=== PATIENT | male | born 1955 | race Caucasian/White ===

== ENCOUNTER 2025-05-23 09:39 | Outpatient (CLI) | payer MEDICARE, OTHER, SELFPAY ==
--- OUTSIDE RECORDS SUMMARY | 2025-05-09 11:30 | XMS_ITS | Encounter Summary ---
Author Organization [employer] ([place], [place], [place], [place]) Address [address] [address] Care Team Providers Care Product Trainer Name Role Phone Anusha Alberto PA-C Primary Care Provider Jorge Luis Meléndez MD Unavailable [phone] Reason for Referral * Consultation (Routine) - New Request Specialty Diagnoses / Procedures Referred By Coty jenkins Referred To Contact Gastroenterology Diagnoses Malignant neoplasm of prostate (HCC) Jorge Luis Meléndez MD [address] [facility] [address] [place] [address] Phone: tel: fax: Referral ID Status Reason Start Date Expiration Date Visits Requested Visits Authorized [id number] New Request Specialty Services Required 05/09/2025 05/09/2026 1 1 Reason for Visit * Reason Comments New Oncology Encounter Details Date Type Department Care Team (Late st Contact Info) Description 05/09/2025 11:30 AM EDT [facility] [address] [place] [address] Jorge Luis Meléndez MD [address] [facility] [address] [place] [address] Malignant neoplasm of prostate (HCC) (Primary Dx) Social History Tobacco Use Types Packs/Day Years Used Date Smoking Tobacco: Former Cigarettes 0.5 25 Passive Smoke Exposure: Never Smokeless Tobacco: Never Alcohol Use Standard Drinks/Week Comments Yes 0 (1 standard drink = 0.6 oz pur e alcohol) Family and Community Support Answer Jaiden e Recorded Help with Day to Day Activities Not on file 12/11/2023 Feeling Lonely or Isolated Not on file 12/11 Educational Attainment Answer Date Stanislav rded Speak language other than Kiswahili at home Not on file 12/11/2023 Want help with school or training Not on file 12/11/2023 Substance Use Answer Date Recorded Used prescription meds for non-medical reasons N ot on file 12/11/2023 Used illegal drugs past 12 months Not on file 12/11/2023 Sex and Gender Information Value Date Recorded Sex Assigned at Not on file Legal Sex Male 5:17 PM CDT Gender Identity Not on file Sexual Orientation Not on file documented as of this encounter Last Filed Vital Signs Vital Sign Reading Time Taken Comments Blood Pressure 136/72 05/09/2025 12:16 PM EDT Pulse 72 05/09/2025 12:16 PM EDT Temperature 36.6 C (97.9 F) 05/09/2025 12:16 PM EDT Respiratory Rate 18 05/09/2025 12:16 PM EDT Oxygen Saturation 100% 05/09/2025 12:16 PM EDT Inhaled Oxygen Concentration - - Weight 81.2 kg (179 lb) 05/09/2025 12:16 PM EDT Height 182.9 cm (6') 05/09/2025 12:16 PM EDT Body Mass Index 24.28 05/09/2025 12:16 PM EDT documented in this encounter Progress Notes * Jorge Luis Meléndez MD - 05/09/2025 11:30 AM EDT I met Mr. Homero Bell today. This elderly man had been seen by me many years ago. He has had a diagnosed prostate cancer and had prostate radiation. Apparently that disease under control. He had aEGD and was found to have dilated blood vessels at the GE junction. That was not treated. Patient is concerned about bleeding. He had known me from before and sought out my opinion. He has had a considerable history of liver disease. PMH NKDA Medications include metoprolol 25 mg daily omeprazole 20 mg daily gabapentin 100 mg 3 times a day hydrocodone as needed fluticasone nasal spray Eligard 45 mg every 6 months Has had a history of GERD esophageal reflux disease he has had liver disease with portal hypertension hypersplenism and has had treatment for varices. FH: No history of cancer in the family SH: He does not smoke does not drink he is retired ROS: 14 point review is otherwise unremarkable. Examination jaundiced male vital stable HEENT exam remarkable neck is supple lungs are clear heart regular rate and rhythm abdomen with a organomegaly extremities without edema neurologic examinationis without deficits Patient with dilated blood vessels at the GE junction Plan obviously there is nothing I can do to help this situation I am going to send him to a different manufacturing plant technician to see if they have a different approach you are willing to do something. I will have the patient return only as needed. I have answered his questions Jorge Luis Meléndez MD 05/09/2025 5:27 PM documented in this encounter Plan of Treatment Scheduled Referrals Name Type Priority Associated Diagnoses Order Schedule Ambulatory referral to Gastroenterology Outpatient Referral Routine Malignant neoplasm of prostate (HCC) Expected: 05/09/2025, Expires: 05/09/2026 documented as of this encounter Visit Diagnoses Diagnosis Malignant neoplasm of prostate (HCC)- Primary Malignant neoplasm of prostate documented in this encounter Care Teams Product Trainer Relationship Specialty Start Date End Date Anusha Alberto PA-C PCP - General Physician Reducing Machine Operator 10/09/22 Jorge Luis Meléndez MD [address] [place] [address] Hematology and Oncology 05/05/25 documented as of this encounter
--- OUTSIDE RECORDS SUMMARY | 2025-05-23 09:41 | XMS_ITS | Clinical Summary ---
Author Organization [facility] Address [address] [place] [address] Phone Care Team Providers Care Retail Maintenance Technician Name Role Phone Reema Leonardo MD [ ] Conditions or Problems Problem Name Problem Code Onset Date Status Entry Date Provider Comment Standard Description Annotate SPINAL STENOSIS 07131996 (SNOMED CT) 08/08 Active 08/08 Reema Leonardo MD Spinal stenosis FATIGUE, CHRONIC 87326669 (SNOMED CT) 08/08 Active 08/08 Reema Leonardo MD Fatigue THROMBOCYTO PENIA, CHRONIC 491816644 (SNOMED CT) 08/08 Active 08/08 Reema Leonardo MD Thrombocytopenic disorder CHRONIC HEPATITIS C WITHOUT MENTION HEPATIC COMA B18.2 (ICD-10-CM) 07/11 Active 07/11 Evelyn Adair Chronic viral hepatitis C Medications Medication Instructions Start Date Stop Date Generic Name NDC Provider RESTORIL CAPS TEMAZEPAM CAPS [id number] Reema Leonardo MD ROYAL JELLY CAPSULE ROYAL JELLY CAPS [id number] Reema Leonardo MD EQL MILK THISTLE CAPS MILK THISTLE CAPS [id number] Reema Leonardo MD TYLENOL COLD TABLET PSEUDOEPH-CPM -DM-APAP TABS [id number] Reema Leonardo MD ADVIL CAPS prn IBUPROFEN CAPS [phone] Reema Leonardo MD Medications Administered No information available. Allergies, Adverse Reactions, Alerts No information available. Results Date Name Value Unit Range Flag Description Lab Report: CBC+Platelet+Hem Review, Comp. Metabolic Panel (14), NGI HCV ... ANTI-HAV Positive (Negative) A Hepatiti s A virus Ab [Presence] in Serum HBSAGC Negative (Negative) Hepatitis B virus surface Ag [Presence] in Serum or Plasma by Confirmatory method ANTI-HBS 0.13 (0.00-0.99 ) Hepatitis B virus surface Ab [Presence] in Serum HCV GENOTYPE 1 a (See Note) Hepat itis C virus genotype [Identifier] in Serum or Plasma by RICCO with probe detection ACTIV PTT 27 s (24-33) aPTT in Blo od by Coagulation assay PT PATIENT 10.9 s (8.7-11.5) Prothro mbin time (PT) INR 1.0 (0.8-1.2) INR in Plat elet poor plasma by Coagulation assay [id number] IU/mL GE use only - for [employer] import when terms are not otherwise specified SGPT (ALT) 84 U/L (0-55) H Alanine aminotransferase [Enzymatic activity/volume] in Serum or Plasma SGOT (AST) 59 U/L (0-40) H Aspartate aminotransferase [Enzymatic activity/volume] in Serum or Plasma ALK PHOS 91 U/L (25-150) Alkaline ph osphatase [Enzymatic activity/volume] in Blood BILI TOTAL 4.1 mg/dL (0.0-1.2) H Bilirubi n.total [Mass/volume] in Serum or Plasma A/G RATIO 1.8 (1.1-2.5) Albumin/G lobulin [Mass Ratio] in Serum or Plasma GLOBULIN 2.8 (1.5-4.5) Globulin [Mass/volume] in Serum ALBUMIN 4.9 g/dL (3.5-5.5) Albumin [Ma ss/volume] in Serum or Plasma PROTEIN, TOT 7.7 g/dL (6.0-8.5) Protei n [Mass/volume] in Serum or Plasma CALCIUM 9.8 mg/dL (8.7-10.2) Calcium [Moles/volume] in Serum or Plasma CO2 23 mmol/L (20-32) Carbon dioxid e, total [Moles/volume] in Venous blood CHLORIDE 102 mmol/L (97-108) Chloride [Moles/volume] in Serum or Plasma POTASSIUM 4.2 mmol/L (3.5-5.2) Potassium [Moles/volume] in Serum or Plasma SODIUM 139 mmol/L (135-145) Sodium [Mol es/volume] in Serum or Plasma BUN/CREAT 14 (9-20) Urea nitrogen/Creatinine [Mass Ratio] in Serum or Plasma CREATININE 0.84 mg/dL (0.76-1.27 ) Creatinine [Mass/volume] in Serum or Plasma BUN 12 mg/dL (6-24) Urea nitrogen [Mass/volume] in Serum or Plasma BG RANDOM 93 mg/dL (65-99) Glucose [Ma ss/volume] in Blood NEUT CT MANU 2.0 X10E3/UL 10*3/mm3 (1.8-7.8) neutrophil count, blood, manual BASO % MANU 1 % (0-3) basophils as percent of blood leukocytes, manual count EOS % MANU 2 % (0-7) eosinophil s as percent of blood leukocytes, manual count MONOS % MANU 10 % (4-13) monocyte s as percent of blood leukocytes, manual count LYMPH % MANU 25 % (14-46) lymphocy bryant as percent of blood leukocytes, manual count PMN%(MANUAL) 62 (40-74) neutroph ils, polymorphonuclear as percent of blood leukocytes, manual count PLATELETS 112 X10E3/UL 10*3/mm3 (140-415) L Ever telets [#/volume] in Blood by Automated count RDW 13.2 % (11.7-15.0 ) Erythrocyte distribution width [Ratio] by Automated count MCHC 34.1 G/DL (32.0-36.0 ) MCHC [Mass/volume] by Automated count MCH 34.9 pg (27.0-34.0 ) H MCH [Entitic mass] by Automated count MCV 102 fL (80-98) H MCV [Entitic volume] by Automated count HCT 41.3 % (36.0-50.0 ) Hematocrit [Volume Fraction] of Blood by Automated count HGB 14.1 g/dL (12.5-17.0 ) Hemoglobin [Mass/volume] in Blood RBC 4.04 X10E6/UL 10*6/mm3 (4.10-5.60 ) L Erythrocytes [#/volume] in Blood by Automated count WBC 3.3 X10E3/UL 10*3/mm3 (4.0-10.5) L Leuk ocytes [#/volume] in Blood by Automated count Office Visit: rm5 MEDS REVIEW Done Documenta tion of current medications (procedure) SMOK STATUS former smoker Tob acco smoking status Plan of Care No information available. Procedures No information available. Vital Signs Date Name Value Unit Description BMI (Body Mass Index) 22.05 kg/m2 Bod y Mass Index (Ratio) Body Temperature 97.4 [degF] temperat ure E&M BP Diastolic 64 mm[Hg] blood pressu re, diastolic BP Systolic 132 mm[Hg] blood pressur e, systolic Heart Rate 76 /min pulse rate Height 72 [in_us] height E&M Respiratory Rate 16 /min respirat ory rate E&M Weight Measured 162 [lb_av] weight E& M Weight Measured 162 [lb_av] weight E& M Immunizations No information available. Advance Directives No information available.
--- OUTSIDE RECORDS SUMMARY | 2025-05-23 09:42 | XMS_ITS | Encounter Summary ---
Author Organization [facility] Address [address] [place] [address] Care Team Providers Care Scale Manager Name Role Phone Desiree Fofana Juliet OCONNELL Primary Care Provider [phone] Encounter Details Date Type Department Care Team (Late st Contact Info) Description 11/12/2017 Telephone [facility] [address] [place] [id number] Prince Gordillo MD [address] [place] [address] Social History Tobacco Use Types Packs/Day Years Used Date Smoking Tobacco: Former Cigarettes 0.5 10 1 - 09/10/2007 Smokeless Tobacco: Never Alcohol Use Standard Drinks/Week Comments Yes 0 (1 standard drink = 0.6 oz pure alcohol) Beer or glass of wine once a day Sex and Gender Information Value Date Recorded Sex Assigned at Not on file Legal Sex Male 12:05 PM EDT Gender Identity Not on file Sexual Orientation Not on file documented as of this encounter Plan of Treatment Upcoming Encounters Date Type Department Care Team (Late Contact Info) Description 08/23/2025 9:30 AM EDT Office Visit [facility] GASTR[facility]OLOGY [address] [facility] [address] [place] [address] Janet Burroughs APRN [address] [facility] [address] [place], [place] [id number] documented as of this encounter Visit Diagnoses Not on filedocumented in this encounter Additional Health Concerns Infection Onset Date Last Indicated Resolved Time COVID Screen (preop/placement) 08/01/2020 08/01/2020 08/01/2020 2:28 PM EDT documented as of this encounter Care Teams Scale Manager Relationship Specialty Start Date End Date Desiree Fofana DO [address] [place] [address] PCP - General Family Medicine 01/25/25 documented as of this encounter
--- OUTSIDE RECORDS SUMMARY | 2025-05-23 09:42 | XMS_ITS | Encounter Summary ---
Author Organization [employer] ([place], [place], [place], [place]) Address [address] [place] [address] Care Team Providers Care Jd Edwards Name Role Phone Anusha Alberto PA-C Primary Care Provider Jorge Luis Meléndez MD Unavailable [phone] Encounter Details Date Type Department Care Team (Late st Contact Info) Description 07/31/2020 Transcribed Document [facility] Family Medicine [address] [place] [address] ProviderСветлана MD [address] [place] [address] Social History Tobacco Use Types Packs/Day Years Used Date Smoking Tobacco: Never Assessed Sex and Gender Information Value Date Recorded Sex Assigned at Not on file Legal Sex Male 5:17 PM CDT Gender Identity Not on file Sexual Orientation Not on file documented as of this encounter Miscellaneous Notes * [employer] Conversion Note - Светлана ProviderMD - 07/31/2020 9:31 AM CDT Patient: JACKSON BELL Age: 65 years Sex: Male : 1955 Associated Diagnoses: None Author: ITZ GRANT PA-C PRE PROCEDURE NOTE I have evaluated the patient prior to the procedure. ASA score: 2 Mallampati score: 2 ASA SCORE ASA 1: Healthy patients ASA 2 : Mild to moderate systemic disease caused by the surgical condition or by other pathological processes, and medically well controlled. ASA 3: Severe disease process which limits activity but is not incapacitating ASA 4: Severe incapacitating disease process that is a constant threat to life ASA 5: Moribund patient not expected to survive 24 hours with or without an operation ASA 6: Declared brain- patient whose organs are being removed for donor purposes Mallampati Score Class I: Soft palate, uvula, fauces, pillars visible. Class II: Soft palate, major part of uvula, fauces visible Class III: Soft palate, base of uvula visible Class IV: Only hard palate visible documented in this encounter Plan of Treatment Not on file documented as of this encounter Visit Diagnoses Not on filedocumented in this encounter Care Teams Jd Edwards Relationship Specialty Start Date End Date Anusha Alberto PA-C PCP - General Physician Spin Tank Tender 10/09/22 Jorge Luis Meléndez MD [address] [place] [address] Hematology and Oncology 05/05/25 documented as of this encounter
--- OUTSIDE RECORDS SUMMARY | 2025-05-23 09:42 | XMS_ITS | Encounter Summary ---
Author Organization [employer] ([place], [place], [place], [place]) Address [address] [place] [address] Care Team Providers Care Gold Letterer Name Role Phone Anusha Alberto PA-C Primary Care Provider Jorge Luis Meléndez MD Unavailable [phone] Encounter Details Date Type Department Care Team (Late st Contact Info) Description 08/01/2020 Transcribed Document [facility] [place] [address] [place] [address] ProviderСветлана MD [address] [place] [address] Social History Tobacco Use Types Packs/Day Years Used Date Smoking Tobacco: Never Assessed Sex and Gender Information Value Date Recorded Sex Assigned at Not on file Legal Sex Male 5:17 PM CDT Gender Identity Not on file Sexual Orientation Not on file documented as of this encounter Miscellaneous Notes * [employer]ner Conversion Note - Светлана ProviderMD - 08/01/2020 2:57 AM CDT [facility] [address] [place] [address] PERSON INFORMATION Name JACKSON BELL Age 65 Years 1955 Sex Male Language Malian PCP ANNIKA [address] Marital Status Med Service Emergency Medicine Acct# Arrival 07/31/2020 20:31:00 Visit Reason Abdominal pain; Abdominal pain; HAD LIVER BIOSPY TODAY/ SEVERE PAIN AND NAUSEA Acuity 3 - Urgent LOS 000 06:26 Depart Date: 00:00 AM Address: [facility] [address] [place] [address] Comment: PROVIDER INFORMATION Provider Role Assigned Unassigned Laura Lopez, [employer] PARKER Nurse 07/31/2020 21:19:23 GLORIA CORDERO MD ED Physician 07/31/2020 21:33:56 DIAGNOSIS Acute hepatic failure PHYS DOC NOTES VITALS INFORMATION Vital Sign Triage Latest Temp Source Tympanic Tympanic Temp Mode Fahrenheit Fahrenheit Temp Fahrenheit 98.1 Deg F 98.1 Deg F Temp Celsius 02 Sat 100 % 97 % Respiratory Rate 18 Breaths/Min 16 Breaths/Min Peripheral Pulse Rate 81 bpm 81 bpm Apical Heart Rate Blood Pressure 109 mmHg / 68 mmHg 156 mmHg / 74 mmHg Comment: MEDICAL INFORMATION Allergy Info: No Known Allergies Medications: Comment: DISCHARGE INFORMATION Discharge Disposition: Discharge Location: PATIENT EDUCATION INFORMATION Instructions: Liver Failure Follow up: Comment: Electronically signed by Efren [facility] Conversion Weather Anchor Cerner at 03/11/2023 10:33 AM CDT documented in this encounter Plan of Treatment Not on file documented as of this encounter Visit Diagnoses Not on filedocumented in this encounter Care Teams Gold Letterer Relationship Specialty Start Date End Date Anusha Alberto PA-C PCP - General Physician Certified Medical Assistant 10/09/22 Jorge Luis Meléndez MD [address] [address] Hematology and Oncology 05/05/25 documented as of this encounter
--- OUTSIDE RECORDS SUMMARY | 2025-05-23 09:42 | XMS_ITS | Encounter Summary ---
Author Organization [email or web address] ([place], [place], [place], [place]) Address [address] [place] [address] Care Team Providers Care Tool And Equipment Rental Clerk Name Role Phone Anusha Alberto PA-C Primary Care Provider Jorge Luis Meléndez MD Unavailable [phone] Encounter Details Date Type Department Care Team (Late st Contact Info) Description 07/31/2020 Transcribed Document [facility] [place] [address] [place] [address] ProviderСветлана MD [address] [place] [address] Social History Tobacco Use Types Packs/Day Years Used Date Smoking Tobacco: Never Assessed Sex and Gender Information Value Date Recorded Sex Assigned at Not on file Legal Sex Male 5:17 PM CDT Gender Identity Not on file Sexual Orientation Not on file documented as of this encounter Miscellaneous Notes * Cerner Conversion Note - Светлана ProviderMD - 07/31/2020 7:28 AM CDT Pre Procedure Adult Entered On: 07/31/2020 7:31 EDT Performed On: 07/31/2020 7:28 EDT by GUIDO MCKINNEY RN Height and Weight, Clinical Dosing Height Source : Measured Height Entry Format : [place] Height, Feet : 6 ft(Converted to: 183 cm, 72 Inch) Height, Inches : 0 Inch(Converted to: 0 ft 0 Inch, 0.00 cm) Clinical Height : 182.88 cm Weight Source : Standing scale Weight Entry Format : [place] Clinical Dosing Weight : 79.55 kg Weight, Pounds : 175 lb Body Surface Area (BSA) : 2.01 m2 Body Mass Index : 23.8 kg/m2 [place] Body Weight : 77 kg GUIDO MCKINNEY RN - 07/31/2020 7:28 EDT Health Histories Smoking Status : Former smoker, quit more than 30 days ago Smokeless Tobacco Status : Never GUIDO MCKINNEY RN - 07/31/2020 7:28 EDT Social History (As Of: 07/31/2020 07:31:39 EDT) Tobacco: Smoking Status Former smoker. Years of Use: 10. Packs/Tins Daily: .5. Last Used: 1989. (Last Updated: 10/28/2013 08:51:40 EST by LAN FAJARDO, RN) Alcohol: Use in Last 12 Months: Yes. Days/Week: 2. (Last Updated: 10/28/2013 08:51:40 EST by LAN FAJARDO, RN) Substance Abuse: Drug Use Hx: No. Use in Last 12 Months: No. (Last Updated: 02/20/2015 07:36:57 EDT by LUZ MARINA MCCOY RN) Infectious Disease History Has the patient ever been tested for COVID-19? : Yes, Patient stated results pending Date of COVID-19 test known? : No Does patient have symptoms of COVID-19? : No COVID19 Screening : No Experiencing Infectious Disease Symptoms : No symptoms Physical contact outside US in the last 30 days : No Infectious Disease History : None, Hepatitis C, Hepatitis Non A, B, C Tuberculosis Symptoms : None GUIDO MCKINNEY RN - 07/31/2020 7:28 EDT COVID19 PreProcedure Screening Is this an Emergent or Add on Procedure? : No Has patient been isolated since the test : N/A - PreProcedure, in-person visit Exposed to COVID19 symptoms since test? : N/A - PreProcedure, in-person visit GUIDO MCKINNEY RN - 07/31/2020 7:28 EDT Anesthesia/Transfusion History Family History of Anesthesia Reaction : Prior transfusion without reaction Blood Transfusion Acceptable to Patient : Yes Transfusion History : Prior anesthesia without reaction Family History of Anesthesia Reaction : None GUIDO MCKINNEY RN - 07/31/2020 7:28 EDT Functional Assessment Living Situation : Home Patient Lives With : Spouse Current Home Treatments : None GUIDO MCKINNEY RN - 07/31/2020 7:28 EDT [place] Suicide Severity Rating Scale (C-SSRS) CSSRS Past Month Wish to be : No CSSRS Past Month Suicidal Thoughts : No CSSRS Lifetime Suicide Behavior : No Suicide Severity Rating Score : 0 Suicide Severity Rating : No Additional Care Required at this time GUIDO MCKINNEY RN - 07/31/2020 7:28 EDT Psychosocial History Do You Have a History of the Following? : Patient denies history Currently in Unsafe Situation : No GUIDO MCKINNEY RN - 07/31/2020 7:28 EDT Advance Directive Patient has Advance Directive *Q : No, patient refuses Advance Directive information GUIDO MCKINNEY RN - 07/31/2020 7:28 EDT Teaching/Learning Assessment Barriers To Learning : None evident Individuals Taught : Patient Readiness to Learn : Cooperative Baseline Knowledge of Topic : Good Readiness to Learn : Explanation, Printed materials Learning Style Preferences Patient : Demonstration, Printed materials Learning Style Preferences Family : Verbal explanation GUIDO MCKINNEY RN - 07/31/2020 7:28 EDT General Info Support Person/Pt Rep Name : Renetta Support Person/Pt Rep Contact Information : [phone] Want Family/Rep/Phys Notified of Admit : No Emergency Contact #1 : Renetta Emergency Contact #1 Emergency Contact #1 Relationship : Emergency Contact #2 : na Emergency Contact #2 Phone Number : na Emergency Contact #2 Relationship : na Chief Complaint : liver biopsy Primary Language : Gabonese Preferred Communication Mode : Verbal Communication Barrier : None Plaster Caster Needed : GUIDO Reeves RN - 07/31/2020 7:28 EDT Vital Measurements Temperature Source : Temporal artery scanning Temperature Mode : Fahrenheit Temperature, Fahrenheit : 97.3 Deg F Clinical Temperature, C : 36.3 Deg C Pulse Method : Non-Invasive BP Device Pulse Source : Brachial, Right Peripheral Pulse Rate : 85 bpm Respiratory Rate : 16 Breaths/Min Blood Pressure Location : Arm, right upper Blood Pressure Source : Non-Invasive BP Device Blood Pressure Position : Supine Systolic Blood Pressure : 184 mmHg (HI) Diastolic Blood Pressure : 90 mmHg Oxygen Saturation : 100 % Oxygen Therapy Mode : Room air GUIDO MCKINNEY RN - 07/31/2020 7:28 EDT Sleep Apnea Risk Assmt Hx of Obstructive Sleep Apnea Diagnosis : No Snore Loudly : No Tired, Fatigued, or Sleepy During Day : No Observed Stopping Breathing During Sleep : No Have/Are Being Treated for Hypertension : No BMI Greater Than 35 kg/m2 : No Age over 50 Years Old : Yes Neck Circumference Greater Than 40 cm : No Gender Male : Yes STOP-BANG Sleep Apnea Risk Level Score : 2 GUIDO MCKINNEY RN - 07/31/2020 7:28 EDT James Scale James Sensory Perception : No impairment James Moisture : Rarely moist James Activity : Walks frequently James Mobility : No limitation James Nutrition : Adequate James Friction and Shear : No apparent problem James Score : 22 GUIDO MCKINNEY RN - 07/31/2020 7:28 EDT Pain Assessment Pain Assessment : Initial assessment Pain Scale Used : 0-10 Scale Location : Abdomen, right upper, Other: joints GUIDO MCKINNEY RN - 07/31/2020 7:28 EDT Fall Risk Scales ABCs Fall Injury Risk Identification : None DOUGLASS Hx Falls Immediate/Within 3 Months : No [place] Secondary Diagnosis : No DOUGLASS Use of Ambulatory Aid : None D[place] IV Therapy or IV Access : Yes [place] Gait/Transferring : Normal, bedrest, immobile [place] Mental Status : Oriented to own ability [place] Fall Risk Score : 20 D[place] Fall Scale Risk Level : 0-24 Low Risk [place] Fall Interventions : Adequate lighting, Assistive devices within reach, Bed in low position, Call device within reach, Hourly comfort/safety rounds Fall Moderate to High Risk Interventions : Patient room close to nurses station Fall Risk Scale Calc Temp : 0 GUIDO MCKINNEY RN - 07/31/2020 7:28 EDT Valuables and Belongings Valuables and Belongings : Clothing Clothing : Common streetwear Clothing Disposition : With patient, Declines to send to security/safe GUIDO MCKINNEY RN - 07/31/2020 7:28 EDT Pain Scale Intensity : 7 GUIDO MCKINNEY RN - 07/31/2020 7:28 EDT Image 4 - Images currently included in the form version of this document have not been included in the text rendition version of the form. Kg Coma Kg Best Motor Response : Obey commands [place] Best Verbal Response : Oriented Kg Eye Opening Response : Spontaneous Kg Coma Score : 15 GUIDO MCKINNEY RN - 07/31/2020 7:28 EDT documented in this encounter Plan of Treatment Not on file documented as of this encounter Visit Diagnoses Not on filedocumented in this encounter Care Teams Tool And Equipment Rental Clerk Relationship Specialty Start Date End Date Anusha Alberto PA-C PCP - General Physician Agile Qa Tester 10/09/22 Jorge Luis Meléndez MD [address] [place] [id number] Hematology and Oncology 05/05/25 documented as of this encounter
--- OUTSIDE RECORDS SUMMARY | 2025-05-23 09:42 | XMS_ITS | Encounter Summary ---
Author Organization [employer] ([place], [place], [place], [place]) Address [address] [place] [address] Care Team Providers Care Boxing And Pressing Supervisor Name Role Phone Anusha Alberto PA-C Primary Care Provider Jorge Luis Meléndez MD Unavailable [phone] Encounter Details Date Type Department Care Team (Late st Contact Info) Description 07/31/2020 Transcribed Document [facility] [place] Medicine [address] [place] [address] ProviderСветлана MD [address] [place] [address] Social History Tobacco Use Types Packs/Day Years Used Date Smoking Tobacco: Never Assessed Sex and Gender Information Value Date Recorded Sex Assigned at Not on file Legal Sex Male 5:17 PM CDT Gender Identity Not on file Sexual Orientation Not on file documented as of this encounter Miscellaneous Notes * Cerner Conversion Note - Светлана ProviderMD - 07/31/2020 11:54 AM CDT Nursing Discharge Summary Entered On: 07/31/2020 11:56 EDT Performed On: 07/31/2020 11:54 EDT by GUIDO MCKINNEY RN Discharge Documentation Discharge Date/Time : 07/31/2020 11:40 EDT Transporter Signature : GUIDO MCKINNEY RN Patient Disposition, General : Discharge Discharge To : Home with ambulatory/outpatient follow-up Mode Of Departure, General Discharge : Wheelchair with adult Accompanied By, Discharge : Spouse IV Discontinued : Yes Personal Belongings With Patient : Yes Pt's Own Supply of Medications Returned : No patient supply of medications to return Prescriptions Given to Patient : Other: n/a Medications Given to Patient : Yes Discharge Instructions Reviewed With, Opportunity For Questions Given : Patient, Spouse Patient Education Completed : Yes Teaching Method : Explanation, Printed materials Teaching Evaluation : Verbalizes understanding GUIDO MCKINNEY RN - 07/31/2020 11:54 EDT Electronically signed by Efren [facility] Conversion Roaster Helper Cerner at 03/11/2023 10:25 AM CDT documented in this encounter Plan of Treatment Not on file documented as of this encounter Visit Diagnoses Not on filedocumented in this encounter Care Teams Boxing And Pressing Supervisor Relationship Specialty Start Date End Date Anusha Alberto PA-C PCP - General Physician Metal Worker 10/09/22 Jorge Luis Melén[place] [address] [place] [phone] Hematology and Oncology 05/05/25 documented as of this encounter
--- OUTSIDE RECORDS SUMMARY | 2025-05-23 09:42 | XMS_ITS | Encounter Summary ---
Author Organization [employer] ([place], [place], [place], [place]) Address [address] [place] [address] Care Team Providers Care Nursing Specialist Name Role Phone Anusha Alberto PA-C Primary Care Provider Jorge Luis Meléndez MD Unavailable [phone] Encounter Details Date Type Department Care Team (Late st Contact Info) Description 07/31/2020 Transcribed Document [facility] Family Medicine [address] [place] [address] ProviderСветлана MD [address] [place] [address] Social History Tobacco Use Types Packs/Day Years Used Date Smoking Tobacco: Never Assessed Sex and Gender Information Value Date Recorded Sex Assigned at Not on file Legal Sex Male 5:17 PM CDT Gender Identity Not on file Sexual Orientation Not on file documented as of this encounter Miscellaneous Notes * Cerner Conversion Note - Светлана ProviderMD - 07/31/2020 8:31 PM CDT ED Triage Entered On: 07/31/2020 21:17 EDT Performed On: 07/31/2020 21:14 EDT by Pina Franklin RN ED Triage Across the Room Chief Complaint : Pt co Right sided abdominal pain to back that began at noon today. Pt had Liver biopsy performed today at 9am Pt is grimacing in pain. Triage Date/Time : 07/31/2020 21:14 EDT Pina Franklin RN - 07/31/2020 21:14 EDT DCP GENERIC CODE Tracking Acuity : 3 - Urgent Tracking Group : [facility] Pina Franklin RN - 07/31/2020 21:14 EDT Mode of Arrival : Wheelchair Transported to ED by : Private vehicle To Room Via : Wheelchair Accompanied By : Significant other ED Vital Signs : Document Height & Weight : Document ED Allergies : Document ED Reason for Visit : Document Pina Franklin RN - 07/31/2020 21:14 EDT Infectious Disease History Has the patient ever been tested for COVID-19? : Yes, Patient stated results Negative Date of COVID-19 test known? : No Date Comment : Thursday Does patient have symptoms of COVID-19? : No COVID19 Screening : No Experiencing Infectious Disease Symptoms : Abdominal pain Physical contact outside US in the last 30 days : No Infectious Disease History : None, Hepatitis C, Hepatitis Non A, B, C Tuberculosis Symptoms : None Pina Franklin RN - 07/31/2020 21:14 EDT Vital Signs ED Temperature Source : Tympanic Temperature Mode : Fahrenheit Temperature, Fahrenheit : 98.1 Deg F ED Pain : Yes Clinical Temperature, C : 36.7 Deg C Oxygen Therapy Mode : Room air, Venti-Mask Peripheral Pulse Rate : 81 bpm Respiratory Rate : 18 Breaths/Min Systolic Blood Pressure : 109 mmHg Diastolic Blood Pressure : 68 mmHg Oxygen Saturation : 100 % Pina Franklin RN - 07/31/2020 21:14 EDT Allergy (As Of: 07/31/2020 21:17:20 EDT) Allergies (Active) No Known Allergies Estimated Onset Date: Unspecified ; Created By: ALTHAE REID RPh; Reaction Status: Active ; Substance: No Known Allergies ; Type: Allergy ; Updated By: ALTHEA REID RPh; Reviewed Date: 07/26/2020 13:56 EDT Diagnosis Control ED (As Of: 07/31/2020 21:17:20 EDT) Problems(Active) Anemia (SNOMED CT :884179499 ) Name of Problem: Anemia ; Recorder: LUZ MARINA MCCOY RN; Confirmation: Confirmed ; Classification: Patient Stated ; Code: [id number] ; Contributor System: [employer] ; Last Updated: 02/20/2015 7:30 EDT ; Life Cycle Date: 02/20/2015 ; Life Cycle Status: Active ; Vocabulary: SNOMED CT Arthritis (SNOMED CT :6416677 ) Name of Problem: Arthritis ; Recorder: LUZ MARINA MCCOY RN; Confirmation: Confirmed ; Classification: Patient Stated ; Code: 3968793 ; Contributor System: [employer] ; Last Updated: 02/20/2015 7:29 EDT ; Life Cycle Date: 02/20/2015 ; Life Cycle Status: Active ; Vocabulary: SNOMED CT At risk for sleep apnea (IMO :94677683 ) Name of Problem: At risk for sleep apnea ; Recorder: SYSTEM, SYSTEM; Confirmation: Confirmed ; Classification: Medical ; Code: [id number] ; Last Updated: 07/26/2020 14:04 EDT ; Life Cycle Date: 07/26/2020 ; Life Cycle Status: Active ; Vocabulary: IMO Back pain (SNOMED CT :348636876 ) Name of Problem: Back pain ; Recorder: LUZ MARINA MCCOY RN; Confirmation: Confirmed ; Classification: Patient Stated ; Code: 213630946 ; Contributor System: Power[employer] ; Last Updated: 02/20/2015 7:29 EDT ; Life Cycle Date: 02/20/2015 ; Life Cycle Status: Active ; Vocabulary: SNOMED CT Disorder of prostate (SNOMED CT :53579300 ) Name of Problem: Disorder of prostate ; Recorder: LAN FAJARDO RN; Confirmation: Confirmed ; Classification: Patient Stated ; Code: 54718330 ; Contributor System: [employer] ; Last Updated: 05/04/2014 19:28 EDT ; Life Cycle Date: 10/28/2013 ; Life Cycle Status: Active ; Vocabulary: SNOMED CT Fibrosis of liver (SNOMED CT :147601564 ) Name of Problem: Fibrosis of liver ; Recorder: LAN FAJARDO RN; Confirmation: Confirmed ; Classification: Patient Stated ; Code: 776126770 ; Contributor System: [employer] ; Last Updated: 05/04/2014 19:28 EDT ; Life Cycle Date: 10/28/2013 ; Life Cycle Status: Active ; Vocabulary: SNOMED CT GERD - Gastro-esophageal reflux disease (SNOMED CT :2295326673 ) Name of Problem: GERD - Gastro-esophageal reflux disease ; Recorder: LUZ MARINA MCCOY RN; Confirmation: Confirmed ; Classification: Patient Stated ; Code: 1874920196 ; Contributor System: Power[employer] ; Last Updated: 02/20/2015 7:28 EDT ; Life Cycle Date: 02/20/2015 ; Life Cycle Status: Active ; Vocabulary: SNOMED CT Hiatal hernia (SNOMED CT :615213002 ) Name of Problem: Hiatal hernia ; Recorder: LUZ MARINA MCCOY RN; Confirmation: Confirmed ; Classification: Patient Stated ; Code: 779327359 ; Contributor System: PowerChart ; Last Updated: 02/20/2015 7:28 EDT ; Life Cycle Date: 02/20/2015 ; Life Cycle Status: Active ; Vocabulary: SNOMED CT High blood pressure (SNOMED CT :14598275 ) Name of Problem: High blood pressure ; Recorder: LAN FAJARDO RN; Confirmation: Confirmed ; Classification: Patient Stated ; Code: 34946016 ; Contributor System: Power[employer] ; Last Updated: 05/04/2014 19:28 EDT ; Life Cycle Date: 10/28/2013 ; Life Cycle Status: Active ; Vocabulary: SNOMED CT Irritable bowel syndrome (SNOMED CT :75913888 ) Name of Problem: Irritable bowel syndrome ; Recorder: LUZ MARINA MCCOY RN; Confirmation: Confirmed ; Classification: Patient Stated ; Code: 87801433 ; Contributor System: [employer] ; Last Updated: 02/20/2015 7:28 EDT ; Life Cycle Date: 02/20/2015 ; Life Cycle Status: Active ; Vocabulary: SNOMED CT Murmur (SNOMED CT :934826014 ) Name of Problem: Murmur ; Recorder: LUZ MARINA MCCOY RN; Confirmation: Confirmed ; Classification: Patient Stated ; Code: 495954587 ; Contributor System: [employer] ; Last Updated: 02/20/2015 7:27 EDT ; Life Cycle Date: 02/20/2015 ; Life Cycle Status: Active ; Vocabulary: SNOMED CT Peripheral vascular disease (SNOMED CT :8007922159 ) Name of Problem: Peripheral vascular disease ; Recorder: LUZ MARINA MCCOY RN; Confirmation: Confirmed ; Classification: Patient Stated ; Code: 9469429255 ; Contributor System: [employer] ; Last Updated: 02/20/2015 7:27 EDT ; Life Cycle Date: 02/20/2015 ; Life Cycle Status: Active ; Vocabulary: SNOMED CT Prostate cancer (SNOMED CT :3354742128 ) Name of Problem: Prostate cancer ; Recorder: CHRISTELLE CHANDRA RN; Confirmation: Confirmed ; Classification: Patient Stated ; Code: 6295957442 ; Contributor System: [employer] ; Last Updated: 07/26/2020 13:58 EDT ; Life Cycle Date: 07/26/2020 ; Life Cycle Status: Active ; Vocabulary: SNOMED CT Restless legs syndrome (SNOMED CT :79669834 ) Name of Problem: Restless legs syndrome ; Recorder: LUZ MARINA MCCOY RN; Confirmation: Confirmed ; Classification: Patient Stated ; Code: 73544595 ; Contributor System: [employer] ; Last Updated: 02/20/2015 7:29 EDT ; Life Cycle Date: 02/20/2015 ; Life Cycle Status: Active ; Vocabulary: SNOMED CT Diagnoses(Active) Abdominal pain Date: 07/31/2020 ; Diagnosis Type: Reason For Visit ; Confirmation: Complaint of ; Clinical Dx: Abdominal pain ; Classification: Medical ; Clinical Service: Non-Specified ; Code: PNED ; Probability: 0 ; Diagnosis Code: [id number] ED Height and Weight Height Source : Measured Height Entry Format : [place] Height, Feet : 6 ft(Converted to: 183 cm, 72 Inch) Height, Inches : 0 Inch(Converted to: 0 ft 0 Inch, 0.00 cm) Clinical Height : 182.88 cm Weight Source, ED : Critical estimated dosing weight Weight Entry Format : [place] Weight, Pounds : 175 lb Clinical Dosing Weight : 79.55 kg Body Surface Area (BSA) : 2.01 m2 Body Mass Index : 23.8 kg/m2 [place] Body Weight (IBW) : 76.59 kg Pina Franklin RN - 07/31/2020 21:14 EDT Pain Assessment Pain Assessment : Initial assessment Pain Scale Used : 0-10 Scale Pina Franklin RN - 07/31/2020 21:14 EDT Pain Scale Intensity : 9 Pina Franklin RN - 07/31/2020 21:14 EDT Image 4 - Images currently included in the form version of this document have not been included in the text rendition version of the form. documented in this encounter Plan of Treatment Not on file documented as of this encounter Visit Diagnoses Not on filedocumented in this encounter Care Teams Nursing Specialist Relationship Specialty Start Date End Date Anusha Alberto PA-C PCP - General Physician Die Cutter Diamond 10/09/22 Jorge Luis Meléndez MD [address] [phone] Hematology and Oncology 05/05/25 documented as of this encounter
--- OUTSIDE RECORDS SUMMARY | 2025-05-23 09:42 | XMS_ITS | Encounter Summary ---
Author Organization [employer] ([place], [place], [place], [place]) Address [address] [place] [address] Care Team Providers Care Cotton Jammer Name Role Phone Anusha Alberto PA-C Primary Care Provider Jorge Luis Meléndez MD Unavailable [phone] Encounter Details Date Type Department Care Team (Late st Contact Info) Description 07/31/2020 Transcribed Document [facility] [place] [address] [place] [address] ProviderСветлана MD [address] [place] [address] Social History Tobacco Use Types Packs/Day Years Used Date Smoking Tobacco: Never Assessed Sex and Gender Information Value Date Recorded Sex Assigned at Not on file Legal Sex Male 5:17 PM CDT Gender Identity Not on file Sexual Orientation Not on file documented as of this encounter Miscellaneous Notes * Cerner Conversion Note - Светлана ProviderMD - 07/31/2020 9:41 PM CDT Pain Assessment Entered On: 07/31/2020 22:53 EDT Performed On: 07/31/2020 22:53 EDT by Laura Lopez RN Intervention Information: morphine Performed by Laura Lopez RN on 07/31/2020 22:21:00 EDT morphine,4mg IV Push,Left Antecubital [place] Pain Assessment Pain Assessment : Follow-up assessment Pain Scale Used : FACES Pain Intervention, Drug : Medicated Pain Improved by Intervention : No Laura Lopez RN - 07/31/2020 22:53 EDT Pain Scale Intensity : 9 March, Laura Buchanan RN - 07/31/2020 22:53 EDT Image 4 - Images currently included in the form version of this document have not been included in the text rendition version of the form. documented in this encounter Plan of Treatment Not on file documented as of this encounter Visit Diagnoses Not on filedocumented in this encounter Care Teams Cotton Jammer Relationship Specialty Start Date End Date Anusha Alberto PA-C PCP - General Physician Technology Development Intern 10/09/22 Jorge Luis Meléndez MD [address] [place] [phone] Hematology and Oncology 05/05/25 documented as of this encounter
--- OUTSIDE RECORDS SUMMARY | 2025-05-23 09:42 | XMS_ITS | Encounter Summary ---
Author Organization [employer] ([place], [place], [place], [place]) Address [address] [place] [address] Care Team Providers Care Communication Analyst Name Role Phone Anusha Alberto PA-C Primary Care Provider Jorge Luis Meléndez MD Unavailable [phone] Encounter Details Date Type Department Care Team (Late st Contact Info) Description 07/31/2020 Transcribed Document [facility] [place] Family Medicine [address] [place] [address] ProviderСветлана MD [address] [place] [address] Social History Tobacco Use Types Packs/Day Years Used Date Smoking Tobacco: Never Assessed Sex and Gender Information Value Date Recorded Sex Assigned at Not on file Legal Sex Male 5:17 PM CDT Gender Identity Not on file Sexual Orientation Not on file documented as of this encounter Miscellaneous Notes * Cerner Conversion Note - Светлана ProviderMD - 07/31/2020 8:31 PM CDT ED Assessment Entered On: 07/31/2020 23:37 EDT Performed On: 07/31/2020 21:20 EDT by Laura Lopez, NUCLEAR TECHNOLOGIST Quick Look Assessment Level of Consciousness : Alert, Awake Affect/Behavior : Appropriate, Calm, Cooperative Orientation : Oriented x 4 Skin Temperature : Warm Skin Description : Normal for ethnicity Laura Lopez RN - 07/31/2020 23:37 EDT ED General-Functional Assess Information Obtained From : Patient Preferred Communication Mode : Verbal Communication Barrier : None Primary Language : Turkish Any Spiritual/Cultural Needs or Requests : No Currently in Unsafe Situation : No Laura Lopez RN - 07/31/2020 23:37 EDT Social Habits Smoking Status : Former smoker, quit more than 30 days ago Smokeless Tobacco Status : Never Desires Tobacco Cessation Calc : 0 Laura Lopez RN - 07/31/2020 23:37 EDT Social History (As Of: 07/31/2020 23:37:44 EDT) Tobacco: Smoking Status Former smoker. Years of Use: 10. Packs/Tins Daily: .5. Last Used: 1989. (Last Updated: 10/28/2013 08:51:40 EST by LAN FAJARDO, RN) Alcohol: Use in Last 12 Months: Yes. Days/Week: 2. (Last Updated: 10/28/2013 08:51:40 EST by LAN FAJARDO, RN) Substance Abuse: Drug Use Hx: No. Use in Last 12 Months: No. (Last Updated: 02/20/2015 07:36:57 EDT by LUZ MARINA MCCOY, KALYANI) Respiratory Respiratory Assessment WDL : WDL Cough : None Respiratory Pattern Description : Regular Laura Lopez RN - 07/31/2020 23:37 EDT Gastrointestinal ED Gastrointestinal Assessment WDL : WDL with exceptions Gastrointestinal Symptoms : Abdominal pain, Nausea, Vomiting Laura Lopez RN - 07/31/2020 23:37 EDT Integumentary Assessment Skin Description : Normal for ethnicity Skin Temperature : Warm Integumentary Assessment WDL : WDL Skin Turgor : Elastic Laura Lopez RN - 07/31/2020 23:37 EDT Neurologic ASMT, ED Neurologic Assessment WDL : WDL Neurological Symptoms : None Level of Consciousness : Alert, Awake Affect/Behavior : Appropriate, Calm, Cooperative Speech : Clear Orientation : Oriented x 4 Pupils Equal, Round, Reactive to Light : Yes Laura Lopez RN - 07/31/2020 23:37 EDT Electronically signed by Gato Schwartz Conversion Fretted String Instrument Repairer Cerner at 03/11/2023 10:24 AM CDT documented in this encounter Plan of Treatment Not on file documented as of this encounter Visit Diagnoses Not on filedocumented in this encounter Care Teams Communication Analyst Relationship Specialty Start Date End Date Anusha Alberto PA-C PCP - General Physician Caseworker Intake 10/09/22 Jorge Luis Meléndez MD [address] [address] Hematology and Oncology 05/05/25 documented as of this encounter
--- OUTSIDE RECORDS SUMMARY | 2025-05-23 09:42 | XMS_ITS | Encounter Summary ---
Author Organization [employer] ([place], [place], [place], [place]) Address [address] [place] [address] Care Team Providers Care Agent Contract Clerk Name Role Phone Anusha Alberto PA-C Primary Care Provider Jorge Luis Meléndez MD Unavailable [phone] Encounter Details Date Type Department Care Team (Late st Contact Info) Description 07/31/2020 Transcribed Document [facility] [place] [address] [place] [address] ProviderСветлана MD [address] [place], [place] [address] Social History Tobacco Use Types Packs/Day Years Used Date Smoking Tobacco: Never Assessed Sex and Gender Information Value Date Recorded Sex Assigned at Not on file Legal Sex Male 5:17 PM CDT Gender Identity Not on file Sexual Orientation Not on file documented as of this encounter Miscellaneous Notes * Cerner Conversion Note - Светлана ProviderMD - 07/31/2020 7:39 AM CDT Stroke/Warfarin Instructions Entered On: 07/31/2020 7:39 EDT Performed On: 07/31/2020 7:39 EDT by GUIDO MCKINNEY RN Stroke/Warfarin Instructions Stroke/TIA Discharge Ins : N/A Warfarin Discharge Ins : N/A GUIDO MCKINNEY RN - 07/31/2020 7:39 EDT documented in this encounter Plan of Treatment Not on file documented as of this encounter Visit Diagnoses Not on filedocumented in this encounter Care Teams Agent Contract Clerk Relationship Specialty Start Date End Date Anusha Alberto PA-C PCP - General Physician Fishing Vessel Deckhand 10/09/22 Jorge Luis Meléndez MD [address] [address] Hematology and Oncology 05/05/25 documented as of this encounter
--- OUTSIDE RECORDS SUMMARY | 2025-05-23 09:42 | XMS_ITS | Encounter Summary ---
Author Organization [employer] ([place], [place], [place], [place]) Address [address] [place] [address] Care Team Providers Care Punch Press Operator Helper Name Role Phone Anusha Alberto PA-C Primary Care Provider Jorge Luis Melnédez MD Unavailable [phone] Encounter Details Date Type Department Care Team (Late st Contact Info) Description 07/31/2020 Transcribed Document [facility] [place] [address] [place] [address] ProviderСветлана MD [address] [place], [place] [address] Social History Tobacco Use Types Packs/Day Years Used Date Smoking Tobacco: Never Assessed Sex and Gender Information Value Date Recorded Sex Assigned at Not on file Legal Sex Male 5:17 PM CDT Gender Identity Not on file Sexual Orientation Not on file documented as of this encounter Miscellaneous Notes * Cerner Conversion Note - Светлана ProviderMD - 07/31/2020 10:56 PM CDT Pain Assessment Entered On: 08/01/2020 0:16 EDT Performed On: 08/01/2020 0:16 EDT by Laura Lopez RN Intervention Information: morphine Performed by Laura Lopez RN on 07/31/2020 22:56:00 EDT morphine,4mg IV Push,Left Antecubital [place] Pain Assessment Pain Assessment : Follow-up assessment Pain Scale Used : FACES Pain Intervention, Drug : Medicated Pain Improved by Intervention : Yes Laura Lopez RN - 08/01/2020 0:16 EDT Pain Scale Intensity : 7 March, Laura Buchanan, RN - 08/01/2020 0:16 EDT Image 4 - Images currently included in the form version of this document have not been included in the text rendition version of the form. documented in this encounter Plan of Treatment Not on file documented as of this encounter Visit Diagnoses Not on filedocumented in this encounter Care Teams Punch Press Operator Helper Relationship Specialty Start Date End Date Anusha Alberto PA-C PCP - General Physician Automobile Dealer 10/09/22 Jorge Luis Meléndez MD [address] [place] [id number] Hematology and Oncology 05/05/25 documented as of this encounter
--- OUTSIDE RECORDS SUMMARY | 2025-05-23 09:42 | XMS_ITS | Encounter Summary ---
Author Organization [employer] ([place], [place], [place], [place]) Address [address] [place] [address] Care Team Providers Care Manager Of Corporate Name Role Phone Anusha Alberto PA-C Primary Care Provider Jorge Luis Meléndez MD Unavailable [phone] Encounter Details Date Type Department Care Team (Late st Contact Info) Description 07/31/2020 Transcribed Document [facility] Family Medicine [address] [place] [address] ProviderСветлана MD [address] [place] [address] Social History Tobacco Use Types Packs/Day Years Used Date Smoking Tobacco: Never Assessed Sex and Gender Information Value Date Recorded Sex Assigned at Not on file Legal Sex Male 5:17 PM CDT Gender Identity Not on file Sexual Orientation Not on file documented as of this encounter Miscellaneous Notes * Cerner Conversion Note - Светлана ProviderMD - 07/31/2020 9:43 AM CDT [address] [address] JACKSON BELL :1955 Visit Time:07/31/2020 Your Visit Summary Your Care Team Admitting Physician - ZAIDA MARIA NP-FAM Attending Physician - ZAIDA MARIA NP-FAM Primary Care Physician - JUAN LUIS HERNANDEZ PA Referring Physician - ZAIDA MARIA NP-FAM Your Diagnosis Unspecified cirrhosis of liver, Unspecified cirrhosis of liver Discharge Vitals Temperature 36.3 ??C Heart Rate (Monitored) 74 Respiratory Rate 16 Blood Pressure 159/72 What to do next Instructions From Your Care Team Diet after Discharge: Resume usual diet as tolerated Activity after Discharge: Rest and relax today, No strenuous activity Lifting Restrictions: No heavy lifting over 10 pounds Driving after Discharge: NO DRIVING FOR 24 HRS Showering/Bathing: may shower in 24 hrs NO TUB BATHS Notify Provider of: Redness, drainage, or fever Wound/Incision Care after Discharge: Keep operative site/wound site clean and dry, Follow-Up Appointments Follow Up with ZAIDA MARIA NP-FAM When Within 2 to 3 days Comments SCHEDULED Where: Medications What How Much When Instructions Next Dose acetaminophen (Tylenol 325 mg oral tablet) 2 Tablet(s) Oral Every 4 Hours as needed for for pain as needed acetaminophen-hydrocodone (acetaminophen-HYDROcodone 325 mg-7.5 mg oral tablet) 1 Tablet(s) Oral Every 6 Hours as needed for for pain as needed leuprolide (Lupron Depot 45 mg/ 6 months intramuscular kit) 45 Milligram(s) IntraMuscular Every 6 months as schedu Non Formulary (CBD OIL) 1 Milligram(s) SubLINgual Every Day 07/31 Non Formulary (Non Formulary Medication) 50 Milligram(s) Every Day MILK THISTLE 07/31 Non Formulary (Tumeric) Every Day 07/31 Take your medications faithfully. Do NOT skip medication. Do NOT stop taking medications without the direction of a physician. Carry a list of your medications with you at all times, and take this medication list with you to your first follow up visit. Report any side effects. Avoid herbal remedies unless discussed with your physician. As part of your treatment plan, your physician may have prescribed a limited course of a controlled substance. This medication may be given to help people with moderate or severe pain or for other medical conditions, but there are risks involved with treatment. Common side effects may include nausea, constipation, drowsiness, sweating, itching, dry mouth, and rash. More serious side effects may include cognitive and motor impairment, like problems with thinking, concentrating, alertness, and movement (e.g. slowed reflexes), and driving and operating heavy machinery can be dangerous. It is important for you to talk to your physician if you have these side effects or questions. These controlled substances can produce physical dependence and be habit-forming if taken for an extended period of time, which means that the body has gotten used to them and may experience withdrawal symptoms if they are abruptly stopped. Withdrawal symptoms can include runny nose, sweating, goose bumps, diarrhea, abdominal cramping, rapid heartbeat, difficulty sleeping, and nervousness. Please dispose of unused and medications per your retail pharmacy guidance. Allergies No Known Allergies Immunizations This Visit No Immunizations Found Education Materials Incision Care, Adult An incision is a surgical cut that is made through your skin. Most incisions are closed after surgery. Your incision may be closed with stitches (sutures), sun, skin glue, or adhesive strips. You may need to return to your health care provider to have sutures or usn removed. This may occur several days to several weeks after your surgery. The incision needs to be cared for properly to prevent infection. How to care for your incision Incision care ??? Follow instructions from your health care provider about how to take care of your incision. Make sure you: ? Wash your hands with soap and water before you change the bandage (dressing). If soap and water are not available, use hand director prison. ? Change your dressing as told by your health care provider. ? Leave sutures, skin glue, or adhesive strips in place. These skin closures may need to stay in place for 2 weeks or longer. If adhesive strip edges start to loosen and curl up, you may trim the loose edges. Do not remove adhesive strips completely unless your health care provider tells you to do that. ??? Check your incision area every day for signs of infection. Check for: ? More redness, swelling, or pain. ? More fluid or blood. ? Warmth. ? Pus or a bad smell. ??? Ask your health care provider how to clean the incision. This may include: ? Using mild soap and water. ? Using a clean towel to pat the incision dry after cleaning it. ? Applying a cream or ointment. Do this only as told by your health care provider. ? Covering the incision with a clean dressing. ??? Ask your health care provider when you can leave the incision uncovered. ??? Do not take baths, swim, or use a hot tub until your health care provider approves. Ask your health care provider if you can take showers. You may only be allowed to take sponge baths for bathing. Medicines ??? If you were prescribed an antibiotic medicine, cream, or ointment, take or apply the antibiotic as told by your health care provider. Do not stop taking or applying the antibiotic even if your condition improves. ??? Take ksiw-yww-gqjhgxu and prescription medicines only as told by your health care provider. General instructions ??? Limit movement around your incision to improve healing. ? Avoid straining, lifting, or exercise for the first month, or for as long as told by your health care provider. ? Follow instructions from your health care provider about returning to your normal activities. ? Ask your health care provider what activities are safe. ??? Protect your incision from the sun when you are outside for the first 6 months, or for as long as told by your health care provider. Apply sunscreen around the scar or cover it up. ??? Keep all follow-up visits as told by your health care provider. This is important. Contact a health care provider if: ??? Your have more redness, swelling, or pain around the incision. ??? You have more fluid or blood coming from the incision. ??? Your incision feels warm to the touch. ??? You have pus or a bad smell coming from the incision. ??? You have a fever or shaking chills. ??? You are nauseous or you vomit. ??? You are dizzy. ??? Your sutures or sun come undone. Get help right away if: ??? You have a red streak coming from your incision. ??? Your incision bleeds through the dressing and the bleeding does not stop with gentle pressure. ??? The edges of your incision open up and separate. ??? You have severe pain. ??? You have a rash. ??? You are confused. ??? You faint. ??? You have trouble breathing and a fast heartbeat. This information is not intended to replace advice given to you by your health care provider. Make sure you discuss any questions you have with your health care provider. Document Released: 05/29/2006 Document Revised: 11/11/2019 Document Reviewed: 05/27/2017 [employer] Patient Education ?? 2020 [employer] Moderate Conscious Sedation, Adult, Care After These instructions provide you with information about caring for yourself after your procedure. Your health care provider may also give you more specific instructions. Your treatment has been planned according to current medical practices, but problems sometimes occur. Call your health care provider if you have any problems or questions after your procedure. What can I expect after the procedure? After your procedure, it is common: ??? To feel sleepy for several hours. ??? To feel clumsy and have poor balance for several hours. ??? To have poor judgment for several hours. ??? To vomit if you eat too soon. Follow these instructions at home: For at least 24 hours after the procedure: ??? Do not: ? Participate in activities where you could fall or become injured. ? Drive. ? Use heavy machinery. ? Drink alcohol. ? Take sleeping pills or medicines that cause drowsiness. ? Make important decisions or sign legal documents. ? Take care of children on your own. ??? Rest. Eating and drinking ??? Follow the diet recommended by your health care provider. ??? If you vomit: ? Drink water, juice, or soup when you can drink without vomiting. ? Make sure you have little or no nausea before eating solid foods. General instructions ??? Have a responsible adult stay with you until you are awake and alert. ??? Take ifkr-ofq-ryclcgi and prescription medicines only as told by your health care provider. ??? If you smoke, do not smoke without supervision. ??? Keep all follow-up visits as told by your health care provider. This is important. Contact a health care provider if: ??? You keep feeling nauseous or you keep vomiting. ??? You feel light-headed. ??? You develop a rash. ??? You have a fever. Get help right away if: ??? You have trouble breathing. This information is not intended to replace advice given to you by your health care provider. Make sure you discuss any questions you have with your health care provider. Document Released: 08/30/2014 Document Revised: 10/22/2018 Document Reviewed: 02/28/2017 [employer] Patient Education ?? 2020 [facility] [employer]. Liver Biopsy, Care After These instructions give you information about how to care for yourself after your procedure. Your health care provider may also give you more specific instructions. If you have problems or questions, contact your health care provider. What can I expect after the procedure? After your procedure, it is common to have: ??? Pain and soreness in the area where the biopsy was done. ??? Bruising around the area where the biopsy was done. ??? Sleepiness and fatigue for 1???2 days. Follow these instructions at home: Medicines ??? Take sfyz-kuz-alrsvqb and prescription medicines only as told by your health care provider. ??? If you were prescribed an antibiotic medicine, take it as told by your health care provider. Do not stop taking the antibiotic even if you start to feel better. ??? Do not take medicines such as aspirin and ibuprofen unless your health care provider tells you to take them. These medicines thin your blood and can increase the risk of bleeding. ??? If you are taking prescription pain medicine, take actions to prevent or treat constipation. Your health care provider may recommend that you: ? Drink enough fluid to keep your urine pale yellow. ? Eat foods that are high in fiber, such as fresh fruits and vegetables, whole grains, and beans. ? Limit foods that are high in fat and processed sugars, such as fried or sweet foods. ? Take an ywwb-lqp-gnzobyb or prescription medicine for constipation. Incision care ??? Follow instructions from your health care provider about how to take care of your incision. Make sure you: ? Wash your hands with soap and water before you change your bandage (dressing). If soap and water are not available, use hand director prison. ? Change your dressing as told by your health care provider. ? Leave stitches (sutures), skin glue, or adhesive strips in place. These skin closures may need to stay in place for 2 weeks or longer. If adhesive strip edges start to loosen and curl up, you may trim the loose edges. Do not remove adhesive strips completely unless your health care provider tells you to do that. ??? Check your incision area every day for signs of infection. Check for: ? Redness, swelling, or pain. ? Fluid or blood. ? Warmth. ? Pus or a bad smell. ??? Do not take baths, swim, or use a hot tub until your health care provider says it is okay to do so. Activity ??? Rest at home for 1???2 days, or as directed by your health care provider. ? Avoid sitting for a long time without moving. Get up to take short walks every 1???2 hours. This is important to improve blood flow and breathing. Ask for help if you feel weak or unsteady. ??? Return to your normal activities as told by your health care provider. Ask your health care provider what activities are safe for you. ??? Do not drive or use heavy machinery while taking prescription pain medicine. ??? Do not lift anything that is heavier than 10 lb (4.5 kg), or the limit that your health care provider tells you, until he or she says that it is safe. ??? Do not play contact sports for 2 weeks after the procedure. General instructions ??? Do not drink alcohol in the first week after the procedure. ??? Have someone stay with you for at least 24 hours after the procedure. ??? It is your responsibility to obtain your test results. Ask your health care provider, or the department that is doing the test: ? When will my results be ready? ? How will I get my results? ? What are my treatment options? ? What other tests do I need? ? What are my next steps? Keep all follow-up visits as told by your health care provider. This is important. Contact a health care provider if: ??? You have increased bleeding from an incision, resulting in more than a small spot of blood. ??? You have redness, swelling, or increasing pain in any incisions. ??? You notice a discharge or a bad smell coming from any of your incisions. ??? You have a fever or chills. Get help right away if: ??? You develop swelling, bloating, or pain in your abdomen. ??? You become dizzy or faint. ??? You develop a rash. ??? You have nausea or you vomit. ??? You faint, or you have shortness of breath or difficulty breathing. ??? You develop chest pain. ??? You have problems with your speech or vision. ??? You have trouble with your balance or moving your arms or legs. Summary ??? After the liver biopsy, it is common to have pain, soreness, and bruising in the area, as well as sleepiness and fatigue. ??? Take nblz-kxf-mybfofz and prescription medicines only as told by your health care provider. ??? Follow instructions from your health care provider about how to care for your incision. Check the incision area daily for signs of infection. This information is not intended to replace advice given to you by your health care provider. Make sure you discuss any questions you have with your health care provider. Document Released: 05/29/2006 Document Revised: 01/02/2020 Document Reviewed: 11/19/2018 [employer] Patient Education ?? 2020 [facility] [employer] [facility]. Emergency Awareness and Preventative Care STROKE is an EMERGENCY Every Minute Counts Act FAST and Check for these signs: FACE Does the face look uneven? ARM Does one arm drift down? SPEECH Does their speech sound strange? TIME Call at any sign of stroke Stroke Risk Factors Atrial Fibrillation (irregular heartbeat) Diabetes Family history of stroke Heart Disease Heavy alcohol use High Blood Pressure High Cholesterol Physical inactivity and obesity Smoking Cigarette Smoking The facts are clear, cigarette smoking will shorten your life. Smoking can cause many illnesses along the way. As a healthcare provider, we recommend that you stop smoking. Assistance with quitting is available by contacting 6-758-BCAA-NOW. This is a free resource providing counseling, support, and referral. Or you may contact your personal physician. National Suicide Prevention Lifeline: The National Suicide Prevention Lifeline is a national network of local crisis centers that provides free and confidential emotional support to people in suicidal crisis or emotional distress 24 hours a day, 7 days a week. Don't Wait! Stop a Heart Attack Before it Starts What is a heart attack? A heart attack is damage or to a part of the heart from severely decreased or lack of blood flow to the heart. Over time, arteries can become narrow from the buildup of fat and cholesterol, which is called plaque. The plaque can rupture causing a blood clot to form. When the blood clot forms, the artery can become severely narrowed or completely blocked, causing a heart attack. Heart attack is the leading cause of in the [place]. 85% of muscle damage occurs within the first 2 hours. Delay in the recognition of heart attack symptoms increases the chances of . Know the early symptoms of a heart attack: Nausea Feeling of fullness in chest Jaw Pain Pain that travels down one or both arms Fatigue/being tired Anxiety Back Pain Chest pressure, squeezing, or discomfort Shortness of breath Sweating, or a cold sweat Feeling of impending doom There are unusual signs of a heart attack, too! Women, the elderly, and diabetics may present with atypical symptoms: Fainting/dizziness Weakness Confusion Risk Factors for a Heart Attack Some heart disease risk factors, such as age and family history, cannot be changed. Others, like smoking and lack of exercise, can be changed. Smoking High Cholesterol High Blood Pressure Family History Obesity Age Gender (Males are at higher risk) Lack of Exercise Diabetes Diet Stress Excessive Alcohol Intake If you or someone you know is experiencing the signs and symptoms of a heart attack, DON???T DELAY. Call immediately and seek help. If someone collapses, perform CPR! Do not attempt to drive if you are having symptoms of heart attack. Hands-Only CPR Why Hands-Only CPR? Hands-Only CPR has been shown to be as effective as conventional CPR for cardiac arrests that occur outside of a hospital. Survival depends on immediately receiving CPR from someone nearby. How do you perform Hands-Only CPR? There are two easy steps: Call if you see a teen or adult collapse Push hard and fast in the center of the chest at a beat of 100 beats per minute. Save a life! 4 WAYS TO GET AHEAD OF SEPSIS SEPSIS is a MEDICAL EMERGENCY. Time matters! Infections put you and your family at risk for a life-threatening condition called sepsis. Sepsis is the body's extreme response to an infection. It is life-threatening, and without timely treatment, sepsis can rapidly lead to tissue damage, organ failure, and . Sepsis happens when an infection you already have-in your skin, lungs, urinary tract or somewhere else-triggers a chain reaction throughout your body. 1 PREVENT INFECTIONS Take good care of chronic conditions. Talk to your doctor about getting the recommended vaccines. 2 PRACTICE GOOD HYGIENE Wash your hands frequently. Keep cuts or open sores clean and covered until they are healed. 3 KNOW THE SYMPTOMS Confusion or disorientation Shortness of breath High heart rate Fever, shivering, or feeling very cold Extreme pain or discomfort Clammy or sweaty skin 4 ACT FAST Get medical care IMMEDIATELY if you suspect sepsis or if you have an infection that is not getting better or is getting worse. To learn more about sepsis and how to prevent infections, visit www.cdc.gov/sepsis. Test Results Laboratory or Other Results This Visit (last charted value for your 07/31/2020 visit) Hematology 07/31/2020 7:19 AM WBC: 4.3 K/uL -- Normal range between ( 3.9 and 10.0 ) RBC: 3.11 Million/uL -- Normal range between ( 4.63 and 6.08 ) Hct: 31.3 % -- Normal range between ( 40.1 and 51.0 ) Hgb: 11.2 Gram/dL -- Normal range between ( 13.7 and 17.5 ) Platelet Count: 109 K/uL -- Normal range between ( 163 and 369 ) MCH: 36.0 pg -- Normal range between ( 25.6 and 32.2 ) MCHC: 35.8 Gram/dL -- Normal range between ( 32.3 and 36.5 ) MCV: 100.6 fL -- Normal range between ( 79.0 and 94.8 ) Slide Review: No Eos %: 2.1 % -- Normal range between ( 1.0 and 7.0 ) [place] #: 0.34 K/uL -- Normal range between ( 0.24 and 0.82 ) Eos #: 0.09 K/uL -- Normal range between ( 0.04 and 0.54 ) [place] %: 8.0 % -- Normal range between ( 4.7 and 12.5 ) Baso %: 0.2 % -- Normal range between ( 0.0 and 1.0 ) Baso #: 0.01 K/uL -- Normal range between ( 0.01 and 0.08 ) RDW: 15.5 % -- Normal range between ( 11.6 and 14.4 ) Neut %: 70.3 % -- Normal range between ( 34.0 and 71.0 ) Neut #: 3.00 K/uL -- Normal range between ( 1.56 and 6.13 ) Lymph %: 19.2 % -- Normal range between ( 19.3 and 53.0 ) Lymph #: 0.82 K/uL -- Normal range between ( 1.18 and 3.74 ) MPV: 8.9 fL -- Normal range between ( 9.4 and 12.4 ) IG#: 0 x10(3)/uL IG%: 0 % -- Normal range between ( 0 and 1 ) Microbiology 07/27/2020 12:00 PM Novel Coronavirus 2019: Not Detected Coagulation 07/31/2020 7:19 AM INR: 1.1 -- Normal range between ( 0.9 and 1.1 ) PT: 11.3 Second(s) -- Normal range between ( 9.6 and 11.5 ) Patient Name:JACKSON BELL I have received and understand this information and was given the opportunity to ask questions. Patient/Tail Board Man Name: Patient/Tail Board Man Signature: Relationship to Patient: Clinician/Hospital Tail Board Man Signature: Date: Electronically signed by Efren, [facility] Conversion Senior Software Qa Engineer Cerner at 03/11/2023 10:47 AM CDT documented in this encounter Plan of Treatment Not on file documented as of this encounter Visit Diagnoses Not on filedocumented in this encounter Care Teams Manager Of Corporate Relationship Specialty Start Date End Date Anusha Alberto PA-C PCP - General Physician Supervisor [employer] 10/09/22 Jorge Luis Meléndez MD [address] [facility] [address] [place] [id number] Hematology and Oncology 05/05/25 documented as of this encounter
--- OUTSIDE RECORDS SUMMARY | 2025-05-23 09:42 | XMS_ITS | Encounter Summary ---
Author Organization [employer] [place] ([place], [place], [place], [place]) Address [address] [place] [address] Care Team Providers Care Survey Coordinator Name Role Phone Anusha Alberto PA-C Primary Care Provider Jorge Luis Meléndez MD Unavailable [phone] Encounter Details Date Type Department Care Team (Late st Contact Info) Description 08/01/2020 Transcribed Document [facility] [place] [facility] Family Medicine [address] [place] [address] ProviderСветлана MD [address] [place], [place] [address] Social History Tobacco Use Types Packs/Day Years Used Date Smoking Tobacco: Never Assessed Sex and Gender Information Value Date Recorded Sex Assigned at Not on file Legal Sex Male 5:17 PM CDT Gender Identity Not on file Sexual Orientation Not on file documented as of this encounter Miscellaneous Notes * [employer]ner Conversion Note - Светлана ProviderMD - 08/01/2020 2:52 AM CDT Electronically signed by [facility] Conversion Pipe Stem Aligner Cerner at 03/11/2023 10:25 AM CDT documented in this encounter Plan of Treatment Not on file documented as of this encounter Visit Diagnoses Not on filedocumented in this encounter Care Teams Survey Coordinator Relationship Specialty Start Date End Date Anusha Alberto PA-C PCP - General Physician Cryptologic Technician Technical 10/09/22 Jorge Luis Meléndez MD [address] [place] [address] Hematology and Oncology 05/05/25 documented as of this encounter
--- OUTSIDE RECORDS SUMMARY | 2025-05-23 09:42 | XMS_ITS | Encounter Summary ---
Author Organization [employer] ([place], [place], [place], [place]) Address [address] [place] [address] Care Team Providers Care Health And Social Care Teacher Name Role Phone Anusha Alberto PA-C Primary Care Provider Jorge Luis Meléndez MD Unavailable [phone] Encounter Details Date Type Department Care Team (Late st Contact Info) Description 07/31/2020 Transcribed Document [facility] [place] [address] [place] [address] ProviderСветлана MD [address] [place] [address] Social History Tobacco Use Types Packs/Day Years Used Date Smoking Tobacco: Never Assessed Sex and Gender Information Value Date Recorded Sex Assigned at Not on file Legal Sex Male 5:17 PM CDT Gender Identity Not on file Sexual Orientation Not on file documented as of this encounter Miscellaneous Notes * Cerner Conversion Note - Светална ProviderMD - 07/31/2020 9:32 AM CDT Patient: JACKSON BELL Age: 65 years Sex: Male : 1955 Associated Diagnoses: None Author: HELIO TERAN PA-C Pre-OP/Procedure Diagnosis: Cirrhosis Post-OP/Procedure Diagnosis: same Procedure Performed: CT guided core biopsy Procedural MD: Wade Arce MD [employer] Officer: Helio Teran PA-C Sedation: IV versed and fentanyl Findings: Technically successful biopsy Complications: No significant bleeding. EBL: Minimal Specimen(s) Removed: Two 18g core biopsies. Pathology is pending. Full report to follow. documented in this encounter Plan of Treatment Not on file documented as of this encounter Visit Diagnoses Not on filedocumented in this encounter Care Teams Health And Social Care Teacher Relationship Specialty Start Date End Date Anusha Alberto PA-C PCP - General Physician [employer] Officer 10/09/22 Jorge Luis Meléndez MD [address] [place] [id number] Hematology and Oncology 05/05/25 documented as of this encounter
--- OUTSIDE RECORDS SUMMARY | 2025-05-23 09:42 | XMS_ITS | Encounter Summary ---
Author Organization [employer] ([place], [place], [place], [place]) Address [address] [place] [address] Care Team Providers Care Airplane Patrol Pilot Name Role Phone Anusha Alberto PA-C Primary Care Provider Jorge Luis Meléndez MD Unavailable [phone] Encounter Details Date Type Department Care Team (Late st Contact Info) Description 07/31/2020 Transcribed Document [facility] [place] [address] [place] [address] Светлана Ledesma MD [address] [place] [address] Social History Tobacco Use Types Packs/Day Years Used Date Smoking Tobacco: Never Assessed Sex and Gender Information Value Date Recorded Sex Assigned at Not on file Legal Sex Male 5:17 PM CDT Gender Identity Not on file Sexual Orientation Not on file documented as of this encounter Miscellaneous Notes * Cerner Conversion Note - Светлана Ledesma MD - 07/31/2020 7:39 AM CDT Patient Education Materials Follows: Incision Care, Adult An incision is a surgical cut that is made through your skin. Most incisions are closed after surgery. Your incision may be closed with stitches (sutures), sun, skin glue, or adhesive strips. You may need to return to your health care provider to have sutures or sun removed. This may occur several days to [...] and water are not available, use hand client experience manager. ? Change your dressing as told by [...] even if your condition improves. ??? Take yyjr-dva-ywuuorj and prescription medicines only as told by [...] 05/29/2006 Document Revised: 11/11/2019 Document Reviewed: 05/27/2017 [employer] Patient Education ? 2020 [employer] Moderate Conscious Sedation, Adult, Care After These [...] you are awake and alert. ??? Take fjvh-zzg-xdjxgau and prescription medicines only as told by [...] 08/30/2014 Document Revised: 10/22/2018 Document Reviewed: 02/28/2017 [employer] Patient Education ? 2020 [employer]. Liver Biopsy, Care After These instructions give [...] was done. ??? Sleepiness and fatigue for 1?2 days. Follow these instructions at home: Medicines ??? Take uujc-rmq-oqcvmrq and prescription medicines only as told by [...] fried or sweet foods. ? Take an lzey-hxq-nwnnlic or prescription medicine for constipation. Incision care ??? Follow instructions from your health care provider about how to take care of your incision. Make sure you: ? Wash your hands with soap and water before you change your bandage (dressing). If soap and water are not available, use hand client experience manager. ? Change your dressing as told by [...] so. Activity ??? Rest at home for 1?2 days, or as directed by your health care provider. ? Avoid sitting for a long time without moving. Get up to take short walks every 1?2 hours. This is important to improve blood [...] well as sleepiness and fatigue. ??? Take gjvw-wvo-kictcte and prescription medicines only as told by [...] 05/29/2006 Document Revised: 01/02/2020 Document Reviewed: 11/19/2018 [employer] Patient Education ? 2020 [employer] documented in this encounter Plan of Treatment Not on file documented as of this encounter Visit Diagnoses Not on filedocumented in this encounter Care Teams Airplane Patrol Pilot Relationship Specialty Start Date End Date Anusha Alberto PA-C PCP - General Physician Natural Resource Officer 10/09/22 Jorge Luis Meléndez MD [address] [id number] Hematology and Oncology 05/05/25 documented as of this encounter
--- OUTSIDE RECORDS SUMMARY | 2025-05-23 09:42 | XMS_ITS | Encounter Summary ---
Author Organization [employer] ([place], [place], [place], [place]) Address [address] [place] [address] Care Team Providers Care Public Relations Supervisor Name Role Phone Anusha Alberto PA-C Primary Care Provider Jorge Luis Meléndez MD Unavailable [phone] Encounter Details Date Type Department Care Team (Late st Contact Info) Description 07/31/2020 Transcribed Document [facility] [place] [address] [place] [address] ProviderСветлана MD [address] [place] [address] Social History Tobacco Use Types Packs/Day Years Used Date Smoking Tobacco: Never Assessed Sex and Gender Information Value Date Recorded Sex Assigned at Not on file Legal Sex Male 5:17 PM CDT Gender Identity Not on file Sexual Orientation Not on file documented as of this encounter Miscellaneous Notes * Cerner Conversion Note - Светлана ProviderMD - 07/31/2020 8:31 PM CDT [place] Suicide Severity Rating Scale (C-SSRS) Entered On: 07/31/2020 23:37 EDT Performed On: 07/31/2020 23:37 EDT by Laura Lopez RN [place] Suicide Severity Rating Scale (C-SSRS) CSSRS Past Month Wish to be : No CSSRS Past Month Suicidal Thoughts : No CSSRS Lifetime Suicide Behavior : No Suicide Severity Rating Score : 0 Suicide Severity Rating : No Additional Care Required at this time Laura Lopez RN - 07/31/2020 23:37 EDT documented in this encounter Plan of Treatment Not on file documented as of this encounter Visit Diagnoses Not on filedocumented in this encounter Care Teams Public Relations Supervisor Relationship Specialty Start Date End Date Anusha Alberto PA-C PCP - General Physician Load Dispatcher 10/09/22 Jorge Luis Meléndez MD [address] [place] [id number] Hematology and Oncology 05/05/25 documented as of this encounter
--- OUTSIDE RECORDS SUMMARY | 2025-05-23 09:42 | XMS_ITS | Continuity of Care Document ---
Author Organization [facility] DERMATOLOGY [facility] Address [address] [place] [address] Care Team Providers Care Service Advocate Contact Name Role Phone MIKIE AGUERO II Referring Provider SINAN FLOWER JR General Surgeon SHAUNNA MUSTAFA Paramedic Rn ELIEL GAINES Primary Care Provider [phone] Assessment No assessment recorded. Plan of Treatment Reminders Order Date Submit Date Provider Last Modified By Organization Details Last Modified Time Details Appointments RECHECK 2024 10:00A M SRIDHAR MINA MD Not available Not available Not available Lab surgical pathology study 2024 025 [facility], [address] [place] [address], [id number], 05/17/2025 11:29:51 Referral None recorded. Procedures None recorded. Surgeries None recorded. Imaging None recorded. Medication Orders None recorded. Patient TargetsNo targets recorded. Patient Instructions Encounter Date Encounter Id Patient Instructions Last Modified By Organization Details Last Modified Time 05/16/2025 [id number] Risks/Benefits/O p tions/Side Effects of diagnosis and treatment discussed. UV protection and signs of skin cancer discussed [email or web address] Not available 05/15/2025 13:28:10 Reason for Referral None Reported. 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 56109199721 9101 Active 2018 [facility] 3 11:15:50 Male urinary stress incontine nce 654856265 Active 2020 [facility] 3 11:15:50 Disease of liver 602696930 [facility] 2022 [facility] 3 11:15:50 Lumbar radiculop athy 747870905 Active 2022 ELIEL GAINES, DO [address] [place], [address] [place] [address] 4 12:27:30 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 ELIEL GAINES, DO [address] [place], [address] , [facility] 4 12:18:53 Palpitati ons 76754273 Active 2023 ELIEL GAINES, DO [address] [place], [address] , [facility] 4 12:17:59 Paroxysma l supravent ricular tachycard ia 78924767 Active 2023 ELIEL GAINES, DO [address] [place], [address] [place] [address] 4 12:18:35 Chronic hepatitis C 775756374 Active 2023 successfu l tx with Harvoni 2015 ELIEL GAINES, DO [address] [place], [address] , [facility] 4 12:20:43 Cirrhosis of liver 07405306 Active 2023 fibrosure 07/24/24 F4S13 (cirrhosi s, mild steatosis , severe LACEY) sees MITCH Burroughs at [facility] but due to chronical ly elevated bili, otherwise would be 9. ELIEL GAINES, DO [address] [place], [address] , [facility] 4 12:25:55 Gastro-es ophageal reflux disease with esophagit is 194792452 Active 2023 ELIEL GAINES, DO [address] [place], [address] , [facility] 4 12:26:04 Spinal stenosis of lumbar region 09361061 Active 2023 ELEIL GAINES, DO [address] [place], [address] , [facility] 4 12:27:13 Acquired thrombocy topenia 98457007 Active Not Available [employer] 4 12:29:01 Increased frequency of urination 318362701 Active 2015 From Automated Load;Prov ider: Jeff Arrieta;S tatus: Active Triciatorri Santo [facility] 3 11:15:50 Dysuria 28227994 Active 2015 From Automated Load;Prov ider: Jeff Arrieta;S tatus: Active Tricia Santo [facility] 3 11:15:50 Chronic prostatit is 70448096 Active 2015 From Automated Load;Prov ider: Jeff Arrieta;S tatus: Active Tricia Santo [facility] 3 11:15:50 Acute prostatit is 73964736 Active 2015 From Automated Load;Prov ider: Jeff Arrieta;S tatus: Active Tricia Gal [facility] 3 11:15:50 Problem Notes None recorded. Procedures Surgical History Date Name Laterality Status Provider Name and Address Organization Details Recorded Time 05/16 Biopsy Ear Lesion completed Kami Luna [place] - [facility] 5 11:13:38 05/16 Destruction Premalignant Lesion(s) completed Kami Luna [place] - [facility] 5 11:17:31 03/16 Lupron Administration completed Carie Lee [place] - [facility] 5 11:06:08 01/09 Laryngoscopy Flex cancelled Danyelle Parrish [place] - [facility] 5 16:09:39 10/27 Laryngoscopy Flex completed Juventino Roy [place] - [facility] 4 11:11:51 07/21 Lupron Administration completed Cady Chavez [place] - [facility] 4 09:28:28 12/31 Lupron Administration completed Carie Lee [place] [facility] 4 09:46:31 06/15 Lupron Administration completed Cady Chavez [place] [facility] 3 13:49:22 12/03 Destruction Premalignant Lesion(s) completed LISA GILLILAND [employer] [address] [place], [address], [facility] 3 11:57:34 11/06 Eligard Administration completed Kelsey Orlando [facility] [place] 2 11:23:09 05/08 Eligard Administration completed Emmy Whitehead [facility] [place] 2 12:18:42 10/31 Eligard Administration completed Emmy Whitehead [facility] [place] 1 12:11:44 09/18 Destruction Premalignant Lesion(s) completed SIOBHAN ORLANDO [employer] [address] [place], [address], [facility] 1 10:48:14 09/18 Destruction BN Lesions completed SIOBHAN ORLANDO [employer] [address] [place], [address], [facility] 1 10:49:27 04/29 Eligard Administration completed Bre Cha [facility] 1 11:36:44 04/29 DXA Normal completed BLU URBINA MD [address] [place], [address], [facility] 1 12:24:01 11/28 Destruction Premalignant Lesion(s) completed Susana Mcclelland [facility] 1 10:53:36 10/26 Eligard Administration completed Murelene Migel [facility] 0 11:18:52 07/24 biopsy of lung completed Murelene Migel [facility] 0 11:17:39 04/26 Eligard Administration completed Deseriee [place] [facility] 0 11:32:08 10/24 Eligard Administration completed Emmy Whitehead [facility] 9 11:40:54 05/12 Eligard Administration completed Gloria Courtney [facility] 9 11:37:51 11/11 Eligard Administration completed Emmy Whitehead [facility] 8 12:18:17 10/21 Interpretation completed FARIBA NAIR PA-C [address] [place], [address], [facility] 8 20:38:12 10/07 Destruction Premalignant Lesion(s) completed Trish Barron [facility] 8 16:27:07 10/05 Electromyography (EMG) with Nerve Conduction Study (NCV) completed Janelle Oconnor (Nicky) [facility] 8 17:02:52 04/29 Eligard Administration completed Deseriee [place] [facility] 8 12:30:18 10/28 Eligard Administration completed Deseriee [place] [facility] 7 10:57:33 09/17 Prostate Surgery completed Murelene Migel [facility] 7 13:05:31 09/03 Destruction Premalignant Lesion(s) completed Tali Blake [facility] 7 10:59:38 07/09 Biopsy Prostate, Needle w/Transrectal US completed JEFF ARRIETA MD [address] [place], [address], [facility] 7 10:50:59 06/11 Post Void Residual; Ultrasound completed Tracy Stark [facility] 7 10:32:40 Carpal tunnel surgery completed Rachel Mora ede [facility] 7 14:48:21 [facility] 13:54[facility]12 operative esophagogastroduodenoscopy completed [facility] 8 13:54:35 colonoscopy completed [facility] 8 13:54:41 Imaging Results None recorded. Procedure Notes None recorded. Medical Equipment None Reported. Allergies Allergen ID Allergen Name Allergen Category Reaction Reaction Severity Criticality Documentation Date Start Date Code Code System Note Provider Name and Address Organization Details Recorded Time 780635 Tylenol medicatio n Not available Not available Not available 10/17/20162006 3 RxNorm Comme nt: hepat itis years ago;C reate d By: Mikala Covarrubias;Cre ated Date: 007 6:57: 14 PM; Mayitogatitomaurilio Aliceaalice fernandez [facility] 7 13:03:27 089016 Cipro medicatio n other Not available Not available 06/11/201753912 3 RxNorm JEFF ARRIETA MD [address] [place], [address], [facility] 7 11:20:46 215023 ciproflox acin medicatio n Not available Not available Not available 07/30/20232021 2551 RxNorm Other react ions and sever ities : 'Naus ea And Vomit ing - Moder ate'. Tricia Santo [facility] 3 11:15:49 Medications Name Sig Start Date Stop Date Status Note LastModified by Organization Details LastModified Time Trimix (papaveri ne--phent alom-alpr ost 30mg-1mg- 10mcg/ml intracave rnosal soln) use as directed 10/26 completed Not Available Not Available Not Available Trimix (papaveri ne--phent alom-alpr ost 30mg-1mg- 10mcg/ml intracave rnosal soln) use as directed 12/03 completed Not Available Not Available Not Available Prescript ion - Prior Authoriza tion Request 10/26 completed Not Available Not Available Not Available cyclobenz aprine 10 mg tablet 02/10 completed Not Available Not Available Not Available amoxicill in 500 mg capsule 10/26 completed Not Available Not Available Not Available bicalutam terry 50 mg tablet Take 1 tablet every day by oral route. 02/10 completed Not Available Not Available Not Available nitrofura ntoin macrocrys hiwot 50 mg capsule Take 1 capsule every day by oral route for 30 days. 09/16 completed Not Available Not Available Not Available Lidocaine Viscous 2 % mucosal solution SWISH AND SPIT 10 ML EVERY 4 HOURS NEEDED FOR MOUTH PAIN 07/21 completed Not Available Not Available Not Available ampicilli n 500 mg capsule Take 1 capsule twice a day by oral route for 10 days. 04/29 completed Not Available Not Available Not Available methylphe nidate 10 mg tablet 02/10 completed Not Available Not Available Not Available hydrocodo ne 5 mg-acetam inophen 325 mg tablet 02/10 completed Not Available Not Available Not Available ondansetr on HCl 8 mg tablet 10/26 completed Not Available Not Available Not Available betametha sone, augmented 0.05 % topical cream APPLY A THIN LAYER TO THE AFFECTED AREA(S) ON LEGS BID X 2 WEEKS PRN FLARES 10/26 completed Not Available Not Available Not Available sulfameth oxazole 800 mg-trimet hoprim 160 mg tablet Take 1 tablet every 12 hours by oral route for 10 days. 04/29 completed Not Available Not Available Not Available hydrocodo ne 10 mg-acetam inophen 325 mg tablet TAKE ONE TABLET BY MOUTH EVERY 8 HOURS -- MUST LAST 30 DAYS PER MD (FEBRUARY 2022 RX) active Not Available Not Available No t Available carvedilo l 3.125 mg tablet active Not Available Not Available No t Available ondansetr on 8 mg disintegr ating tablet 03/16 completed Not Available Not Available Not Available hydrocodo ne 7.5 mg-acetam inophen 325 mg tablet Take 1 tablet every 6 hours by oral route. 02/12 completed Not Available Not Available Not Available pantopraz ole 40 mg tablet,de layed release active Not Available Not Available Not Available oseltamiv ir 75 mg capsule 02/10 completed Not Available Not Available Not Available chlorprom azine 25 mg tablet 02/10 completed Not Available Not Available Not Available buspirone 10 mg tablet TAKE ONE TABLET BY MOUTH TWICE DAILY. 12/03 completed Not Available Not Available Not Available omeprazol e 20 mg capsule,d elayed release 10/26 completed Not Available Not Available Not Available folic acid 1 mg tablet 10/26 completed Not Available Not Available Not Available gabapenti n 100 mg capsule 2 x week active Not Available Not Available Not Available metoprolo l succinate ER 25 mg tablet,ex tended release 24 hr TAKE 1/2 TABLET BY MOUTH AT BEDTIME active Not Available Not Available No t Available Viagra 100 mg tablet Daily 07/30 completed Duration : 30 days;Danilo quency: daily;Al t Frequenc y: prn;Medi cation Descript ion: sildenaf il; Dosage:1 /2-1; Route:or al; refills: 5; Quantity :3 tablet Not Available Not Available Not Available polyethyl nasim glycol 3350 17 gram/dose oral powder 07/30 completed Not Available Not Available Not Available oxycodone -acetamin ophen 7.5 mg-325 mg tablet Take 1 tablet every 6 hours by oral route for 10 days. 04/29 completed Not Available Not Available Not Available brompheni ramine-ps eudoephed rine-DM 2 mg-30 mg-10 mg/5 mL oral syrup 09/16 completed Not Available Not Available Not Available ondansetr on 4 mg disintegr ating tablet 07/22 completed Not Available Not Available Not Available cefdinir 300 mg capsule TAKE 1 CAPSULE BY MOUTH EVERY 12 HOURS 12/03 completed Not Available Not Available Not Available fluticaso ne propionat e 50 mcg/actua tion nasal spray,alejandra pension Daily 02/10 completed Not Available Not Available Not Available Enulose 10 gram/15 mL oral solution 3 x week active Not Available Not Available No t Available amoxicill in 875 mg-potass ium clavulana te 125 mg tablet 07/21 completed Not Available Not Available Not Available nitrofura ntoin monohydra te/macroc rystals 100 mg capsule Take 1 capsule every 12 hours by oral route. 10/18 completed Not Available Not Available Not Available sildenafi l (pulmonar y hypertens ion) 20 mg tablet 02/10 completed Pharmacy 614 Not Available Not Available Not Available [place] TID active Not Available Not Availa ble Not Available milk thistle active Not Available Not Available Not Available echinacea 07/21 completed Not Available Not Available Not Available Lupron Depot q6 months active Not Available Not Available No t Available folic acid 09/22 completed Not Available Not Available Not Available Advil 07/22 completed Medicati on Descript ion: ibuprofe n; Route:or al; refills: 0 Not Available Not Available Not Available metoprolo l succinate 02/12 completed Not Available Not Available Not Available multivita min Daily 07/30 completed Frequenc y: daily;Me dication Descript ion: multivit vang; Dosage:1 ; refills: 0 Not Available Not Available Not Available Vaqta (PF) 50 unit/mL intramusc ular syringe 10/26 completed Not Available Not Available Not Available Myrbetriq 50 mg tablet,ex tended release Take 1 tablet every day by oral route. 10/26 completed Not Available Not Available Not Available Harvoni 90 mg-400 mg tablet As Directed 07/22 completed Frequenc y: as direct.; Medicati on Descript ion: ledipasv ir-sofos buvir; Dosage:a s directed ; Route:or al; refills: 0 Not Available Not Available Not Available turmeric 10/18 completed Not Available Not Available Not Available Vitals None Recorded Social History Question Answer Notes LastModified by Organizat ion Details LastModified Time Tobacco Smoking Status [facility] 07/22/2017 11:31:40 What Is Your Level Of Caffeine Consumption? Moderate Information not available 09/17/2021 How Much Tobacco Do You Chew? None [email or web address] Information not available 02/10/2019 Education 2 Year College Information not available 11/11/2018 Difficulty With Sexual Activities No Information no t available 11/11/2018 Difficulty Toileting No Information not available 11/11/2018 Ever Taken Anyone Else's Medication For Your Pain? No Information not available 11/11/2018 Ever Used Your Pain Medications Not As Prescribed Or For Reasons Other Than Pain? No Information not available 11/11/2018 Ever Given Your Prescribed Pain Medication To Someone Else? No Information not available 11/11/2018 Last Time You Used Tobacco 20 Years Ago Information not available 11/11/2018 Last Time You Used Marijuana Never Information not available 11/11/2018 Last Time You Used Cocaine Never Information not available 11/11/2018 Last Time You Used Methamphetamine Never Information not available 11/11/2018 Last Time You Used Herion Never Information not available 11/11/2018 Last Time You Used Pain Pills Daily Information not available 11/11/2018 Last Time You Used Other Substances Never Information not available 11/11/2018 Marital Status [email or web address] Informatio n not available 07/30/2017 What Was The Date Of Your Most Recent Tobacco Screening? 09/17/2021 [email or web address] Information n ot available 09/17/2021 How Much Tobacco Do You Smoke? No Information not available 10/24/2019 Has Tobacco Cessation Counseling Been Provided? No [email or web address] Information not available 10/31/2021 How Many Years Have You Smoked Tobacco? 20 [email or web address] Information not available 07/22/2017 Have You Recently Traveled Abroad? No Information not available 10/31/2021 Sex: Male Functional Status Question Answer Note LastModified by Organizat ion Details LastModified Time Do you use any illicit or recreational drugs? No [email or web address] Information not available 09/17/2021 Do you or have you ever used any other forms of tobacco or nicotine? No [email or web address] Information not available 09/17/2021 What is your level of alcohol consumption? Moderate Patient reports drinking 2 beers one to two times per week. Information not available 11/11/2018 Are you currently employed? Yes Information not available 11/11/2018 What is your occupation? works for [employer] Information not available 10/06/2017 Do you have difficulty dressing or bathing? No Information not available 11/11/2018 What is your exercise level? Occasional Information not available 11/11/2018 Mental Status None recorded. Family History Relationship Description Onset Age of this Age Resolved Age Notes LastModified by Organization Details LastModified Time Father Family history of malignant neoplasm [email or web address] Not available 07/30 14:18:48 Notes:Rhematic Fever-Mother ( at young age) Older Sister- Colon Cancer HTN 6. Father - Massive stroke, Throat Cancer, Heart Problems Medical History Condition Response Allergies/Hayfever Y Heart Problems Y Coronary Artery Disease N Other Blood Transfusion N Alzheimer's N Thyroid Problems N GI Problems Y COPD N Anemia Y Constipation N Anxiety Disorder N Arthritis Y Polyps Y Blood Clot N Cancer Y Asthma N Bladder or Kidney Problems N Reflux/GERD Y Sleep Apnea N Hepatitis Y Liver Disease Y Headaches N Chronic Ear Infections N Hypertension N Chicken Pox Y Osteoporosis N Immunizations Vaccine Type Date Status Note Provider Nam e and Address Organization Details Recorded Time influenza, unspecified formulation 4 completed Lelia Pastor [facility] 10/18/2024 13:53:42 SARS-COV-2 (COVID-19) vaccine, UNSPECIFIED 4 completed Lelia Pastor [facility] 10/18/2024 13:53:55 Influenza, high-dose, quadrivalent, PF 0 completed Sivan Peoples [facility] 08/28/2020 12:26:33 Influenza, high-dose, quadrivalent, PF 1 completed Alex Han [facility] 08/20/2021 12:06:34 COVID-19, mRNA, LNP-S, PF, 100 mcg/0.5mL dose or 50 mcg/0.25mL dose 1 completed Not Available [facility] 07/30/2023 11:10:12 COVID-19, mRNA, LNP-S, PF, 100 mcg/0.5mL dose or 50 mcg/0.25mL dose 1 completed Not Available [facility] 07/30/2023 11:10:12 COVID-19, mRNA, LNP-S, PF, 100 mcg/0.5mL dose or 50 mcg/0.25mL dose 1 completed Not Available [facility] 07/30/2023 11:10:12 Past Encounters Encounter ID Performer Location Encounter Start Date Encounter Closed Date Diagnosis/Indication Diagnosis SNOMED-CT Code Diagnosis ICD10 Code Diagnosis Note [id number] LISA GILLILAND APRN [facility] [address] [place] [address] 05/16/2025 10:30:50 05/16/2025 14:57:23 History of squamous cell carcinoma of skin 052124568 Z85.828 NO EVIDENCE OF RECURRENCE RECOMMEND ANNUAL FSE OTC SUNSCREEN AND UV PROTECTION RECOMMENDE D DAILY Solar lentiginosis 81635 2007 L81.4 RECOMMEND SUN PROTECTIVE CLOTHING AND EQUATE SPORT SUNSCREEN AND CERAVE AM SUNSCREEN LOTION OTC DAILYDISCU SSED RISKS INHERENT TO CHEMICAL SUNSCREENS INCLUDING PHOTOALLER GIC, PHOTOTOXIC , ALLERGIC CONTACT AND IRRITANT CONTACT DERMATITIS .BENIGN APPEARANCE , PT REASSURED & ADVISED TO RTC WITH ANY CHANGES Raised anne orrheic keratosis 3097516982 05091 L82.1 BENIGN APPEARANCE , PT REASSURED Multiple b enign melanocytic nevi 746060249 D22.9 BENIGN APPEARANCE - MONITOR RETURN TO OFFICE WITH CHANGE Generalize d essential telangiectasia 490216229 I78.1 BENIGN APPEARANCE - REASSURED PT Actinic keratosis 107813 007 L57.0 DISCUSSED TX OPTIONSCRY O X 11 RISKS OF CRYO SURGERY DISCUSSED; POST OP CARE INSTRUCTIO NS PROVIDED. VERBAL CONSENT TO TREAT GIVEN BY PATIENT. RECHECK IF PERSISTING Multiple skin tags 89704 7009 L91.8 BENIGN APPEARANCE Seborrheic dermatitis 50 646256 L21.9 CLEARDISCU SSED TREATMENT OPTIONSPT DEFERS FOR NOW - NOT REALLY BOTHERSOME Asteatosis cutis 5027220 0 L85.3 CLEAR TODAYIN PAST RECOMMEND THICKER MOISTURIZI NG CREAM SUCH CERAVE DAILY Cirrhosis of liver 30793 007 K74.60 SEES HEMATOLOGY TO MANAGE Neoplasm o f uncertain behavior of skin 72913610 D48.5 R/O BCC LOCATION: L [facility] LAR FOLD GEL FOAM/PRESS URE BANDAGE SHAVE BX TAKEN TODAY SEE PROCEDURE NOTE CONSENT SIGNED WOUND CARE INSTRUCTIO NS PROVIDED PHOTO TAKEN FOLLOW UP PER PATH Purpuric rash 504363821 D69.2 BENIGN APPEARANCE , PT REASSURED Health Concerns Section Related Observation LastModified by Organization Detai ls LastModified Time None Recorded Concern Status LastModified by Organization Details LastModified Time None Recorded Payers Encounter Date Sequence Insurance Name Policy Number Policy Ayala Covered Member ID Ayala Member ID Guarantor Name 05/16/2025 1 [place] Homero Bell [id number] Homero Bell 05/16/2025 2 THRIVENT INDEPENDENT (MEDICARE SUPPLEMENT) Homero Bell [id number] Homero Bell Notes Date Note Type Note Provider Name and Address Organization Details Recorded Time 05/16/2025 text/html ESTABLISHED PT - HX SCC 1) PT DESIRES A WAIST UP EXAM ONLY 2) PT C/O MULTIPLE NEW LESIONS OF CONCERN Denies any other new, changing, or bleeding lesions, or other rashes. Patient feels well today and in a good mood. No family history of melanoma. LISA GILLILAND, [employer]SE [employer] [address], [place], [address], [facility] 05/16/2025 12:26:26
--- OUTSIDE RECORDS SUMMARY | 2025-05-23 09:43 | XMS_ITS | Encounter Summary ---
Author Organization [employer] ([place], [place], [place], [place]) Address [address] [place] [address] Care Team Providers Care Virtualization Engineer Name Role Phone Anusha Alberto PA-C Primary Care Provider Jorge Luis Meléndez MD Unavailable [phone] Encounter Details Date Type Department Care Team (Late st Contact Info) Description 10/13/2019 Transcribed Document [facility] Family Medicine [address] [place] [address] ProviderСветлана MD [address] [place] [id number] Social History Tobacco Use Types Packs/Day Years Used Date Smoking Tobacco: Never Assessed Sex and Gender Information Value Date Recorded Sex Assigned at Not on file Legal Sex Male 5:17 PM CDT Gender Identity Not on file Sexual Orientation Not on file documented as of this encounter Miscellaneous Notes * Cerner Conversion Note - Historical ProviderMD - 10/13/2019 11:44 AM 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 [address] [address] Hematology and Oncology 05/05/25 documented as of this encounter
--- OUTSIDE RECORDS SUMMARY | 2025-05-23 09:43 | XMS_ITS | Encounter Summary ---
Author Organization [employer] ([place], [place], [place], [place]) Address [address] [place] [address] Care Team Providers Care Hunting Sales Associate Name Role Phone Anusha Alberto PA-C Primary Care Provider Jorge Luis Meléndez MD Unavailable [phone] Encounter Details Date Type Department Care Team (Late st Contact Info) Description 08/01/2020 Transcribed Document [facility] Family Medicine [address] [place] [address] ProviderСветлана MD [address] [place] [address] Social History Tobacco Use Types Packs/Day Years Used Date Smoking Tobacco: Never Assessed Sex and Gender Information Value Date Recorded Sex Assigned at Not on file Legal Sex Male 5:17 PM CDT Gender Identity Not on file Sexual Orientation Not on file documented as of this encounter Miscellaneous Notes * Cerner Conversion Note - Светлана ProviderMD - 08/01/2020 2:57 AM CDT ED Discharge Entered On: 08/01/2020 2:57 EDT Performed On: 08/01/2020 2:57 EDT by Laura Lopez RN Discharge Process Patient Disposition : AMA/Elope/LWBS Personal Belongings With Patient : Yes Patient Education Completed : Yes Teaching Evaluation : Verbalizes understanding IV Discontinued : Yes Nursing Documentation Completed : Yes Laura Lopez RN - 08/01/2020 2:57 EDT LWBS/Elopement/AMA Patient leaves after medical screening : Seen Asked to Sign AMA Form : Form signed Provider Notified : Yes Provider Notified Name : GLORIA CORDERO MD Provider Notified Time : 08/01/2020 2:57 EDT Laura Lopez RN - 08/01/2020 2:57 EDT Electronically signed by [facility] Conversion Low Altitude Air Defense Gunner Cerner at 03/11/2023 10:46 AM CDT documented in this encounter Plan of Treatment Not on file documented as of this encounter Visit Diagnoses Not on filedocumented in this encounter Care Teams Hunting Sales Associate Relationship Specialty Start Date End Date Anusha Alberto PA-C PCP - General Physician Transformer Stock Clerk 10/09/22 Jorge Luis Meléndez MD [address] [place] [phone] Hematology and Oncology 05/05/25 documented as of this encounter
--- OUTSIDE RECORDS SUMMARY | 2025-05-23 09:43 | XMS_ITS | Encounter Summary ---
Author Organization [employer] ([place], [place], [place], [place]) Address [address] [place] [place] [address] Care Team Providers Care Fast Food Attendant Name Role Phone Anusha Alberto PA-C Primary Care Provider Jorge Luis Meléndez MD Unavailable [phone] Encounter Details Date Type Department Care Team (Late st Contact Info) Description 08/01/2020 Transcribed Document [facility] [place] [address] [place] [address] ProviderСветлана MD [address] [place], [place] [address] Social History Tobacco Use Types Packs/Day Years Used Date Smoking Tobacco: Never Assessed Sex and Gender Information Value Date Recorded Sex Assigned at Not on file Legal Sex Male 5:17 PM CDT Gender Identity Not on file Sexual Orientation Not on file documented as of this encounter Miscellaneous Notes * Cerner Conversion Note - Светлана Ledesma MD - 08/01/2020 4:14 PM CDT Patient Resource Center Entered On: 08/01/2020 16:15 EDT Performed On: 08/01/2020 16:14 EDT by Radha Sow SCHEDULER Patient Resource Center Provider Status : No Assigned Primary Care Established Provider Name : No Patient Phone Number : [phone] Patient Insurance Type : Medicare Source of Referral : Requirements not met Location of Patient : Home Primary Care Scheduled : No Specialty Care Scheduled : No Qualify for Diabetes and/or Nutrition Referral : No Wound Care Appointment Made : No Why Patient Visited ED- Specialty spent : Other How Patient Arrived at ED : Other Primary Language : Greek Patient Resource Center Comment : Requirements not met. Follow Up Needed : No Radha Sow, LINE INSTALLER TROLLEY - 08/01/2020 16:14 EDT documented in this encounter Plan of Treatment Not on file documented as of this encounter Visit Diagnoses Not on filedocumented in this encounter Care Teams Fast Food Attendant Relationship Specialty Start Date End Date Anusha Alberto PA-C PCP - General Physician Shipping Services Sales Representative 10/09/22 Jorge Luis Meléndez MD [address] [place] [phone] Hematology and Oncology 05/05/25 documented as of this encounter
--- OUTSIDE RECORDS SUMMARY | 2025-05-23 09:43 | XMS_ITS | Encounter Summary ---
Author Organization Healthcare Address [address] [place] [address] Care Team Providers Care Chief Radiology Name Role Phone Mohsen Harris MD Primary Care Provider + Encounter Details Date Type Department Care Team (Late st Contact Info) Description 05/16/2025 Orders Only [facility] [address] [place] [phone] Lin Burns, FORM MAKER [address] [place], [place] [id number] Social History Tobacco Use Types Packs/Day Years Used Date Smoking Tobacco: Former Alcohol Use Standard Drinks/Week Comments Yes 0 (1 standard drink = 0.6 oz pure alcohol) Alcoholic Drinks/day: Acute alcohol use Sex and Gender Information Value Date Recorded Sex Assigned at Not on file Legal Sex Male 6:20 PM EDT Gender Identity Not on file Sexual Orientation Not on file documented as of this encounter Plan of Treatment Not on file documented as of this encounter Procedures Procedure Name Priority Date/Time Associated Diagnosis Comments SURGICAL PATHOLOGY EXAM Routine 05/16/2025 11:13 AM EDT documented in this encounter Results * (ABNORMAL) Surgical Pathology Exam (05/16/2025 11:13 AM EDT) External Surgical Pathology SEE BELOW(A) [facility] Comment: Surgical Pathology Report NAME:JACKSON BELL PATH: [id number] DATE of : 1955 Copy to: Diagnosis: Left postauricular fold: Basal cell carcinoma, nodular type; incompletely excised. SOURCE OF SPECIMEN: SKIN BIOPSY, LEFT POSTAURICULAR FOLD CLINICAL INFORMATION: R/O BCC D 48.5 Gross Description: Patient's name and date of verified. Received in formalin labeled with the patient's name and designated left postauricular fold is a shave biopsy of skin (0.8 x 0.5 x 0.1 cm). The epidermal surface is pale-hugo and hugo, variegated, roughened, and faintly nodular. The margin is inked blue. The specimen is trisected and entirely submitted in one cassette labeled A1. SB 05/16/2025 03:54 PM Microscopic Description: A microscopic examination has been performed and the result(s) are as noted above. <Sign Out Signature> SERENE JAMIL MD Signed Out Date: 05/17/2025 11:29 Page 1 of 1 05/16/2025 11:1 3 AM EDT 05/16/2025 2:16 PM EDT Lin Burns APRN LAB PATHOLOGY ORDERABLES Final Result [facility] [address] [place] [address], documented in this encounter Visit Diagnoses Not on filedocumented in this encounter Care Teams Chief Radiology Relationship Specialty Start Date End Date Mohsen Harris MD [address] [place] [address] PCP - General 07/30/21 documented as of this encounter
--- OUTSIDE RECORDS SUMMARY | 2025-05-23 09:43 | XMS_ITS | CCD ---
Author Name Interface, [id number] lity Address [address] [facility] [address] Oncology an d Hematology Address [address] [place] [address] Care Team Providers Care Outer Diameter Grinder Name Role Phone Brittaney FAIRCHILD, Sam Unavailable Unavailable Reason for Visit Social History
--- OUTSIDE RECORDS SUMMARY | 2025-05-23 09:43 | XMS_ITS | Encounter Summary ---
Author Organization [employer] ([place], [place], [place], [place]) Address [address] [place] [address] Care Team Providers Care Electrical Intern Name Role Phone Anusha Alberto PA-C Primary Care Provider Jorge Luis Meléndez MD Unavailable [phone] Encounter Details Date Type Department Care Team (Late st Contact Info) Description 10/13/2019 Transcribed Document [facility] Family Medicine [address] [place] [address] ProviderСветлана MD [address] [place], [place] [address] Social History Tobacco Use Types Packs/Day Years Used Date Smoking Tobacco: Never Assessed Sex and Gender Information Value Date Recorded Sex Assigned at Not on file Legal Sex Male 5:17 PM CDT Gender Identity Not on file Sexual Orientation Not on file documented as of this encounter Miscellaneous Notes * Cerner Conversion Note - Светлана ProviderMD - 10/13/2019 5:08 AM NEWS SPECIALIST ED Triage Entered On: 10/13/2019 5:20 EST Performed On: 10/13/2019 5:17 EST by Janie Diaz RN ED Triage Across the Room Triage Date/Time : 10/13/2019 5:17 EST Chief Complaint : Pt from home with c/o SOA and pressure in his chest. He states, I keep getting all these air bubbles and I can't hardly lay flat. Janie Diaz RN - 10/13/2019 5:17 EST DCP GENERIC CODE Tracking Acuity : 3 - Urgent Tracking Group : [facility] ED Janie Diaz RN - 10/13/2019 5:17 EST Mode of Arrival : Ambulatory Transported to ED by : Private vehicle To Room Via : Wheelchair Accompanied By : Unaccompanied ED Vital Signs : Document Height & Weight : Document ED Allergies : Document ED Reason for Visit : Document Devil Dog Needed : No Janie Diaz RN - 10/13/2019 5:17 EST Infectious Disease History Infectious Disease History : None, Hepatitis C, Hepatitis Non A, B, C Fever/Chills Last 48 Hours : No Travel To Regions with Travel Advisories : No Travel Outside [place] Within Last 30 Days : No Contact With Traveler to Advisory Region : No Tuberculosis Symptoms : None Janie Diaz RN - 10/13/2019 5:17 EST Vital Signs ED Temperature Source : Oral Temperature Mode : Fahrenheit Temperature, Fahrenheit : 98.0 Deg F Clinical Temperature, C : 36.7 Deg C Oxygen Therapy Mode : Room air Peripheral Pulse Rate : 99 bpm Respiratory Rate : 16 Breaths/Min Blood Pressure Location : Arm, right upper Blood Pressure Source : Non-Invasive BP Device Systolic Blood Pressure : 185 mmHg (HI) Diastolic Blood Pressure : 95 mmHg (HI) Oxygen Saturation : 100 % Janie Diaz RN - 10/13/2019 5:17 EST Allergy (As Of: 10/13/2019 05:20:16 EST) Allergies (Active) No Known Allergies Estimated Onset Date: Unspecified ; Created By: ALTHEA REID RPh; Reaction Status: Active ; Substance: No Known Allergies ; Type: Allergy ; Updated By: ALTHEA REID RPh; Reviewed Date: 10/13/2019 5:19 EST Diagnosis Control ED (As Of: 10/13/2019 05:20:16 EST) Problems(Active) Anemia (SNOMED CT :027948167 ) Name of Problem: Anemia ; Recorder: LUZ MARINA MCCOY RN; Confirmation: Confirmed ; Classification: Patient Stated ; Code: 985909893 ; Contributor System: SafetyPay ; Last Updated: 02/20/2015 7:30 EDT ; Life Cycle Date: 02/20/2015 ; Life Cycle Status: Active ; Vocabulary: SNOMED CT Arthritis (SNOMED CT :9847823 ) Name of Problem: Arthritis ; Recorder: LUZ MARINA MCCOY RN; Confirmation: Confirmed ; Classification: Patient Stated ; Code: 7396184 ; Contributor System: PowerChart ; Last Updated: 02/20/2015 7:29 EDT ; Life Cycle Date: 02/20/2015 ; Life Cycle Status: Active ; Vocabulary: SNOMED CT Back pain (SNOMED CT :284803055 ) Name of Problem: Back pain ; Recorder: LUZ MARINA MCCOY RN; Confirmation: Confirmed ; Classification: Patient Stated ; Code: 973286289 ; Contributor System: PowerChart ; Last Updated: 02/20/2015 7:29 EDT ; Life Cycle Date: 02/20/2015 ; Life Cycle Status: Active ; Vocabulary: SNOMED CT Cardiac arrhythmia (SNOMED CT :0340262712 ) Name of Problem: Cardiac arrhythmia ; Recorder: LUZ MARINA MCCOY RN; Confirmation: Confirmed ; Classification: Patient Stated ; Code: 3943157199 ; Contributor System: PowerChart ; Last Updated: 02/20/2015 7:27 EDT ; Life Cycle Date: 02/20/2015 ; Life Cycle Status: Active ; Vocabulary: SNOMED CT Disorder of prostate (SNOMED CT :92760281 ) Name of Problem: Disorder of prostate ; Recorder: LAN FAJARDO RN; Confirmation: Confirmed ; Classification: Patient Stated ; Code: 99255297 ; Contributor System: PowerChart ; Last Updated: 05/04/2014 19:28 EDT ; Life Cycle Date: 10/28/2013 ; Life Cycle Status: Active ; Vocabulary: SNOMED CT Fibrosis of liver (SNOMED CT :095018730 ) Name of Problem: Fibrosis of liver ; Recorder: LAN FAJARDO RN; Confirmation: Confirmed ; Classification: Patient Stated ; Code: 138410390 ; Contributor System: PowerChart ; Last Updated: 05/04/2014 19:28 EDT ; Life Cycle Date: 10/28/2013 ; Life Cycle Status: Active ; Vocabulary: SNOMED CT GERD - Gastro-esophageal reflux disease (SNOMED CT :9971876689 ) Name of Problem: GERD - Gastro-esophageal reflux disease ; Recorder: LUZ MARINA MCCOY RN; Confirmation: Confirmed ; Classification: Patient Stated ; Code: 8472482768 ; Contributor System: PowerChart ; Last Updated: 02/20/2015 7:28 EDT ; Life Cycle Date: 02/20/2015 ; Life Cycle Status: Active ; Vocabulary: SNOMED CT Hepatitis (SNOMED CT :923913505 ) Name of Problem: Hepatitis ; Recorder: LAN FAJARDO RN; Confirmation: Confirmed ; Classification: Patient Stated ; Code: 341156778 ; Contributor System: CelsiasChart ; Last Updated: 05/04/2014 19:28 EDT ; Life Cycle Date: 10/28/2013 ; Life Cycle Status: Active ; Vocabulary: SNOMED CT Hiatal hernia (SNOMED CT :958715501 ) Name of Problem: Hiatal hernia ; Recorder: LUZ MARINA MCCOY RN; Confirmation: Confirmed ; Classification: Patient Stated ; Code: 815912642 ; Contributor System: PowerChart ; Last Updated: 02/20/2015 7:28 EDT ; Life Cycle Date: 02/20/2015 ; Life Cycle Status: Active ; Vocabulary: SNOMED CT High blood pressure (SNOMED CT :02853053 ) Name of Problem: High blood pressure ; Recorder: LAN FAJARDO RN; Confirmation: Confirmed ; Classification: Patient Stated ; Code: 19404554 ; Contributor System: PowerChart ; Last Updated: 05/04/2014 19:28 EDT ; Life Cycle Date: 10/28/2013 ; Life Cycle Status: Active ; Vocabulary: SNOMED CT Irritable bowel syndrome (SNOMED CT :19244982 ) Name of Problem: Irritable bowel syndrome ; Recorder: LUZ MARINA MCCOY RN; Confirmation: Confirmed ; Classification: Patient Stated ; Code: 68564663 ; Contributor System: PowerChart ; Last Updated: 02/20/2015 7:28 EDT ; Life Cycle Date: 02/20/2015 ; Life Cycle Status: Active ; Vocabulary: SNOMED CT Murmur (SNOMED CT :076923876 ) Name of Problem: Murmur ; Recorder: LUZ MARINA MCCOY RN; Confirmation: Confirmed ; Classification: Patient Stated ; Code: 197276696 ; Contributor System: PowerChart ; Last Updated: 02/20/2015 7:27 EDT ; Life Cycle Date: 02/20/2015 ; Life Cycle Status: Active ; Vocabulary: SNOMED CT Peripheral vascular disease (SNOMED CT :2631576296 ) Name of Problem: Peripheral vascular disease ; Recorder: LUZ MARINA MCCOY RN; Confirmation: Confirmed ; Classification: Patient Stated ; Code: 1126752280 ; Contributor System: SafetyPay ; Last Updated: 02/20/2015 7:27 EDT ; Life Cycle Date: 02/20/2015 ; Life Cycle Status: Active ; Vocabulary: SNOMED CT Restless legs syndrome (SNOMED CT :23555352 ) Name of Problem: Restless legs syndrome ; Recorder: LUZ MARINA MCCOY RN; Confirmation: Confirmed ; Classification: Patient Stated ; Code: 99416624 ; Contributor System: SafetyPay ; Last Updated: 02/20/2015 7:29 EDT ; Life Cycle Date: 02/20/2015 ; Life Cycle Status: Active ; Vocabulary: SNOMED CT Sinusitis (SNOMED CT :76222927 ) Name of Problem: Sinusitis ; Recorder: LUZ MARINA MCCOY RN; Confirmation: Confirmed ; Classification: Patient Stated ; Code: 71539281 ; Contributor System: SafetyPay ; Last Updated: 02/20/2015 7:26 EDT ; Life Cycle Date: 02/20/2015 ; Life Cycle Status: Active ; Vocabulary: SNOMED CT Diagnoses(Active) SOA - Shortness of Air Date: 10/13/2019 ; Diagnosis Type: Reason For Visit ; Confirmation: Complaint of ; Clinical Dx: SOA - Shortness of Air ; Classification: Medical ; Clinical Service: Non-Specified ; Code: PNED ; Probability: 0 ; Diagnosis Code: [id number] ED Height and Weight Height Source : Stated Height Entry Format : [place] Height, Feet : 6 ft(Converted to: 183 cm, 72 Inch) Height, Inches : 0 Inch(Converted to: 0 ft 0 Inch, 0.00 cm) Clinical Height : 182.88 cm Weight Source, ED : Critical estimated dosing weight Weight Entry Format : [place] Weight, Pounds : 175 lb Clinical Dosing Weight : 79.55 kg Body Surface Area (BSA) : 2.01 m2 Body Mass Index : 23.8 kg/m2 [place] Body Weight (IBW) : 76.59 kg Janie Diaz RN - 10/13/2019 5:17 EST documented in this encounter Plan of Treatment Not on file documented as of this encounter Visit Diagnoses Not on filedocumented in this encounter Care Teams Electrical Intern Relationship Specialty Start Date End Date Anusha Alberto PA-C PCP - General Physician Licensed Veterinary Technician 10/09/22 Jorge Luis Meléndez MD [address] [address] Hematology and Oncology 05/05/25 documented as of this encounter
--- OUTSIDE RECORDS SUMMARY | 2025-05-23 09:43 | XMS_ITS | Clinical Summary ---
Author Organization Healthcare Address [address] [place] [address] Care Team Providers Care Electro Mechanical Designer Name Role Phone Mohsen Harris MD Primary Care Provider + Encounters Date Type Department Care Team Description 05/16/2025 Orders Only [facility] at [address] [phone] Lin Burns, TWITCHELL OPERATOR 03/31/2025 Ancillary Procedure [facility] at [address] [phone] Mikie Armas MD from Last 3 Months Family History Medical History Relation Name Comments Diabetes Father Cancer Other 1 Heart disease Other 2 Stroke Other 3 Relation Name Status Comments Father Other 1 Other 2 Other 3 Social History Tobacco Use Types Packs/Day Years Used Date Smoking Tobacco: Former Alcohol Use Standard Drinks/Week Comments Yes 0 (1 standard drink = 0.6 oz pure alcohol) Alcoholic Drinks/day: Acute alcohol use Sex and Gender Information Value Date Recorded Sex Assigned at Not on file Legal Sex Male 6:20 PM EDT Gender Identity Not on file Sexual Orientation Not on file Last Filed Vital Signs Vital Sign Reading Time Taken Comments Blood Pressure 123/75 06/08/2018 8:24 AM EDT Pulse 65 06/08/2018 8:24 AM EDT Temperature 36.7 C (98 F) 06/08/2018 8:24 AM EDT Respiratory Rate - - Oxygen Saturation - - Inhaled Oxygen Concentration - - Weight 81.9 kg (180 lb 7.9 oz) 06/08/2018 8:24 A M EDT Height 182.9 cm (6') 07/30/2021 10:34 AM EDT Body Mass Index 24.48 06/08/2018 8:24 AM EDT Plan of Treatment Health Maintenance Due Date Last Done Comments [facility]-Depression Screening 1955 [facility]-Infant/Child/Adol SDOH Screenings 1955 [facility]- SDOH Screenings 1972 [facility]-Adult SDOH Screenings 1972 [facility]-DTaP,Tdap,and Td Vaccines (1 - Tdap) 1973 CT Colonography 1999 Colonoscopy 1999 FIT-DNA 1999 FIT 1999 FOBT 1999 Sigmoidoscopy 1999 [facility]-Colorectal Cancer Screening 1999 [facility]-Pneumococcal Vaccine: 50+ Years (1 of 1 - PCV) 2004 [facility]-Zoster Vaccines (1 of 2) 2004 [id number] Vaccine ( - season) 2024 02/20/2021, 01/25/2021, 01/17/2021 [facility]-Influenza Vaccine (Season Ended) 2025 08/20/2021, 08/28/2020, 09/01/2018, Additional history exists [facility]-RSV Vaccine: 60+ Years or (1 - 1-dose 75+ series) 2029 [facility]-Hepatitis A Vaccines Aged Out 10/01/2018 No longer eligible based on patient's age to complete this topic HPV Vaccines Aged Out No longer eligi ble based on patient's age to complete this topic [facility]-HIB Vaccines Aged Out No longer e ligible based on patient's age to complete this topic [facility]-IPV Vaccines Aged Out No longer e ligible based on patient's age to complete this topic [facility]-Rotavirus Vaccines Aged Out No lo nger eligible based on patient's age to complete this topic Procedures Procedure Name Priority Date/Time Associated Diagnosis Comments SURGICAL PATHOLOGY EXAM Routine 05/16/2025 11:13 AM EDT XR LUMBAR SPINE 2 OR 3 VIEWS 03/31/2025 9:21 AM EDT from Last 3 Months Results * (ABNORMAL) Surgical Pathology Exam (05/16/2025 11:13 AM EDT) External Surgical Pathology SEE BELOW(A) [facility] Comment: Surgical Pathology Report NAME:JACKSON BELL PATH: [id number] DATE of : 1955 Copy to: Diagnosis: [...] Burns APRN LAB PATHOLOGY ORDERABLES Final Result Performing Organization Address City/State/[facility] Co de Phone Number [facility] [address] [place] [address], * XR Lumbar Spine 2 or 3 Views (03/31/2025 9:21 AM EDT) Anatomical Region Laterality Modality Spine, L-spine Digital Radiogra phy 03/31/2025 9:21 AM EDT Narrative 03/31/2025 9:50 [place] [address] Patient Name: JACKSON BELL Patient : 1955 Patient Ordering Provider: MIKIE ARMAS II EXAM DATE: 03/31/2025 EXAM: XR LUMBAR AP/LAT CLINICAL INFORMATION: Back pain. IMAGES PROVIDED: AP, lateral and coned down views of the lumbar spine. COMPARISON: None. FINDINGS: Mild scoliosis convex right of the thoracolumbar spine. No subluxation. Diffuse degenerative endplate spurring is present. No radiographic evidence of injury is noted. IMPRESSION: Mild to moderate diffuse DDD. Interpreted By: Rehan Bonilla MD Procedure Note Rehan Bonilla MD - 03/31/2025 [place] [address] Patient Name: JACKSON BELL Patient : 1955 Patient Ordering Provider: MIKIE ARMAS II EXAM DATE: 03/31/2025 EXAM: XR LUMBAR AP/LAT CLINICAL INFORMATION: Back pain. IMAGES PROVIDED: AP, lateral and coned down views of the lumbar spine. COMPARISON: None. FINDINGS: Mild scoliosis convex right of the thoracolumbar spine. No subluxation. Diffuse degenerative endplate spurring is present. No radiographic evidence of injury is noted. IMPRESSION: Mild to moderate diffuse DDD. Interpreted By: Rehan Bonilla MD Mikie Armas MD IMG XR PROCEDURES Final Re sult from Last 3 Months Insurance MEDICARE GENERIC COMMERCIAL Care Teams Electro Mechanical Designer Relationship Specialty Start Date End Date Mohsen Harris MD [address] [id number] PCP - General 07/30/21
--- OUTSIDE RECORDS SUMMARY | 2025-05-23 09:43 | XMS_ITS | Encounter Summary ---
Author Organization [employer] ([place], [place], [place], [place]) Address [address] [place] [address] Care Team Providers Care Communications Designer Name Role Phone Anusha Alberto PA-C Primary Care Provider Jorge Luis Meléndez MD Unavailable [phone] Encounter Details Date Type Department Care Team (Latest Contact Info) Description 05/09/2025 Travel Social History Tobacco Use Types Packs/Day Years [...] Date Stanislav rded Speak language other than [place]orese at home Not on file 12/11/2023 Want [...] on filedocumented in this encounter Care Teams Communications Designer Relationship Specialty Start Date End Date Anusha Alberto PA-C PCP - General Physician Railroad Signal And Switch Operator 10/09/22 Jorge Luis Meléndez MD [address] [address] Hematology and Oncology 05/05/25 documented as of this encounter
--- OUTSIDE RECORDS SUMMARY | 2025-05-23 09:43 | XMS_ITS | Clinical Summary ---
Author Organization [employer] ([place], [place], [place], [place]) Address [address] [place] [address] Care Team Providers Care French Lecturer Name Role Phone Anusha Alberto PA-C Primary Care Provider Jorge Luis Meléndez MD Unavailable [phone] Allergies Active Allergy Reactions Criticality Noted Date Comments Ciprofloxacin Nausea And Vomiting Medium 10/09/2022 Medications cannabidioL (EPIDIOLEX) 100 mg/mL Soln solution Take by mouth. Activ e HYDROcodone-tucker taminophen (NORCO 7.5-325) 7.5-325 mg per tablet Take 1 tablet by mouth. Active leuprolide acetate, 6 month, (ELIGARD) 45 mg injection Inject subcutaneously. Active milk thistle, bulk, 100 % Powd Take 250 mg by mouth. Active turmeric, bulk, 100 % Powd Take 100 mg by mouth. Active gabapentin (NEURONTIN) 100 MG capsule Take 1 capsule (100 mg total) by mouth 3 (three) times daily. Active metoprolol succinate (TOPROL-XL) 25 MG 24 hr tablet TAKE ONE TABLET BY MOUTH EVERY DAY 30 tablet 11 4 Active fluticasone propionate (FLONASE) 50 mcg/actuation nasal spray fluticasone 50 mcg/actuation nasal spray,suspension Active Enulose 10 gram/15 mL solution Take 30 mLs (20 g total) by mouth. 4 Active omeprazole (PriLOSEC) 20 MG capsule Take 1 capsule (20 mg total) by mouth daily. Active Active Problems Problem Noted Date Diagnosed Date Paroxysmal supraventricular tachycardia 10/08/20 21 Dyspnea on exertion 03/19/2021 Palpitations 03/19/2021 Pysag-Hmlbtwpcs-Ijcgx (WPW) pattern 03/19/2021 Malignant neoplasm of prostate 09/15/2017 Encounters Date Type Department Care Team Description 05/09/2025 11:30 AM EDT Office Visit [facility] [address] [place] [address] Jorge Luis Meléndez MD Malignant neoplasm of prostate (HCC) (Primary Dx) 05/09/2025 Clinic Visit [facility] [address] [place] [address] Jorge Luis Meléndez MD 05/09/2025 Travel from Last 3 Months Family History Medical History Relation Name Comments No Known Problem Brother Throat cancer Father No Known Problem Maternal Aunt No Known Problem Maternal Grandfather No Known Problem Maternal Grandmother No Known Problem Maternal Uncle No Known Problem Mother No Known Problem Paternal Aunt No Known Problem Paternal Grandfather No Known Problem Paternal Grandmother No Known Problem Paternal Uncle Liver cancer Sister Relation Name Status Comments Brother Father Maternal Aunt Maternal Grandfather Maternal Grandmother Maternal Uncle Mother Paternal Aunt Paternal Grandfather Paternal Grandmother Paternal Uncle Sister Social History Tobacco Use Types Packs/Day Years [...] Date Stanislav rded Speak language other than Ethiopian at home Not on file 12/11/2023 Want [...] Mass Index 24.28 05/09/2025 12:16 PM EDT Plan of Treatment Health Maintenance Due Date Last Done Comments Medicare Initial AWV [id number] CT Colonography 1954 Colonoscopy 1954 Colorectal Cancer Screening 1954 FOBT/FIT 1954 Fit-DNA (Cologuard) 1954 Sigmoidoscopy 1954 Hepatitis C Screening 1972 DTAP/TDAP/TD VACCINES (1 - Tdap) 1973 Pneumococcal 50+ years (1 of 1 - PCV) 2004 Shingles Vaccine (Zoster) (1 of 2) 2004 Respiratory Syncytial Virus (RSV) Adult or (1 - Risk 60-74 years 1-dose series) 2014 Falls Risk Screening 11/23/2024 COVID-19 VACCINE (2023-2 5 season) 2025 09/07/2024, 09/18/2022, 06/14/2022, Additional history exists Influenza Vaccine (Season Ended) 2025 08/20/2021, 08/28/2020, 09/01/2018, Additional history exists Tobacco Cessation Counseling and Screening (12+) 08/23/2025 08/23/2024 Depression Screening (12+) 05/09/2026 05/09/2025 Abdominal Aortic Aneurysm (A AA) Screen Completed 08/01/2020, 12/02/2019 Procedures Procedure Name Priority Date/Time Associated Diagnosis Comments CT ABDOMEN/PELVIS WITH IV CONTRAST STAT 08/01/2020 12:34 AM EDT from Last 3 Months or Most Recently Relevant to Health Maintenance Results * CT ABDOMEN/PELVIS WITH IV CONTRAST (08/01/2020 12:34 AM EDT) Anatomical Region Laterality Modality Abdomen, Pelvis Computed Tomogra phy 08/01/2020 12:3 4 AM EDT Narrative 08/01/2020 2:[address] SCAN OF THE ABDOMEN AND PELVIS WITH CONTRAST HISTORY: Abdominal pain, status post liver biopsy. COMPARISON: December 02, 2019. PROCEDURE: The patient was injected with IV contrast. Axial images were obtained from the lung bases to the pubic symphysis by computed tomography. This study was performed with techniques to keep radiation doses as low as reasonably achievable, (ALARA). Individualized dose reduction techniques using automated exposure control or adjustment of mA and/or kV according to the patient size were employed. FINDINGS: ABDOMEN: The lung bases are clear. The heart is normal in size. The liver is diffusely fatty infiltrated. There is no focal lesion. The gallbladder is absent. The spleen is enlarged measuring 18.5 cm in axial dimension. No adrenal mass is present. The pancreas is normal. The kidneys are within normal limits. The aorta is normal in caliber. There is no free fluid or adenopathy. The abdominal GI tract soft tissue abnormality. There is no evidence of small bowel obstruction. PELVIS: The appendix is normal. The patient is status post prostatectomy. The urinary bladder is unremarkable.There is a small fluid collection along the left pelvic sidewall, which measures 3 cm and previously measured 3.5 cm. This could represent an evolving seroma or lymphocele. There is a small amount of free fluid in the pelvis. There is no lymphadenopathy. The pelvic GI tract acute abnormality. There is no acute osseous abnormality. IMPRESSION: 1. Fatty liver and splenic vein. 2. Interval decrease in size of left pelvic sidewall fluid collection. 3. Small amount of free fluid within the pelvis. Images reviewed, interpreted, and dictated by Dr. Gail Velasquez. Transcribed by Annie Peguero PA-C. I have personally viewed, interpreted and dictated the examination. I have read and agree with the above final transcribed report. Procedure Note Gail Velasquez MD - 03/10/2023 CT SCAN OF THE ABDOMEN AND PELVIS WITH CONTRAST HISTORY: Abdominal pain, status post liver biopsy. COMPARISON: December 02, 2019. PROCEDURE: The patient was injected with IV contrast. Axial images were obtained from the lung bases to the pubic symphysis by computed tomography. This study was performed with techniques to keep radiation doses as low as reasonably achievable, (ALARA). Individualized dose reduction techniques using automated exposure control or adjustment of mA and/or kV according to the patient size were employed. FINDINGS: ABDOMEN: The lung bases are clear. The heart is normal in size. The liver is diffusely fatty infiltrated. There is no focal lesion. The gallbladder is absent. The spleen is enlarged measuring 18.5 cm in axial dimension. No adrenal mass is present. The pancreas is normal. The kidneys are within normal limits. The aorta is normal in caliber. There is no free fluid or adenopathy. The abdominal GI tract soft tissue abnormality. There is no evidence of small bowel obstruction. PELVIS: The appendix is normal. The patient is status post prostatectomy. The urinary bladder is unremarkable.There is a small fluid collection along the left pelvic sidewall, which measures 3 cm and previously measured 3.5 cm. This could represent an evolving seroma or lymphocele. There is a small amount of free fluid in the pelvis. There is no lymphadenopathy. The pelvic GI tract acute abnormality. There is no acute osseous abnormality. IMPRESSION: 1. Fatty liver and splenic vein. 2. Interval decrease in size of left pelvic sidewall fluid collection. 3. Small amount of free fluid within the pelvis. Images reviewed, interpreted, and dictated by Dr. Gail Velasquez. Transcribed by Annie Peguero PA-C. I have personally viewed, interpreted and dictated the examination. I have read and agree with the above final transcribed report. 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
--- OUTSIDE RECORDS SUMMARY | 2025-05-23 09:43 | XMS_ITS | Referral Summary ---
Author Organization [employer] ([place], [place], [place], [place]) Address [address] [place] [address] Care Team Providers Care Director Critical Care Name Role Phone Anusha Alberto PA-C Primary Care Provider Jorge Luis Meléndez MD Unavailable [phone] Encounters Date Type Department Care Team Description 05/09/2025 Clinic Visit [facility] [address] [place] [address] Jorge Luis Meléndez MD 05/09/2025 Travel 05/09/2025 11:30 AM EDT Office Visit [facility] [address] [place] [address] Jorge Luis Meléndez MD Malignant neoplasm of prostate (HCC) (Primary Dx) from Last 3 Months Allergies Active Allergy Reactions Criticality Noted Date [...] BY MOUTH EVERY DAY 30 tablet 11 Active fluticasone propionate (FLONASE) 50 mcg/actuation nasal spray fluticasone 50 mcg/actuation nasal spray,suspension Active Enulose 10 gram/15 mL solution Take 30 mLs (20 g total) by mouth. Active omeprazole (PriLOSEC) 20 MG capsule Take 1 capsule (20 mg total) by mouth daily. Active Active Problems Problem Noted Date Diagnosed Date Paroxysmal supraventricular tachycardia 10/08/20 Dyspnea on exertion 03/19/2021 Palpitations 03/19/2021 Sxceh-Eejwcvmav-Unldn (WPW) pattern 03/19/2021 Malignant neoplasm of prostate 09/15/2017 Social History Tobacco Use Types Packs/Day Years [...] Date Stanislav rded Speak language other than Turkmen at home Not on file 12/11/2023 Want [...] 05/09/2025 12:16 PM EDT Plan of Treatment Not on file Procedures Procedure Name Priority Date/Time Associated Diagnosis [...] above final transcribed report. 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
--- OUTSIDE RECORDS SUMMARY | 2025-05-23 09:43 | XMS_ITS | Encounter Summary ---
Author Organization [employer] ([place], [place], [place], [place]) Address [address] [place] [address] Care Team Providers Care Student Financial Services Counselor Name Role Phone Anusha Alberto PA-C Primary Care Provider Jorge Luis Meléndez MD Unavailable [phone] Reason for Referral * Ultrasound (Routine) - Closed Specialty Diagnoses / Procedures Referred By Coty jenkins Referred To Contact Diagnoses Hepatic cirrhosis, unspecified hepatic cirrhosis type, unspecified whether ascites present (HCC) Procedures US abdomen limited Robyn Cox APRN [address] [address] Phone: tel: fax: Referral ID Status Reason Start Date Expiration Date Visits Re quested Visits Authorized [id number] Closed 12/11/2022 06/09/2023 1 1 Encounter Details Date Type Department Care Team (Late st Contact Info) Description 12/11/2022 Outside Orders [facility] Central Scheduling [address] [place] [address] Robyn Cox APRN [id number] [id number] Hepatic cirrhosis, unspecified hepatic cirrhosis type, unspecified whether ascites present (HCC) (Primary Dx) Social History Tobacco Use Types Packs/Day Years Used Date Smoking Tobacco: Never Smokeless Tobacco: Never Alcohol Use Standard Drinks/Week Comments Not Currently 0 (1 standard drink = 0.6 oz pur e alcohol) Sex and Gender Information Value Date Recorded Sex Assigned at Not on file Legal Sex Male 5:17 PM CDT Gender Identity Not on file Sexual Orientation Not on file documented as of this encounter Plan of Treatment Not on file documented as of this encounter Results * US abdomen limited (01/21/2023 9:59 AM EST) Anatomical Region Laterality Modality Abdomen Ultrasound 01/21/2023 12:3 0 PM EST Impressions 01/21/2023 12:41 PM EST Fatty infiltration of the liver. Images reviewed, interpreted, and dictated by Dr. Osmin Nash. Transcribed by Sonam Strauss PA-C. Narrative 01/21/2023 12:41 PM EST RIGHT UPPER QUADRANT ULTRASOUND HISTORY: Right upper quadrant pain. COMPARISON: None. PROCEDURE: Ultrasound images of the right upper quadrant were obtained. FINDINGS: The liver parenchyma is fatty infiltrated. there is no focal abnormality. The gallbladder is surgically absent. No evidence of ductal dilatation is identified. Limited images of the pancreas are obscured by bowel gas. Limited images of the right kidney are unremarkable. Procedure Note Osmin Nash MD - 01/21/2023 RIGHT UPPER QUADRANT ULTRASOUND HISTORY: Right upper quadrant pain. COMPARISON: None. PROCEDURE: Ultrasound images of the right upper quadrant were obtained. FINDINGS: The liver parenchyma is fatty infiltrated. there is no focal abnormality. The gallbladder is surgically absent. No evidence of ductal dilatation is identified. Limited images of the pancreas are obscured by bowel gas. Limited images of the right kidney are unremarkable. IMPRESSION: Fatty infiltration of the liver. Images reviewed, interpreted, and dictated by Dr. Osmin Nash. Transcribed by Sonam Strauss PA-C. us Robyn Stump REFUND CLERK IMG US ORDERABLES Final Resu lt documented in this encounter Visit Diagnoses Diagnosis Hepatic cirrhosis, unspecified hepatic cirrhosis type, unspecified whether ascites present (HCC)- Primary Hepatic cirrhosis, unspecified hepatic cirrhosis type, unspecified whether ascites present (HCC) documented in this encounter Care Teams Student Financial Services Counselor Relationship Specialty Start Date End Date Anusha Alberto PA-C PCP - General Physician Lab Support Technician 10/09/22 Jorge Luis Meléndez MD [facility] [address] [address] Hematology and Oncology 05/05/25 documented as of this encounter
--- OUTSIDE RECORDS SUMMARY | 2025-05-23 09:43 | XMS_ITS | Encounter Summary ---
Author Organization [employer] ([place], [place], [place], [place]) Address [address] [place] [address] Care Team Providers Care Hr Leader Name Role Phone Anusha Alberto PA-C Primary Care Provider Jorge Luis Meléndez MD Unavailable [phone] Encounter Details Date Type Department Care Team (Late st Contact Info) Description 07/31/2020 Transcribed Document [facility] [place] [address] [place] [address] ProviderСветлана MD [address] [place] [address] Social History Tobacco Use Types Packs/Day Years Used Date Smoking Tobacco: Never Assessed Sex and Gender Information Value Date Recorded Sex Assigned at Not on file Legal Sex Male 5:17 PM CDT Gender Identity Not on file Sexual Orientation Not on file documented as of this encounter Miscellaneous Notes * Cerner Conversion Note - Historical ProviderMD - 07/31/2020 9:39 PM CDT Patient: JACKSON BELL Age: 65 years Sex: Male : 1955 Associated Diagnoses: Acute hepatic failure Author: GLORIA CORDERO MD-EMR Basic Information Additional information: Chief Complaint from Nursing Triage Note : Chief Complaint 07/31/2020 21:14 EDT Chief Complaint Pt co Right sided abdominal pain to back that began at noon today. Pt had Liver biopsy performed today at 9am Pt is grimacing in pain. 07/31/2020 7:28 EDT Chief Complaint liver biopsy . History of Present Illness The patient presents with abdominal pain. The onset was 07/31/2020 12:00:00 . The course/duration of symptoms is worsening. The character of symptoms is sharp. The degree at onset was moderate. The Location of pain at onset was right and abdominal. The degree at present is severe. The Location of pain at present is right, diffuse and abdominal. Radiating pain: none. The exacerbating factor is movement. The relieving factor is none. Therapy today: see nurses notes. Risk factors consist of recent surgery. Associated symptoms: nausea and vomiting. Review of Systems Constitutional symptoms: No fever, no chills. Skin symptoms: No rash, Eye symptoms: Negative except as documented in HPI. ENMT symptoms: Negative except as documented in HPI. Respiratory symptoms: No shortness of breath, no cough. Cardiovascular symptoms: No chest pain, no syncope. Gastrointestinal symptoms: Abdominal pain, nausea, vomiting, No diarrhea, Genitourinary symptoms: Negative except as documented in HPI. Musculoskeletal symptoms: Negative except as documented in HPI. Neurologic symptoms: No numbness, no tingling. Psychiatric symptoms: Negative except as documented in HPI. Endocrine symptoms: Negative except as documented in HPI. Hematologic/Lymphatic symptoms: Negative except as documented in HPI. Allergy/immunologic symptoms: Negative except as documented in HPI. Additional review of systems information: All other systems reviewed and otherwise negative, All systems reviewed as documented in chart. Health Status Allergies: Allergic Reactions (All) No Known Allergies Canceled/Inactive Reactions (All) No Known Allergies. Medications: (Selected) Documented Medications Documented CBD OIL: 1 mg, SubLINgual, Daily, 0 Refill(s) Lupron Depot 45 mg/6 months intramuscular kit: 45 mg, IntraMuscular, q6mo, 0 Refill(s) Non Formulary Medication: 50 mg, Daily, MILK THISTLE, 0 Refill(s) Tumeric: Daily, 0 Refill(s) Tylenol 325 mg oral tablet: 2 Tab, Oral, Q4H, PRN: for pain, 120 Tab, 0 Refill(s) acetaminophen-HYDROcodone 325 mg-7.5 mg oral tablet: 1 Tab, Oral, Q6H, PRN: for pain, 15 Tab, 0 Refill(s). Past Medical/ Family/ Social History Medical history Reviewed as documented in chart. Surgical history: liver biopsy. Cholecystectomy ([id number]). Hernia repair ([id number]). benign nodules removed from body. carpal tunnel. cardiac ablation. prostate removed r/t cancer., Reviewed as documented in chart. Family history: No family history items have been selected or recorded., Reviewed as documented in chart. Social history: Social & Psychosocial Habits Alcohol 10/28/2013 Alcohol Use in Last Twelve Months Yes Days Per Week of Alcohol Use 2 Substance Abuse 02/20/2015 Recreational Drug Use History No Recreational Drug Use Last 12 Months No Tobacco 10/28/2013 Smoking Status Former smoker Years of Tobacco Use 10 Packs/Tins Daily .5 Month Tobacco Last Used 1989 . Problem list: Active Problems (14) Anemia Arthritis At risk for sleep apnea Back pain Disorder of prostate Fibrosis of liver GERD - Gastro-esophageal reflux disease Hiatal hernia High blood pressure Irritable bowel syndrome Murmur Peripheral vascular disease Prostate cancer Restless legs syndrome . Physical Examination Vital Signs Vital Signs/Vital Measures 07/31/2020 21:14 EDT Systolic Blood Pressure 109 mmHg Diastolic Blood Pressure 68 mmHg Temperature Source Tympanic Temperature Mode Fahrenheit Temperature, Fahrenheit 98.1 Deg F Clinical Temperature, C 36.7 Deg C Peripheral Pulse Rate 81 bpm Respiratory Rate 18 Breaths/Min Oxygen Saturation 100 % Oxygen Therapy Mode Room air, Venti-Mask 07/31/2020 11:30 EDT Systolic Blood Pressure 132 mmHg Diastolic Blood Pressure 61 mmHg Mean Arterial Pressure (MAP)-BMDI 88 Heart Rate Monitored 72 bpm Oxygen Saturation 100 % 07/31/2020 11:00 EDT Systolic Blood Pressure 141 mmHg HI Diastolic Blood Pressure 65 mmHg Mean Arterial Pressure (MAP)-BMDI 93 Heart Rate Monitored 62 bpm Oxygen Saturation 98 % 07/31/2020 10:30 EDT Systolic Blood Pressure 160 mmHg HI Diastolic Blood Pressure 68 mmHg Mean Arterial Pressure (MAP)-BMDI 98 Heart Rate Monitored 60 bpm Oxygen Saturation 99 % 07/31/2020 10:15 EDT Heart Rate Monitored 54 bpm LOW Oxygen Saturation 98 % 07/31/2020 10:00 EDT Heart Rate Monitored 58 bpm LOW Oxygen Saturation 99 % 07/31/2020 9:45 EDT Heart Rate Monitored 60 bpm Oxygen Saturation 99 % 07/31/2020 9:30 EDT Systolic Blood Pressure 159 mmHg HI Diastolic Blood Pressure 72 mmHg Mean Arterial Pressure (MAP)-BMDI 103 Heart Rate Monitored 74 bpm Oxygen Saturation 99 % 07/31/2020 9:20 EDT Systolic Blood Pressure 162 mmHg HI Diastolic Blood Pressure 79 mmHg Heart Rate Monitored 70 bpm Respiratory Rate 16 Breaths/Min Oxygen Saturation 98 % Oxygen Therapy Mode Nasal cannula Oxygen Flow Rate 2 Liter/Min 07/31/2020 9:15 EDT Systolic Blood Pressure 168 mmHg HI Diastolic Blood Pressure 78 mmHg Heart Rate Monitored 68 bpm Respiratory Rate 16 Breaths/Min Oxygen Saturation 99 % Oxygen Therapy Mode Nasal cannula Oxygen Flow Rate 2 Liter/Min 07/31/2020 9:10 EDT Systolic Blood Pressure 160 mmHg HI Diastolic Blood Pressure 80 mmHg Heart Rate Monitored 67 bpm Respiratory Rate 16 Breaths/Min Oxygen Saturation 98 % Oxygen Therapy Mode Nasal cannula Oxygen Flow Rate 2 Liter/Min 07/31/2020 9:05 EDT Systolic Blood Pressure 157 mmHg HI Diastolic Blood Pressure 71 mmHg Heart Rate Monitored 74 bpm Respiratory Rate 14 Breaths/Min Oxygen Saturation 100 % Oxygen Therapy Mode Nasal cannula Oxygen Flow Rate 2 Liter/Min 07/31/2020 9:00 EDT Systolic Blood Pressure 155 mmHg HI Diastolic Blood Pressure 72 mmHg Heart Rate Monitored 61 bpm Respiratory Rate 16 Breaths/Min Oxygen Saturation 100 % Oxygen Therapy Mode Nasal cannula Oxygen Flow Rate 2 Liter/Min 07/31/2020 8:55 EDT Systolic Blood Pressure 170 mmHg HI Diastolic Blood Pressure 78 mmHg Heart Rate Monitored 62 bpm Respiratory Rate 18 Breaths/Min Oxygen Saturation 100 % Oxygen Therapy Mode Nasal cannula Oxygen Flow Rate 2 Liter/Min 07/31/2020 8:50 EDT Systolic Blood Pressure 171 mmHg HI Diastolic Blood Pressure 85 mmHg Heart Rate Monitored 68 bpm Respiratory Rate 16 Breaths/Min Oxygen Saturation 99 % Oxygen Therapy Mode Nasal cannula Oxygen Flow Rate 2 Liter/Min 07/31/2020 7:28 EDT Blood Pressure Location Arm, right upper Blood Pressure Source Non-Invasive BP Device Blood Pressure Position Supine Systolic Blood Pressure 184 mmHg HI Diastolic Blood Pressure 90 mmHg Temperature Source Temporal artery scanning Temperature Mode Fahrenheit Temperature, Fahrenheit 97.3 Deg F Clinical Temperature, C 36.3 Deg C Pulse Method Non-Invasive BP Device Pulse Source Brachial, Right Peripheral Pulse Rate 85 bpm Respiratory Rate 16 Breaths/Min Oxygen Saturation 100 % Oxygen Therapy Mode Room air . Measurements 07/31/2020 21:14 EDT Height Source Measured Height Entry Format [place] Height/Length, BRAZILIAN (ft) 6 ft Height/Length BRAZILIAN 0 Inch CLINICALHEIGHT 182.88 cm Turner Body Weight 76.59 kg Weight Source, ED Critical estimated dosing weight Weight Entry Format Randolph Weight Wolof lb 175 lb CLINICALWEIGHT 79.55 kg Body Surface Area (BSA) 2.01 m2 Body Mass Index 23.8 kg/m2 07/31/2020 7:28 EDT Height Source Measured Height Entry Format [place] Height/Length, BRAZILIAN (ft) 6 ft Height/Length BRAZILIAN 0 Inch CLINICALHEIGHT 182.88 cm Turner Body Weight 77 kg Weight Source Standing scale Weight Entry Format [place] Weight Wolof lb 175 lb CLINICALWEIGHT 79.55 kg Body Surface Area (BSA) 2.01 m2 Body Mass Index 23.8 kg/m2 . Oxygen Saturation 07/31/2020 21:14 EDT Oxygen Saturation 100 % 07/31/2020 11:30 EDT Oxygen Saturation 100 % 07/31/2020 11:00 EDT Oxygen Saturation 98 % 07/31/2020 10:30 EDT Oxygen Saturation 99 % 07/31/2020 10:15 EDT Oxygen Saturation 98 % 07/31/2020 10:00 EDT Oxygen Saturation 99 % 07/31/2020 9:45 EDT Oxygen Saturation 99 % 07/31/2020 9:30 EDT Oxygen Saturation 99 % 07/31/2020 9:20 EDT Oxygen Saturation 98 % 07/31/2020 9:15 EDT Oxygen Saturation 99 % 07/31/2020 9:10 EDT Oxygen Saturation 98 % 07/31/2020 9:05 EDT Oxygen Saturation 100 % 07/31/2020 9:00 EDT Oxygen Saturation 100 % 07/31/2020 8:55 EDT Oxygen Saturation 100 % 07/31/2020 8:50 EDT Oxygen Saturation 99 % 07/31/2020 7:28 EDT Oxygen Saturation 100 % . General: Alert, mild distress. Skin: Warm, dry, Jaundiced. Head: Normocephalic. Neck: Trachea midline. Eye: Pupils are equal, round and reactive to light, Sclera: Icteric. Cardiovascular: Regular rate and rhythm, Normal peripheral perfusion. Respiratory: Respirations are non-labored. Gastrointestinal: Tenderness: Severe, right upper quadrant, Guarding: Moderate, Rebound: Negative. Musculoskeletal: Normal ROM, no deformity. Neurological: Alert and oriented to person, place, time, and situation. Psychiatric: Cooperative, appropriate mood & affect. Medical Decision Making Differential Diagnosis: Abdominal pain, ureteral stone, biliary colic, cholecystitis, hepatitis, pancreatitis, irritable bowel syndrome, pyelonephritis, ischemic bowel, incarcerated hernia. Documents reviewed: Emergency department nurses' notes, emergency department records. Results review: Lab results : Lab Results 07/31/2020 22:39 EDT PT 11.3 Second(s) INR 1.1 PTT 24.6 Second(s) 07/31/2020 22:23 EDT Sodium Level 137 mmol/L Potassium Level 3.5 mmol/L Chloride Level 101 mmol/L LOW Carbon Dioxide Level 28 mmol/L Anion Gap 12 Glucose Level 160 mg/dL HI Blood Urea Nitrogen 15 mg/dL Creatinine Level 0.90 mg/dL eGFR >60 mL/min/1.73m2 eGFR NonAfrican >60 mL/min/1.73m2 Bun/Creatinine 16.7 Calcium Level 9.3 mg/dL Protein Total 8.2 Gram/dL Albumin Level 4.5 Gram/dL Globulin 3.7 Gram/dL A/G Ratio 1.2 Bilirubin Total 10.0 mg/dL HI Alk Phos 105 Units/Liter AST 683 Units/Liter HI ALT 784 Units/Liter HI Lipase Level 506 Units/Liter HI Lactic Acid Level 1.5 mmol/L WBC 5.5 K/uL RBC 3.28 Million/uL LOW Hgb 11.7 Gram/dL LOW Hct 33.2 % LOW MCV 101.2 fL HI MCH 35.7 pg HI MCHC 35.2 Gram/dL Platelet Count 118 K/uL LOW MPV 9.8 fL RDW 15.7 % HI Neut % 87.0 % HI Neut # 4.75 K/uL Lymph % 6.4 % LOW Lymph # 0.35 K/uL LOW Starr % 5.7 % Starr # 0.31 K/uL Eos % 0.5 % LOW Eos # 0.03 K/uL LOW Baso % 0.2 % Baso # 0.01 K/uL Slide Review No IG# 0 x10(3)/uL IG% 0 % , Interpretation Concerning for evidence of acute liver failure. Radiology results: Computed tomography, a/p, with contrast, reviewed radiologist's report. Reexamination/ Reevaluation Discussed results with pt and family. Explained that pt requires urgent hepatology consultation and thus will need to be transferrerd to as [facility] [place] not have [place] available. Pt and family voiced understanding however they do not wish to stay. I explained that pt has life threatewning condition and if he were to leave he would be leaving AGAINST MEDICAL ADVICE. Pt and family voiced understanding and opted to signout AMA. Impression and Plan Diagnosis Acute hepatic failure - Discharge, Medical Plan Disposition: Left against medical advice. Prescriptions: Prescription [facility]: oxyCODONE 5 mg oral capsule (Prescribe): 1 Cap, Oral, Q6H, PRN: as needed for pain, 12 Cap, 0 Refill(s). Patient was given the following educational materials: Liver Failure. Counseled: Patient, Family, Regarding diagnosis, Regarding diagnostic results, Regarding prescription, Patient indicated understanding of instructions. Orders: Launch Orders Laboratory: Lipase Level (Order): Specimen Type: Blood, Stat collect, 07/31/2020 21:40 EDT, 1-Time, Stop: 07/31/2020 21:40 EDT, Nurse Collect Lactic Acid Level with Reflex if Indicated (Order): Specimen Type: Blood, Stat collect, 07/31/2020 21:40 EDT, 1-Time, Stop: 07/31/2020 21:40 EDT, Nurse Collect CMP Comprehensive Metabolic Panel (Order): Specimen Type: Blood, Stat collect, 07/31/2020 21:40 EDT, 1-Time, Stop: 07/31/2020 21:40 EDT, Nurse Collect CBC w/ Auto Diff (Order): Specimen Type: Blood, Stat collect, 07/31/2020 21:40 EDT, 1-Time, Stop: 07/31/2020 21:40 EDT, Nurse Collect Pharmacy: morphine (Order): 4 mg, IV Push, 1-Time LR bolus (Order): 1,000 mL, 1,000 mL/Hr, IV Piggyback, 1-Time Zofran (Order): 4 mg, IV Push, Q4H, PRN: Nausea/Vomiting Radiology: CT Abdomen Pelvis W (Order): Stat, Transport Mode: Ambulatory, 07/31/2020 21:40 EDT, Reason: Other (Please Specify), Abd pain, unspecified. documented in this encounter Plan of Treatment Not on file documented as of this encounter Visit Diagnoses Not on filedocumented in this encounter Care Teams Hr Leader Relationship Specialty Start Date End Date Anusha Alberto PA-C PCP - General Physician Pipeline Operator 10/09/22 Jorge Luis Meléndez MD [facility] [address] Hematology and Oncology 05/05/25 documented as of this encounter
--- OUTSIDE RECORDS SUMMARY | 2025-05-23 09:43 | XMS_ITS | Encounter Summary ---
Author Organization [employer] ([place], [place], [place], [place]) Address [address] [place] [address] Care Team Providers Care Plodding Machine Operator Name Role Phone Anusha Alberto PA-C Primary Care Provider Jorge Luis Meléndez MD Unavailable [phone] Encounter Details Date Type Department Care Team (Late st Contact Info) Description 07/26/2020 Transcribed Document [facility] [place] [address] [place] [address] ProviderСветлана MD [address] [place], [place] [address] Social History Tobacco Use Types Packs/Day Years Used Date Smoking Tobacco: Never Assessed Sex and Gender Information Value Date Recorded Sex Assigned at Not on file Legal Sex Male 5:17 PM CDT Gender Identity Not on file Sexual Orientation Not on file documented as of this encounter Miscellaneous Notes * Cerner Conversion Note - Светлана ProviderMD - 07/26/2020 2:01 PM CDT Pre Procedure Adult Entered On: 07/26/2020 14:04 EDT Performed On: 07/26/2020 14:01 EDT by CHRISTELLE CHANDRA RN Height and Weight, Clinical Dosing Height Source : Measured Height Entry Format : [place] Height, Feet : 6 ft(Converted to: 183 cm, 72 Inch) Height, Inches : 0 Inch(Converted to: 0 ft 0 Inch, 0.00 cm) Clinical Height : 182.88 cm Weight Source : Standing scale Weight Entry Format : [place] Clinical Dosing Weight : 79.55 kg Weight, Pounds : 175 lb Body Surface Area (BSA) : 2.01 m2 Body Mass Index : 23.8 kg/m2 [place] Body Weight : 77 kg CHRISTELLE CHANDRA RN - 07/26/2020 14:01 EDT Health Histories Smoking Status : Former smoker, quit more than 30 days ago Smokeless Tobacco Status : Never CHRISTELLE CHANDRA RN - 07/26/2020 14:01 EDT Social History (As Of: 07/26/2020 14:04:27 EDT) Tobacco: Smoking Status Former smoker. Years of Use: 10. Packs/Tins Daily: .5. Last Used: 1989. (Last Updated: 10/28/2013 08:51:40 EST by LAN FAJARDO, RN) Alcohol: Use in Last 12 Months: Yes. Days/Week: 2. (Last Updated: 10/28/2013 08:51:40 EST by LAN FAJARDO RN) Substance Abuse: Drug Use Hx: No. Use in Last 12 Months: No. (Last Updated: 02/20/2015 07:36:57 EDT by LUZ MARINA MCCOY RN) Infectious Disease History Has the patient ever been tested for COVID-19? : No, Screening today for COVID-19 Date of COVID-19 test known? : Yes Does patient have symptoms of COVID-19? : No COVID19 Screening : No Experiencing Infectious Disease Symptoms : No symptoms Physical contact outside [place] in the last 30 days : No Infectious Disease History : None, Hepatitis C, Hepatitis Non A, B, C Tuberculosis Symptoms : None CHRISTELLE CHANDRA RN - 07/26/2020 14:01 EDT COVID19 PreProcedure Screening Is this an Emergent or Add on Procedure? : No Has patient been isolated since the test : Yes Exposed to COVID19 symptoms since test? : No CHRISTELLE CHANDRA RN - 07/26/2020 14:01 EDT Anesthesia/Transfusion History Family History of Anesthesia Reaction : Prior transfusion without reaction Blood Transfusion Acceptable to Patient : Yes Transfusion History : Prior anesthesia without reaction Family History of Anesthesia Reaction : None CHRISTELLE CHANDRA RN - 07/26/2020 14:01 EDT Functional Assessment Living Situation : Home Patient Lives With : Spouse Current Home Treatments : None CHRISTELLE CHANDRA RN - 07/26/2020 14:01 EDT [place] Suicide Severity Rating Scale (C-SSRS) CSSRS Past Month Wish to be : No CSSRS Past Month Suicidal Thoughts : No CSSRS Lifetime Suicide Behavior : No Suicide Severity Rating Score : 0 Suicide Severity Rating : No Additional Care Required at this time CHRISTELLE CHANDRA RN - 07/26/2020 14:01 EDT Psychosocial History Do You Have a History of the Following? : Patient denies history Currently in Unsafe Situation : No CHRISTELLE CHANDRA RN - 07/26/2020 14:01 EDT Advance Directive Patient has Advance Directive *Q : No, patient refuses Advance Directive information CHRISTELLE CHANDRA RN - 07/26/2020 14:01 EDT Education Topics, Periop Preadmission Perioperative Education Grid Arrival Time/Place : Verbalizes understanding Falls : Verbalizes understanding Infection Control : Verbalizes understanding IV's : Verbalizes understanding NPO Status/Directions : Verbalizes understanding CHRISTELLE CHANDRA RN - 07/26/2020 14:01 EDT General Info Support Person/Pt Rep Name : Renetta Support Person/Pt Rep Contact Information : [phone] Want Family/Rep/Phys Notified of Admit : No Emergency Contact #1 : Renetta Emergency Contact #1 Emergency Contact #1 Relationship : Emergency Contact #2 : na Emergency Contact #2 Phone Number : na Emergency Contact #2 Relationship : na Chief Complaint : liver biopsy Primary Language : East Timorese Preferred Communication Mode : Verbal Communication Barrier : None Client Associate Needed : No CHRISTELLE CHANDRA RN - 07/26/2020 14:01 EDT Sleep Apnea Risk Assmt Hx of [...] Sleep Apnea Risk Level Score : 2 CHRISTELLE CHANDRA RN - 07/26/2020 14:01 EDT James Scale James Sensory Perception : No impairment James Moisture : Moist James Activity : Walks frequently James Mobility : No limitation James Nutrition : Excellent James Friction and Shear : No apparent problem James Score : 21 CHRISTELLE CHANDRA RN - 07/26/2020 14:01 EDT Fall Risk Scales ABCs Fall Injury Risk Identification : None LUCIO Hx Falls Immediate/Within 3 Months : No Lucio Secondary Diagnosis : Yes LUCIO Use of Ambulatory Aid : None LUCIO IV Therapy or IV Access : Yes Lucio Gait/Transferring : Normal, bedrest, immobile CHRISTELLE CHANDRA RN - 07/26/2020 14:01 EDT Valuables and Belongings Valuables and Belongings : Clothing Clothing : Common streetwear Clothing Disposition : With patient, Declines to send to security/safe CHRISTELLE CHANDRA RN - 07/26/2020 14:01 EDT Electronically signed by E[facility] Conversion Junior Linux Administrator Cerner at 03/11/2023 10:30 AM CDT documented in this encounter Plan of Treatment Not on file documented as of this encounter Visit Diagnoses Not on filedocumented in this encounter Care Teams Plodding Machine Operator Relationship Specialty Start Date End Date Anusha Alberto PA-C PCP - General Physician Delivery Truck Driver Heavy 10/09/22 Jorge Luis Meléndez MD [address] [place] [id number] Hematology and Oncology 05/05/25 documented as of this encounter
--- OUTSIDE RECORDS SUMMARY | 2025-05-23 09:43 | XMS_ITS | Encounter Summary ---
Author Organization [employer] ([place], [place], [place], [place]) Address [address] [place] [address] Care Team Providers Care Ski Lift Operator Name Role Phone Anusha Alberto PA-C Primary Care Provider Jorge Luis Meléndez MD Unavailable [phone] Encounter Details Date Type Department Care Team (Late st Contact Info) Description 10/13/2019 Transcribed Document [facility] [address] [place] [address] ProviderСветлана MD [address] [place] [address] Social History Tobacco Use Types Packs/Day Years Used Date Smoking Tobacco: Never Assessed Sex and Gender Information Value Date Recorded Sex Assigned at Not on file Legal Sex Male 5:17 PM CDT Gender Identity Not on file Sexual Orientation Not on file documented as of this encounter Miscellaneous Notes * Cerner Conversion Note - Светлана Ledesma MD - 10/13/2019 9:15 AM ENTRY LEVEL CIVIL ENGINEER [facility] [address] [place] [id number] JACKSON BELL :1955 Visit Time:10/13/2019 Your Visit Summary Your Care Team Primary Provider: BOB MA MD Secondary Provider: Your Diagnosis Acute bacterial bronchitis Dyspnea SOA - Shortness of Air, SOA - Shortness of Air Medical Information You may obtain a copy of your Emergency Department visit from Medical Records by calling the hospital phone number listed above and asking to be directed to the Medical Records Department. If you had special tests, such as EKG???s or X-rays, the interpretation of your tests given to you by the Emergency Department Physician is a preliminary report. Some fractures and illnesses fail to show up on preliminary tests. These will be reviewed again and we will call you if there are any new suggestions. If your symptoms continue notify your physician. After you leave, you should follow the instructions provided. What to do next Follow-Up Appointments Follow Up with [facility] (Find a Doc) When Within 2 to 3 days Where: [place] [address]- [employer] (1) Allergies No Known Allergies Immunizations This Visit No Immunizations Found Medications What How Much When Instructions Next Dose New amoxicillin (amoxicillin 500 mg oral capsule) 1 Capsule(s) Oral Three Times A Day Duration: 10 Day(s) Printed Prescription The home medications listed are only as accurate as the information you provided. Please continue taking all of your medications prescribed by your Primary Care Provider unless specifically told to change or discontinue the medication. Please direct any questions regarding your home medications to your Primary Care Provider. Take your medications faithfully. Do NOT skip [...] Please dispose of unused and medications per pharmacy guidance. Test Results Laboratory or Other Results This Visit (last charted value for your 10/13/2019 visit) Hematology 10/13/2019 5:52 AM WBC: 4.1 K/uL -- Normal range between ( 3.6 and 9.5 ) RBC: 2.82 Million/uL -- Normal range between ( 4.20 and 5.70 ) Hct: 28.4 % -- Normal range between ( 40.1 and 51.0 ) Hgb: 9.9 g/dL -- Normal range between ( 13.5 and 17.3 ) Platelet Count: 140 K/uL -- Normal range between ( 163 and 369 ) MCH: 35.1 pg -- Normal range between ( 25.6 and 32.2 ) MCHC: 34.9 Gram/dL -- Normal range between ( 32.2 and 36.5 ) MCV: 100.7 fL -- Normal range between ( 79.0 and 94.8 ) Slide Review: No Eos %: 1.9 % -- Normal range between ( 0.0 and 7.0 ) [place] #: 0.29 K/uL -- Normal range between ( 0.16 and 1.00 ) Eos #: 0.08 x10(3)/uL -- Normal range between ( 0.00 and 0.80 ) [place] %: 7.0 % -- Normal range between ( 3.0 and 9.0 ) Baso %: 0.2 % -- Normal range between ( 0.0 and 1.5 ) Baso #: 0.01 x10(3)/uL -- Normal range between ( 0.00 and 0.20 ) RDW: 15.9 % -- Normal range between ( 11.7 and 14.9 ) Neut %: 77.8 % -- Normal range between ( 34.0 and 71.0 ) Neut #: 3.21 K/uL -- Normal range between ( 1.56 and 6.13 ) Lymph %: 12.6 % -- Normal range between ( 19.3 and 53.1 ) Lymph #: 0.52 x10(3)/uL -- Normal range between ( 1.00 and 3.90 ) MPV: 9.5 fL -- Normal range between ( 9.4 and 12.4 ) IG#: 0.02 x10(3)/uL -- Normal range between ( 0.00 and 0.05 ) IG%: 0.50 % -- Normal range between ( 0.00 and 0.60 ) General Chemistry 10/13/2019 5:52 AM Creatinine Level: 0.90 mg/dL -- Normal range between ( 0.70 and 1.30 ) Sodium Level: 138 mmol/L -- Normal range between ( 136 and 146 ) Potassium Level: 4.0 mmol/L -- Normal range between ( 3.5 and 5.1 ) Chloride Level: 110 mmol/L -- Normal range between ( 102 and 112 ) Carbon Dioxide Level: 23 mmol/L -- Normal range between ( 21 and 32 ) Anion Gap: 9 -- Normal range between ( 9 and 20 ) Bilirubin Total: 3.4 mg/dL -- Normal range between ( 0.2 and 1.2 ) A/G Ratio: 1.2 -- Normal range between ( 1.1 and 2.5 ) ALT: 66 Units/Liter -- Normal range between ( 16 and 61 ) AST: 38 Units/Liter -- Normal range between ( 5 and 37 ) Globulin: 3.5 Gram/dL -- Normal range between ( 1.5 and 4.5 ) Alk Phos: 93 Units/Liter -- Normal range between ( 27 and 136 ) Bun/Creatinine: 14.4 -- Normal range between ( 8.0 and 20.0 ) Calcium Level: 9.0 mg/dL -- Normal range between ( 8.4 and 10.1 ) eGFR : >60 mL/min/1.73m2 eGFR NonAfrican: >60 mL/min/1.73m2 Glucose Level: 144 mg/dL -- Normal range between ( 74 and 106 ) Blood Urea Nitrogen: 13 mg/dL -- Normal range between ( 7 and 22 ) Protein Total: 7.8 Gram/dL -- Normal range between ( 6.4 and 8.2 ) Albumin Level: 4.3 Gram/dL -- Normal range between ( 3.4 and 5.0 ) Cardiac Specific Markers 10/13/2019 8:25 AM Troponin I Ultra: <0.015 ng/mL -- Normal range between ( 0.015 and 0.045 ) 10/13/2019 5:52 AM ProBNP: 42 pg/mL -- Normal range between ( 0 and 125 ) Computed Tomography 10/13/2019 7:04 AM CTA Chest PE Protocol: CTA Chest PE Protocol Education Materials Acute Bronchitis, Adult Acute bronchitis is when air tubes (bronchi) in the lungs suddenly get swollen. The condition can make it hard to breathe. It can also cause these symptoms: ??? A cough. ??? Coughing up clear, yellow, or green mucus. ??? Wheezing. ??? Chest congestion. ??? Shortness of breath. ??? A fever. ??? Body aches. ??? Chills. ??? A sore throat. Follow these instructions at home: Medicines ??? Take esjx-bdf-ribywcd and prescription medicines only as told by your doctor. ??? If you were prescribed an antibiotic medicine, take it as told by your doctor. Do not stop taking the antibiotic even if you start to feel better. General instructions ??? Rest. ??? Drink enough fluids to keep your pee (urine) pale yellow. ??? Avoid smoking and secondhand smoke. If you smoke and you need help quitting, ask your doctor. Quitting will help your lungs heal faster. ??? Use an inhaler, cool mist vaporizer, or humidifier as told by your doctor. ??? Keep all follow-up visits as told by your doctor. This is important. How is this prevented? To lower your risk of getting this condition again: ??? Wash your hands often with soap and water. If you cannot use soap and water, use hand educational paraprofessional. ??? Avoid contact with people who have cold symptoms. ??? Try not to touch your hands to your mouth, nose, or eyes. ??? Make sure to get the flu shot every year. Contact a doctor if: ??? Your symptoms do not get better in 2 weeks. Get help right away if: ??? You cough up blood. ??? You have chest pain. ??? You have very bad shortness of breath. ??? You become dehydrated. ??? You faint (pass out) or keep feeling like you are going to pass out. ??? You keep throwing up (vomiting). ??? You have a very bad headache. ??? Your fever or chills gets worse. This information is not intended to replace advice given to you by your health care provider. Make sure you discuss any questions you have with your health care provider. Document Released: 04/27/2009 Document Revised: 06/23/2018 Document Reviewed: 04/29/2017 [employer] Patient Education ?? 2019 [employer] Shortness of Breath, Adult Shortness of breath means you have trouble breathing. Your lungs are organs for breathing. Follow these instructions at home: Pay attention to any changes in your symptoms. Take these actions to help with your condition: ??? Do not smoke. Smoking can cause shortness of breath. If you need help to quit smoking, ask your doctor. ??? Avoid things that can make it harder to breathe, such as: ? Mold. ? Dust. ? Air pollution. ? Chemical smells. ? Things that can cause allergy symptoms (allergens), if you have allergies. ??? Keep your living space clean and free of mold and dust. ??? Rest as needed. Slowly return to your usual activities. ??? Take dvxh-ycy-gtaaxbt and prescription medicines, including oxygen and inhaled medicines, only as told by your doctor. ??? Keep all follow-up visits as told by your doctor. This is important. Contact a doctor if: ??? Your condition does not get better as soon as expected. ??? You have a hard time doing your normal activities, even after you rest. ??? You have new symptoms. Get help right away if: ??? You have trouble breathing when you are resting. ??? You feel light-headed or you faint. ??? You have a cough that is not helped by medicines. ??? You cough up blood. ??? You have pain with breathing. ??? You have pain in your chest, arms, shoulders, or belly (abdomen). ??? You have a fever. ??? You cannot walk up stairs. ??? You cannot exercise the way you normally do. This information is not intended to replace advice given to you by your health care provider. Make sure you discuss any questions you have with your health care provider. Document Released: 04/27/2009 Document Revised: 11/26/2017 Document Reviewed: 11/26/2017 [employer] Patient Education ?? 2019 [employer] Emergency Awareness and Preventative Care STROKE is [...] Assistance with quitting is available by contacting 8-770-VHMENOW. This is a free resource providing counseling, support, and referral. Or you may contact your personal physician. [employer] Suicide Prevention Lifeline: The National Suicide Prevention [...] and how to prevent infections, visit www.cdc.gov/sepsis. The examination and treatment you have received in the Emergency Department has been done to provide an appropriate evaluation and stabilizing treatment on an emergency basis only. Given the limited resources, it is not meant to be a substitute for complete medical care. The follow-up doctor you named will receive a copy of your records and all test reports. IT IS IMPORTANT THAT YOU SCHEDULE A FOLLOW-UP APPOINTMENT AND ARE RE-EVALUATED. You should report any new complaints, symptoms, or remaining problems at that time. IT IS IMPOSSIBLE FOR THE EMERGENCY DEPARTMENT TO RECOGNIZE AND TREAT ALL ELEMENTS OF INJURY OR ILLNESS IN A SINGLE VISIT. If you have been referred to a specialist physician, it means that we believe you may have a condition that requires the expertise of a specialist. These physicians work in partnership with the hospital and have agreed to see referred patients in their office for further evaluation. KEEP IN MIND THAT THE SPECIALIST HAS HIS/HER OWN OFFICE POLICIES WHICH MAY REQUIRE PROPER INSURANCE OR PAYMENT UP FRONT BEFORE THE SPECIALIST WILL SEE YOU. It is your responsibility to call the specialist physician to make an appointment. We do not have the ability to refer patients to specialists/physicians that work with specific insurance companies. Please be advised that all financial charges or billing practices are determined by that practice, not the hospital. If your insurance company requires that you see a specialist from their approved list, it is your responsibility to contact your insurance company to make those arrangements. It is also your responsibility to follow any other requirements of your insurance company necessary to obtain coverage for claims submitted. We will bill your insurance; however, you are responsible today for any co-pay amounts. You will receive a separate bill for any services you may have received including: emergency, radiology, or pathology physicians. Patient Name:JACKSON BELL I have received this information and was given the opportunity to ask questions. Patient/Tree Loader Meat Name: Patient/Tree Loader Meat Signature: Relationship to Patient: Clinician/Hospital Tree Loader Meat Signature: Please Provide a Telephone Number Where You Can Be Reached: Is it Permissible To Leave a Message? Date: documented in this encounter Plan of Treatment Not on file documented as of this encounter Visit Diagnoses Not on filedocumented in this encounter Care Teams Ski Lift Operator Relationship Specialty Start Date End Date Anusha Alberto PA-C PCP - General Physician Family Service Worker 10/09/22 Jorge Luis Meléndez MD [address] [address] Hematology and Oncology 05/05/25 documented as of this encounter
--- OUTSIDE RECORDS SUMMARY | 2025-05-23 09:43 | XMS_ITS | Encounter Summary ---
Author Organization [employer] ([place], [place], [place], [place]) Address [address] [place] [address] Care Team Providers Care Forest Landscape Ecology Professor Name Role Phone Anusha Alberto PA-C Primary Care Provider Jorge Luis Meléndez MD Unavailable [phone] Encounter Details Date Type Department Care Team (Late st Contact Info) Description 05/09/2025 Clinic Visit [facility] [address] [place] [address] [address] [place] [address] Jorge Luis Meléndez MD [address] [facility] [address] [place] [address] Social History Tobacco Use Types Packs/Day Years [...] Date Stanislav rded Speak language other than Thai at home Not on file 12/11/2023 Want [...] on filedocumented in this encounter Care Teams Forest Landscape Ecology Professor Relationship Specialty Start Date End Date Anusha Alberto PA-C PCP - General Physician Oncology Radiation Physician 10/09/22 Jorge Luis Meléndez MD [address] [place] [id number] Hematology and Oncology 05/05/25 documented as of this encounter
--- OUTSIDE RECORDS SUMMARY | 2025-05-23 09:43 | XMS_ITS | Encounter Summary ---
Author Organization Healthcare Address [address] [place] [address] Care Team Providers Care Travel Consultant Name Role Phone Mohsen Harris MD Primary Care Provider + Encounter Details Date Type Department Care Team (Late st Contact Info) Description 03/31/2025 Ancillary Procedure [facility] [address] [place] [id number] Mikie Armas MD [address] [place] [address] Social History Tobacco Use Types Packs/Day Years [...] Procedure Name Priority Date/Time Associated Diagnosis Comments XR LUMBAR SPINE 2 OR 3 VIEWS 03/31/2025 9:21 AM EDT documented in this encounter Results * XR Lumbar Spine 2 or 3 Views (03/31/2025 9:21 AM EDT) Anatomical Region Laterality Modality Spine, L-spine Digital Radiogra phy 03/31/2025 9:21 AM EDT Narrative 03/31/2025 9:50 AM EDT [place] [address] Patient Name: JACKSON BELL Patient : 1955 [...] Procedure Note Rehan Bonilla MD - 03/31/[address] [address] Patient Name: JACKSON BELL Patient : 1955 [...] MD IMG XR PROCEDURES Final Re sult documented in this encounter Visit Diagnoses Not on filedocumented in this encounter Care Teams Travel Consultant Relationship Specialty Start Date End Date Mohsen Harris MD [address] [place] [address] PCP - General 07/30/21 documented as of this encounter
--- OUTSIDE RECORDS SUMMARY | 2025-05-23 09:43 | XMS_ITS | CCD ---
Author Name Interface, [id number] Address [address] [facility] [address] Oncology an d Hematology Address [address] [place] [address] Care Team Providers Care Tire Bladder Maker Name Role Phone Brittaney FAIRCHILD, Sam Unavailable Unavailable Reason for Visit FOLLOW UP Social History Date Name Value Sex Male
--- OUTSIDE RECORDS SUMMARY | 2025-05-23 09:43 | XMS_ITS | Clinical Summary ---
Author Organization [facility] Address [address] [place] [address] Care Team Providers Care Gettering Operator Name Role Phone Desiree Fofana DO Primary Care Provider + [phone] Allergies Active Allergy Reactions Criticality Noted Date Comments Ciprofloxacin Nausea And Vomiting, Other (See Comments) Medium 05/29/2023 Medications MILK THISTLE PO Take 250 mg by mouth Daily. Active Leuprolide Acetate (ELIGARD SC) Inject under the skin into the appropriate area as directed. 1st dose 11/11/18 Active HYDROcodone-aceta minophen (NORCO) 10-325 MG per tablet Take 1 tablet every 4 hours by oral route. Active fluticasone (FLONASE) 50 MCG/ACT nasal spray fluticasone 50 mcg/actuation nasal spray,suspension Active gabapentin (NEURONTIN) 100 MG capsule Active docusate sodium (COLACE) 50 MG capsule capsule Active leuprolide (Lupron Depot, 6-Month,) 45 MG kit injection Inject 1 syringe intramuscularly single dose every 6 months Active ondansetron ODT (ZOFRAN-ODT) 8 MG disintegrating tabletIndications :Nausea Place 1 tablet on the tongue Every 8 (Eight) Hours As Needed for Nausea or Vomiting. 30 tablet 3 05/24/20 24 Active Turmeric (QC Tumeric Complex) 500 MG capsule Take by mouth. Active Enulose 10 GM/15ML solution solution (encephalopathy)I ndications:Chroni c idiopathic constipation Take 30 mL by mouth 2 (Two) Times a Day. 237 mL 11 08/15/20 24 Active pantoprazole (PROTONIX) 40 MG EC tabletIndications :Gastroesophageal reflux disease with esophagitis without hemorrhage Take 1 tablet by mouth Daily. 90 tablet 3 08/15/20 24 Active carvedilol (COREG) 3.125 MG tabletIndications :Cirrhosis of liver without ascites, unspecified hepatic cirrhosis type Take 1 tablet by mouth 2 (Two) Times a Day With Meals. 180 tablet 3 01/31/20 25 Active Active Problems Problem Noted Date Diagnosed Date Acute bilateral upper abdominal pain 08/01/2020 Prostate CA 09/15/2017 Cancer Staging:Clinical:Stage IV(T3b, N1, M0, PSA: 10 to 19, Santana 8-10) - Signed by Saida Chowdhury MD on 10/12/2017 S/P prostatectomy 09/15/2017 Anemia 09/15/2017 Thrombocytopenia 09/15/2017 Immunizations Immunization Administration Dates Next Due FluMist 2-49yrs 09/21/2017 Fluzone High-Dose 65+YRS 09/01/2018 Hepatitis A 10/01/2018 Family History Medical History Relation Name Comments Diabetes Father Heart disease Father Lymphoma Father Stroke Father Throat cancer Father Rheumatic fever Mother Valvular heart disease Mother Colon cancer Sister Liver cancer Sister Relation Name Status Comments Father Mother Sister Alive Social History Tobacco Use Types Packs/Day Years Used Date Smoking Tobacco: Former Cigarettes 0.5 10 1 - 09/10/2007 Smokeless Tobacco: Never Tobacco Cessation:Counseling Given: Not Answered Alcohol Use Standard Drinks/Week Comments Not Currently [...] Sign Reading Time Taken Comments Blood Pressure 156/67 01/30/2025 9:30 AM EDT Pulse 75 01/30/2025 9:30 AM EDT Temperature 36.3 C (97.3 F) 08/15/2024 9:41 AM EDT Respiratory Rate 12 05/27/2024 12:44 PM EDT Oxygen Saturation 100% 05/27/2024 12:44 PM EDT Inhaled Oxygen Concentration - - Weight 82.6 kg (182 lb) 01/30/2025 9:30 AM EDT Height 182.9 cm (6' 0.01 ) 08/15/2024 9:41 AM ED T Body Mass Index 24.68 08/15/2024 9:41 AM EDT Plan of Treatment Upcoming Encounters Date Type Department Care Team (Anup st Contact Info) Description 08/23/2025 9:30 AM EDT Office Visit [facility] [address] [facility] [address] [place] [phone] Janet Burroughs APRN [address] [facility] [address] [place] [address] Health Maintenance Due Date Last Done Comments Pneumococcal Vaccine 50+ (1 of 2 - PCV) 1973 TDAP/TD VACCINES (1 - Tdap) 1973 COLOGUARD 1999 COLON CANCER SCREENING 5 YEA R SIGMOIDOSCOPY [address] COLONOGRAPHY 1999 FECAL OCCULT BLOOD TEST 1999 FIT Testing (1 year) 1999 ZOSTER VACCINE (1 of 2) 2004 Hepatitis B (1 of 3 - Risk 3 -dose series) 2014 ANNUAL WELLNESS VISIT 09/10/2017 COVID-19 Vaccine ( season) 2025 09/07/2024, 08/06/2024, 08/28/2023, Additional history exists INFLUENZA VACCINE 05/23/2025 09/08/2024, , 09/08/2024, Additional history exists COLONOSCOPY 12/31/2032 12/31/2022, 01/21/2018 COLORECTAL CANCER SCREENING 12/31/2032 HEPATITIS C SCREENING Completed 08/01/2020, 018 AAA SCREEN ONCE Completed 02/16/2025, 01/22, 02/10/2024, Additional history exists Medical Devices Implanted Type Area Office Sweeper Device Identifier Shelf Expiration Date Model / Serial / Lot Grft Derm Matrx Stravix 3x6cm Fz - [id number] - [id number] Implanted:Qty: 1 on 09/15/2017 by Tanner Acevedo Jr., MD at [facility] Implant N/A: Pelvis [employer] 07/31/2019 [id number] / ,[id number] ,[id number] / ,[id number] ,[id number] Description:Placed on Peripr ostatic Neurovascular Bundle Sealant Fibrin Tisseel Fz 4ml - [id number] - [id number] Implanted:Qty: 1 on 09/15/2017 by Tanner Acevedo Jr., MD at [facility] Implant N/A: Pelvis [employer] 02/20/2019 [id number] / [id number] / [id number] Procedures Procedure Name Priority Date/Time Associated Diagnosis Comments ENDOSCOPY, INT 04/05/2025 CT ABDOMEN PELVIS W CONTRAST STAT 08/01/2020 12:20 PM EDT HEPATITIS PANEL, ACUTE STAT 08/01/2020 9:43 AM EDT COLONOSCOPY Routine 01/21/2018 from Last 3 Months or Most Recently Relevant to Health Maintenance Results * Endoscopy, Int (04/05/2025) Killian Duque MD INTERFACE NEEDS F inal Result * CT Abdomen Pelvis With Contrast (08/01/2020 12:20 PM EDT) Anatomical Region Laterality Modality Abdomen, Pelvis N/A Computed Tomogra phy 08/01/2020 12:3 4 PM EDT Impressions 08/01/2020 4:57 PM EDT 1. Abnormal free fluid identified within the pelvis, however, there has been significant decrease seen in size of the cystic lesion along the left pelvic sidewall in the interval. Clinical correlation is needed. 2. Fatty infiltration seen in the liver with enlargement of the spleen. Remainder of the abdomen and pelvis is grossly unremarkable. No abnormality is seen surrounding the liver. E: 08/01/2020 This report was finalized on 08/01/2020 4:[address] Sonja Rodríguez MD. Narrative 08/01/2020 4:57 PM EDT EXAMINATION: CT ABDOMEN AND PELVIS W CONTRAST- INDICATION: Abdominal pain, recent liver biopsy, nausea and vomiting, right upper quadrant pain. TECHNIQUE: Multiple axial CT imaging was obtained of the abdomen and pelvis following the administration of intravenous contrast. The radiation dose reduction device was turned on for each scan per the ALARA (As Low as Reasonably Achievable) protocol. COMPARISON: 12/16/2018. FINDINGS: ABDOMEN: The lung bases are grossly clear. There is diffuse fatty infiltration identified of the liver. The gallbladder has been surgically removed. The spleen is enlarged measuring in length from pole to pole 18.6 cm. No underlying mass or lesion. The pancreas is homogeneous. The kidneys and adrenal glands are within normal limits. The abdominal portion of the gastrointestinal tract is within normal limits. No free fluid or free air. No abnormal mass or fluid collection is identified. PELVIS: The pelvic organs are unremarkable. The pelvic portion of the gastrointestinal tract is within normal limits. The appendix is normal. There is free fluid identified within the pelvis with decrease seen in size of the cystic lesion along the left pelvic sidewall. The cystic structure is significantly smaller in size today measuring 3.0 cm in its largest dimension and previously measured 5.0 cm. The pelvic portion of the gastrointestinal tract is within normal limits. The bony structures reveal degenerative changes seen within the spine and pelvis. Delayed imaging reveals contrast seen in the renal collecting systems bilaterally as well as within the ureters and bladder with no evidence of obstruction. Procedure Note Sonja Rodríguez MD - 08/01/2020 EXAMINATION: CT ABDOMEN AND PELVIS W CONTRAST- INDICATION: Abdominal pain, recent liver biopsy, nausea and vomiting, right upper quadrant pain. TECHNIQUE: Multiple axial CT imaging was obtained of the abdomen and pelvis following the administration of intravenous contrast. The radiation dose reduction device was turned on for each scan per the ALARA (As Low as Reasonably Achievable) protocol. COMPARISON: 12/16/2018. FINDINGS: ABDOMEN: The lung bases are grossly clear. There is diffuse fatty infiltration identified of the liver. The gallbladder has been surgically removed. The spleen is enlarged measuring in length from pole to pole 18.6 cm. No underlying mass or lesion. The pancreas is homogeneous. The kidneys and adrenal glands are within normal limits. The abdominal portion of the gastrointestinal tract is within normal limits. No free fluid or free air. No abnormal mass or fluid collection is identified. PELVIS: The pelvic organs are unremarkable. The pelvic portion of the gastrointestinal tract is within normal limits. The appendix is normal. There is free fluid identified within the pelvis with decrease seen in size of the cystic lesion along the left pelvic sidewall. The cystic structure is significantly smaller in size today measuring 3.0 cm in its largest dimension and previously measured 5.0 cm. The pelvic portion of the gastrointestinal tract is within normal limits. The bony structures reveal degenerative changes seen within the spine and pelvis. Delayed imaging reveals contrast seen in the renal collecting systems bilaterally as well as within the ureters and bladder with no evidence of obstruction. IMPRESSION: 1. Abnormal free fluid identified within the pelvis, however, there has been significant decrease seen in size of the cystic lesion along the left pelvic sidewall in the interval. Clinical correlation is needed. 2. Fatty infiltration seen in the liver with enlargement of the spleen. Remainder of the abdomen and pelvis is grossly unremarkable. No abnormality is seen surrounding the liver. E: 08/01/2020 This report was finalized on 08/01/2020 4:[address] Sonja Rodríguez MD. Artie Wiley MD IMG CT ORDERABLES Final Resul t * Colonoscopy (01/21/2018) Ilan Singh MD SURGICAL HISTORY PROCEDURES Fi nal Result from Last 3 Months or Most Recently Relevant to Health Maintenance Insurance MEDICARE A & B Member Subscriber Plan / Payer (Ef fective 2019-Present) Name:Homero Bell Member ID:[id number] Relation to Subscriber:Self Name:Homero Bell Subscriber ID:[id number] Payer ID:[id number] Group ID:Not on file Type:Not on file Address: [address] [place] [id number] [facility] Advance Directives * CPR (Attempt to Resuscitate) (Latest Code Status on File) Date Activated Date Inactivated Comments 08/01/2020 12:44 PM 08/03/2020 1:44 PM Question Answer Comments Code Status (Patient has no pulse and is not breathing): CPR (Attempt to Resuscitate) Medical Interventions (Patie nt has pulse or is breathing): Full Level Of Support Discussed With: Patient * Full Code Date Activated Date Inactivated Comments 09/15/2017 10:53 AM 09/18/2017 8:29 PM Care Teams Gettering Operator Relationship Specialty Start Date End Date Desiree Fofana DO [address] [place] [address] PCP - General Family Medicine 01/25/25
--- OUTSIDE RECORDS SUMMARY | 2025-05-23 09:43 | XMS_ITS | Encounter Summary ---
Author Organization [employer] ([place], [place], [place], [place]) Address [address] [place] [address] Care Team Providers Care Slotter Operator Helper Name Role Phone Anusha Alberto PA-C Primary Care Provider Jorge Luis Meléndez MD Unavailable [phone] Encounter Details Date Type Department Care Team (Late st Contact Info) Description 10/13/2019 Transcribed Document [facility] Family Medicine [address] [place] [address] ProviderСветлана MD [address] [place] [id number] Social History Tobacco Use Types Packs/Day Years Used Date Smoking Tobacco: Never Assessed Sex and Gender Information Value Date Recorded Sex Assigned at Not on file Legal Sex Male 5:17 PM CDT Gender Identity Not on file Sexual Orientation Not on file documented as of this encounter Miscellaneous Notes * Cerner Conversion Note - Светлана ProviderMD - 10/13/2019 5:30 AM TREE AND SHRUB TECHNICIAN Patient: JACKSON BELL Age: 64 years Sex: Male : 1955 Associated Diagnoses: Dyspnea; Acute bacterial bronchitis Author: MIKO GARCIA MD Basic Information Time seen: Date & time 10/13/2019 05:30:00. History source: Patient. Arrival mode: Private vehicle. History limitation: None. Additional information: Chief Complaint from Nursing Triage Note : Chief Complaint 10/13/2019 5:17 EST Chief Complaint Pt from home with c/o SOA and pressure in his chest. He states, I keep getting all these air bubbles and I can't hardly lay flat. . History of Present Illness This is a 64-year-old male with a past medical history significant for hepatitis C cirrhosis, metastatic prostate cancer, Kdtfi-Lahhmhxnv-Scsnt status post ablation with no residual difficulties, who presents to the emergency department for evaluation of shortness of breath and a bubbling sensation in his chest that is worse whenever he takes a deep breath. This has been occurring over the last several hours earlier this morning. He states he's had a cold for several days with a runny nose, but no cough or fever. No vomiting or diarrhea. For the last several hours he has had difficulty lying flat in that he feels short of breath. No chest pain. No history of DVT or PE. He does not take any blood thinners. No known history of CHF or coronary artery disease. Review of Systems Additional review of systems information: 10 point review of systems reviewed and negative except as stated in history of present illness . Health Status Allergies: Allergic Reactions (Selected) No Known Allergies . Medications: (Selected) Documented Medications Documented Non Formulary Medication: 50 mg, Daily, MILK THISTLE, 0 Refill(s) Tylenol 325 mg oral tablet: 2 Tab, Oral, Q4H, PRN: for pain, 120 Tab, 0 Refill(s) Vitamin B Complex oral capsule: 1 Cap, Oral, Daily, 30 Cap, 0 Refill(s) , per nurse's notes. Immunizations: Per nurse's notes. Past Medical/ Family/ Social History Medical history Reviewed as documented in chart. Surgical history: Reviewed as documented in chart. Family history: Reviewed as documented in chart. Social history: Reviewed as documented in chart. Problem list: Active Problems (15) Anemia Arthritis Back pain Cardiac arrhythmia Disorder of prostate Fibrosis of liver GERD - Gastro-esophageal reflux disease Hepatitis Hiatal hernia High blood pressure Irritable bowel syndrome Murmur Peripheral vascular disease Restless legs syndrome Sinusitis , per nurse's notes. Physical Examination Vital Signs Vital Signs/Vital Measures 10/13/2019 5:17 EST Blood Pressure Location Arm, right upper Blood Pressure Source Non-Invasive BP Device Systolic Blood Pressure 185 mmHg HI Diastolic Blood Pressure 95 mmHg HI Temperature Source Oral Temperature Mode Fahrenheit Temperature, Fahrenheit 98.0 Deg F Clinical Temperature, C 36.7 Deg C Peripheral Pulse Rate 99 bpm Respiratory Rate 16 Breaths/Min Oxygen Saturation 100 % Oxygen Therapy Mode Room air . Per nurse's notes. General: Alert, no acute distress. Skin: Warm, dry, Jaundice. Head: Normocephalic. Neck: Supple. Ears, nose, mouth and throat: Oral mucosa moist. Cardiovascular: No murmur, Borderline tachycardia, regular rhythm. Respiratory: Respirations are non-labored, breath sounds are equal, Crackles throughout. Gastrointestinal: Soft, Nontender, Non distended. Neurological: Alert and oriented to person, place, time, and situation, normal speech observed, normal coordination observed. Psychiatric: Cooperative. Medical Decision Making Documents reviewed: Emergency department nurses' notes, prior records. Electrocardiogram: Time 10/13/2019 05:18:00, rate 105, normal sinus rhythm, normal ID & QRS intervals, EP Interp, PVC . Normal ID, QRS and QTc. STEMI. Electrocardiogram: Time 10/13/2019 08:22:00, rate 82, normal sinus rhythm, No ST changes, normal ID & QRS intervals, EP Interp, no STEMI. Results review: Labs (Last four charted values) WBC 4.1 (OCT 13) HB L 9.9 (OCT 13) HCT L 28.4 (OCT 13) Plt L 140 (OCT 13) Na 138 (OCT 13) K 4.0 (OCT 13) Cl 110 (OCT 13) CO2 23 (OCT 13) BUN 13 (OCT 13) Cr 0.90 (OCT 13) Glu R H 144 (OCT 13) Ca 9.0 (OCT 13) AST H 38 (OCT 13) ALT H 66 (OCT 13) ALK P 93 (OCT 13) T Bili H 3.4 (OCT 13) PTN 7.8 (OCT 13) ALB 4.3 (OCT 13) Troponin <0.015 (OCT 13) <0.015 (OCT 13) . Chest X-Ray: No acute disease process, interpretation by Emergency Physician. Radiology results: Radiology Results (Last 48 hours) [id number] -- 10/13/2019 05:08 CR Chest 1 Vw Portable (10/13/2019 06:00) Result: PORTABLE CHEST; HISTORY: Shortness of air.COMPARISON: February 20, 2015.FINDINGS: The heart is normal in size. The mediastinum is unremarkable.There is emphysema. There is no evidence of acute infiltrate oreffusion. There is no pneumothorax. IMPRESSION: No acute process.Emphysema.Images reviewed, interpreted, and dictated by Dr. Gail Velasquez.Transcribed by Soo Pandya PA-C. CTA Chest PE Protocol (10/13/2019 07:04) Result: CTA/PE PROTOCOL CHEST CT: 10/13/2019 6:10 AM HISTORY: Shortness of breath.COMPARISON: None.TECHNIQUE: The patient was injected with IV contrast. Axial images wereobtained through the chest in a CTA/PE protocol. 3D reconstructionimages were also performed. This study was performed with techniques tokeep radiation doses as low as reasonably achievable, (ALARA).Individualized dose reduction techniques using automated exposurecontrol or adjustment of mA and/or kV according to the patient size wereemployed.FINDINGS: Heart size is normal. Prominent paratracheal lymph nodes arepresent. There is no pericardial or pleural effusion. The spleen isenlarged. Post cholecystectomy. There is no dissection. There is no PE.There is no suspicious infiltrate or lung nodule.IMPRESSION: No dissection or PE.Marked splenomegaly. . Notes: Patient maintaining oxygen saturations of about 95% on room air. He is borderline tachycardic and initially hypertensive, but this improves as he rests in the bed. Chest x-ray shows no acute process including no pneumonia, pneumothorax, widened mediastinum or florid pulmonary edema. No new cardiomegaly. No significant leukocytosis or fever. CTA chest pending. Patient care transferred to Dr. Miller at 0700.. Impression and Plan Diagnosis Dyspnea - Discharge, Medical Acute bacterial bronchitis - Discharge, Medical Plan Condition: Stable. Disposition: Discharged Admit/Transfer/Discharge: Discharge (Order): Start: 10/13/2019 8:59 EST, Discharge to: Home , Patient care transitioned to: Time: 10/13/2019 07:00:00, BOB MILLER MD. Prescriptions: Prescription Slasher Machine Operator Pharmacy: amoxicillin 500 mg oral capsule (Prescribe): 1 Cap, Oral, TID, for 10 Day(s), 30 Cap, 0 Refill(s) . Patient was given the following educational materials: Shortness of Breath, Adult, Sxhi-dv-Xhxn, Acute Bronchitis, Adult, Ehwt-[id number]-Enmk. Follow up with: ; [facility] (Find a Doc) Within 2 to 3 days. Counseled: Patient, Regarding diagnosis, Regarding diagnostic results, Regarding treatment plan, Regarding prescription, Patient indicated understanding of instructions. Addendum Patient presented with new cough last 2 days with shortness of breath. No acute findings on EKG troponin ??2. Negative chest CTA. Patient is immunocompromised and has symptoms consistent with bronchitis. We'll cover with amoxicillin. Follow with PCP and given clear return precautions. No hypoxia or respiratory distress on room air. Electronically signed by Gato Schwartz Conversion It Security Consulting Director Cerner at 03/11/2023 10:33 AM CDT documented in this encounter Plan of Treatment Not on file documented as of this encounter Visit Diagnoses Not on filedocumented in this encounter Care Teams Slotter Operator Helper Relationship Specialty Start Date End Date Anusha Alberto PA-C PCP - General Physician Transformation Analyst 10/09/22 Jorge Luis Meléndez MD [address] [address] Hematology and Oncology 05/05/25 documented as of this encounter
--- OUTSIDE RECORDS SUMMARY | 2025-05-23 09:43 | XMS_ITS | Encounter Summary ---
Author Organization [employer] ([place], [place], [place], [place]) Address [address] [place] [address] Care Team Providers Care Assistant Director Of Financial Aid Name Role Phone Anusha Alberto PA-C Primary Care Provider Jorge Luis Meléndez MD Unavailable Encounter Details Date Type Department Care Team (Late st Contact Info) Description 10/13/2019 Transcribed Document [facility] Family Medicine [address] [place] [address] ProviderСветлана MD [address] [place] [address] Social History Tobacco Use Types Packs/Day Years Used Date Smoking Tobacco: Never Assessed Sex and Gender Information Value Date Recorded Sex Assigned at Not on file Legal Sex Male 5:17 PM CDT Gender Identity Not on file Sexual Orientation Not on file documented as of this encounter Miscellaneous Notes * Cerner Conversion Note - Светлана ProviderMD - 10/13/2019 5:08 AM CONTRACT LEAD [place] Suicide Severity Rating Scale (C-SSRS) Entered On: 10/13/2019 5:37 EST Performed On: 10/13/2019 5:31 EST by Janie Diaz RN [place] Suicide Severity Rating Scale (C-SSRS) CSSRS Past Month Wish to be : No CSSRS Past Month Suicidal Thoughts : No CSSRS Lifetime Suicide Behavior : No Suicide Severity Rating Score : 0 Suicide Severity Rating : No Additional Care Required at this time Thoughts of Harming/Killing Others : No Janie Diaz RN - 10/13/2019 5:31 EST Electronically signed by Efren, [facility] Conversion Energy And Sustainability Manager Cerner at 03/11/2023 10:37 AM CDT documented in this encounter Plan of Treatment Not on file documented as of this encounter Visit Diagnoses Not on filedocumented in this encounter Care Teams Assistant Director Of Financial Aid Relationship Specialty Start Date End Date Anusha Alberto PA-C PCP - General Physician Starch Dumper 10/09/22 Jorge Luis Meléndez MD [address] [place] [phone] Hematology and Oncology 05/05/25 documented as of this encounter
--- OUTSIDE RECORDS SUMMARY | 2025-05-23 09:44 | XMS_ITS | Encounter Summary ---
Author Organization Healthcare Address [address] [place] [address] Care Team Providers Care Tension Worker Name Role Phone Mohsen Harris MD Primary Care Provider + Encounter Details Date Type Department Care Team (Late st Contact Info) Description 08/26/2021 Orders Only [facility] [address] [place] [address] Bre Nash MD [address] [address] Social History Tobacco Use Types Packs/Day Years Used Date Smoking Tobacco: Former Alcohol Use Standard Drinks/Week Comments Yes 0 (1 standard drink = 0.6 oz pure alcohol) Alcoholic Drinks/day: Acute alcohol use Sex and Gender Information Value Date Recorded Sex Assigned at Not on file Legal Sex Male 6:20 PM EDT Gender Identity Not on file Sexual Orientation Not on file COVID-19 Exposure Response Date Recorded In the last month, have you been in contact with someone who was confirmed or suspected to have Coronavirus / COVID-19? No / Unsure 07/30/2021 9:24 AM EDT documented as of this encounter Plan of Treatment Not on file documented as of this encounter Procedures Procedure Name Priority Date/Time Associated Diagnosis Comments TSH Routine 08/26/2021 10:17 AM EDT documented in this encounter Results * Thyroid Stimulating Hormone, Plasma (08/26/2021 10:17 AM EDT) External Thyroid Stimulating Hormone (TSH) 3.100 0.270 - 4.200 uIU/mL [facility] 08/26/2021 10:1 7 AM EDT 08/26/2021 10:48 AM EDT us Bre Nash MD LAB BLOOD ORDERABLES Final Re sult [facility] [address] [place] [address], documented in this encounter Visit Diagnoses Not on filedocumented in this encounter Care Teams Tension Worker Relationship Specialty Start Date End Date Mohsen Harris MD [address] [place] [address] PCP - General 07/30/21 documented as of this encounter
--- OUTSIDE RECORDS SUMMARY | 2025-05-23 09:44 | XMS_ITS | Encounter Summary ---
Author Organization Healthcare Address [address] [place] [address] Care Team Providers Care Oracle Adf Consultant Name Role Phone Mohsen Harris MD Primary Care Provider + Encounter Details Date Type Department Care Team (Late st Contact Info) Description 08/26/2021 Orders Only [facility] at [facility] [address] [place] [address] Bre Nash MD [address] [address] Social History Tobacco Use Types [...] Procedure Name Priority Date/Time Associated Diagnosis Comments RETICULOCYTES, BLOOD Routine 08/26/2021 10:17 AM EDT documented in this encounter Results * (ABNORMAL) Reticulocytes, Blood (08/26/2021 10:17 AM EDT) External Retic Count-Percent 7.75(H) 1.06 - 2.63 % [facility] External Reticulocyte Absolute 0.25(H) 0.02 - 0.13 M/uL [facility] 08/26/2021 10:1 7 AM EDT 08/26/2021 10:48 AM EDT us Bre Nash MD LAB BLOOD ORDERABLES Final Re sult [facility] [address] [place] [address], [place] [phone] documented in this encounter Visit Diagnoses Not on filedocumented in this encounter Care Teams Oracle Adf Consultant Relationship Specialty Start Date End Date Mohsen Harris MD [address] [phone] PCP - General 07/30/21 documented as of this encounter
--- OUTSIDE RECORDS SUMMARY | 2025-05-23 09:44 | XMS_ITS | Encounter Summary ---
Author Organization [employer] ([place], [place], [place], [place]) Address [address] [place] [address] Care Team Providers Care Book Retailer Name Role Phone Anusha Alberto PA-C Primary Care Provider Jorge Luis Meléndez MD Unavailable [phone] Encounter Details Date Type Department Care Team (Late st Contact Info) Description 10/13/2019 Transcribed Document [facility] [place] Family Medicine [address] [place] [address] ProviderСветлана MD [address] [place] [place], [place] [address] Social History Tobacco Use Types Packs/Day Years Used Date Smoking Tobacco: Never Assessed Sex and Gender Information Value Date Recorded Sex Assigned at Not on file Legal Sex Male 5:17 PM CDT Gender Identity Not on file Sexual Orientation Not on file documented as of this encounter Miscellaneous Notes * [employer]ner Conversion Note - Светлана ProviderMD - 10/13/2019 5:08 AM QUARRY PLANT CRUSHER OPERATOR ED Assessment Entered On: 10/13/2019 5:37 EST Performed On: 10/13/2019 5:31 EST by Janie Diaz RN ED Quick Look Assessment Level of Consciousness : Alert, Awake Affect/Behavior : Appropriate, Calm, Cooperative Orientation : Oriented x 4 Janie Diaz RN - 10/13/2019 5:31 EST ED General-Functional Assess Information Obtained From : Patient Preferred Communication Mode : Verbal Communication Barrier : None Primary Language : Yemeni Any Spiritual/Cultural Needs or Requests : No Currently in Unsafe Situation : No Janie Diaz RN - 10/13/2019 5:31 EST Social Habits Smoking Status : Former smoker, quit more than 30 days ago Smokeless Tobacco Status : Never Desires Tobacco Cessation Calc : 0 Janie Diaz RN - 10/13/2019 5:31 EST Social History (As Of: 10/13/2019 05:37:23 EST) Tobacco: Smoking Status Former smoker. Years of [...] 07:36:57 EDT by LUZ MARINA MCCOY RN) Cardiovascular ASMT, ED Cardiovascular Assessment WDL : WDL with exceptions (Comment: Pt states he feels like he has Bubbles in his chest He has been short of breath and states there is some pressure. pt slightly tachycardic on arrival. HR 99 in triage. [Janie Diaz RN - 10/13/2019 5:31 EST] ) Janie Diaz RN - 10/13/2019 5:31 EST Respiratory Respiratory Assessment WDL : WDL with exceptions (Comment: Pt c/o SOA, states he has had a cold for a few days. [Janie Diaz RN - 10/13/2019 5:31 EST] ) Janie Diaz RN - 10/13/2019 5:31 EST Breath Sounds Assessment Grid All Lobes Breath Sounds : Crackles, fine Janie Diaz RN - 10/13/2019 5:31 EST Respiratory Pattern Description : Regular Janie Diaz RN - 10/13/2019 5:31 EST Electronically signed by Obinna Schwartz Conversion Document Processing Specialist Cerner at 03/11/2023 10:25 AM CDT documented in this encounter Plan of Treatment Not on file documented as of this encounter Visit Diagnoses Not on filedocumented in this encounter Care Teams Book Retailer Relationship Specialty Start Date End Date Anusha Alberto PA-C PCP - General Physician Candy Department Manager 10/09/22 Jorge Luis Meléndez MD [facility] [address] [address] Hematology and Oncology 05/05/25 documented as of this encounter
--- OUTSIDE RECORDS SUMMARY | 2025-05-23 09:44 | XMS_ITS | Encounter Summary ---
Author Organization Healthcare Address [address] [place] [address] Care Team Providers Care Testing Analyst Name Role Phone Mohsen Harris MD Primary Care Provider + Encounter Details Date Type Department Care Team (Late st Contact Info) Description 08/26/2021 Orders Only [facility] [address] [place] [address] Bre Nash MD [address] [address] Social History Tobacco Use Types [...] Procedure Name Priority Date/Time Associated Diagnosis Comments FREE T4, PLASMA Routine 08/26/2021 10:17 AM EDT documented in this encounter Results * Free T4, Plasma (08/26/2021 10:17 AM EDT) External Free T4 1.22 0.93 - 1.70 ng/dL [facility] 08/26/2021 10:1 7 AM EDT 08/26/2021 10:48 AM EDT us Bre Nash MD LAB BLOOD ORDERABLES Final Re sult [facility] [address] [place] [address], documented in this encounter Visit Diagnoses Not on filedocumented in this encounter Care Teams Testing Analyst Relationship Specialty Start Date End Date Mohsen Harris MD [address] [place] [address] PCP - General 07/30/21 documented as of this encounter
--- OUTSIDE RECORDS SUMMARY | 2025-05-23 09:44 | XMS_ITS | Encounter Summary ---
Author Organization [employer] ([place], [place], [place], [place]) Address [address] [place] [address] Care Team Providers Care Capacitor Pack Press Operator Name Role Phone Anusha Alberto PA-C Primary Care Provider Jorge Luis Meléndez MD Unavailable [phone] Encounter Details Date Type Department Care Team (Late st Contact Info) Description 10/13/2019 Transcribed Document [facility] [place] [facility] Family Medicine [address] [place] [address] ProviderСветлана MD [address] [place], [place] [address] Social History Tobacco Use Types Packs/Day Years Used Date Smoking Tobacco: Never Assessed Sex and Gender Information Value Date Recorded Sex Assigned at Not on file Legal Sex Male 5:17 PM CDT Gender Identity Not on file Sexual Orientation Not on file documented as of this encounter Miscellaneous Notes * Cerner Conversion Note - Светлана ProviderMD - 10/13/2019 9:21 AM PHOTOVOLTAIC PANEL INSTALLER ED Discharge Entered On: 10/13/2019 9:21 EST Performed On: 10/13/2019 9:21 EST by Geri Cross RN Discharge Process Patient Disposition : Discharge Personal Belongings With Patient : Yes Patient Education Completed : Yes Teaching Evaluation : Verbalizes understanding IV Discontinued : Yes Nursing Documentation Completed : Yes Geri Cross RN - 10/13/2019 9:21 EST ED Discharge Discharge To : Home with ambulatory/outpatient follow-up Mode Of Departure : Private vehicle Accompanied By : Unaccompanied Discharge Instructions Reviewed With, Opportunity For Questions Given : Patient Prescriptions Given to Patient : Yes Number of Prescriptions Given : 1 Geri Cross, RN - 10/13/2019 9:21 EST Electronically signed by Efren, [facility] Conversion [employer] Chemistry Teacher Cerner at 03/11/2023 10:31 AM CDT documented in this encounter Plan of Treatment Not on file documented as of this encounter Visit Diagnoses Not on filedocumented in this encounter Care Teams Capacitor Pack Press Operator Relationship Specialty Start Date End Date Anusha Alberto PA-C PCP - General Physician Yard Spotter 10/09/22 Jorge Luis Meléndez MD [address] [place] [address] Hematology and Oncology 05/05/25 documented as of this encounter
--- OUTSIDE RECORDS SUMMARY | 2025-05-23 09:44 | XMS_ITS | Encounter Summary ---
Author Organization [employer] ([place], [place], [place], [place]) Address [address] [place] [address] Care Team Providers Care Marketing Recruiter Name Role Phone Anusha Alberto PA-C Primary Care Provider Jorge Luis Meléndez MD Unavailable [phone] Encounter Details Date Type Department Care Team (Late st Contact Info) Description 10/13/2019 Transcribed Document [facility] [place] Family Medicine [address] [place] [address] ProviderСветлана MD [address] [place], [place] [address] Social History Tobacco Use Types Packs/Day Years Used Date Smoking Tobacco: Never Assessed Sex and Gender Information Value Date Recorded Sex Assigned at Not on file Legal Sex Male 5:17 PM CDT Gender Identity Not on file Sexual Orientation Not on file documented as of this encounter Miscellaneous Notes * Cerner Conversion Note - Светлана ProviderMD - 10/13/2019 9:01 AM TOURING PRODUCTION MANAGER Electronically signed by [facility] Conversion Body Finisher Cerner at 03/11/2023 10:23 AM CDT documented in this encounter Plan of Treatment Not on file documented as of this encounter Visit Diagnoses Not on filedocumented in this encounter Care Teams Marketing Recruiter Relationship Specialty Start Date End Date Anusha Alberto PA-C PCP - General Physician Mail Reader 10/09/22 Jorge Luis Meléndez MD [address] [address] Hematology and Oncology 05/05/25 documented as of this encounter
--- OUTSIDE RECORDS SUMMARY | 2025-05-23 09:44 | XMS_ITS | Encounter Summary ---
Author Organization Healthcare Address [address] [place] [address] Care Team Providers Care Power System Engineer Name Role Phone Mohsen Harris MD Primary Care Provider + Encounter Details Date Type Department Care Team (Late st Contact Info) Description 08/26/2021 Orders Only [facility] at [facility] [address] [place] [address] Bre Nash MD [address] [address] Social History Tobacco Use Types [...] Procedure Name Priority Date/Time Associated Diagnosis Comments QUANTITATIVE IMMUNOGLOBULINS Routine 08/26/2021 10:17 AM EDT documented in this encounter Results * (ABNORMAL) Quantitative Immunoglobulins (08/26/2021 10:17 AM EDT) External IgG, Serum 1,616(H) 700 - 1,600 mg/dL [facility] External IgA Quant <5(L) 70 - 400 mg/dL [facility] External IgM Quant 49 40 - 230 mg/dL [facility] 08/26/2021 10:1 7 AM EDT 08/26/2021 10:48 AM EDT us Bre Nash MD LAB BLOOD ORDERABLES Final Re sult [facility] [address] [place] [address], [place] [phone] documented in this encounter Visit Diagnoses Not on filedocumented in this encounter Care Teams Power System Engineer Relationship Specialty Start Date End Date Mohsen Harris MD [address] [place] [address] PCP - General 07/30/21 documented as of this encounter
--- OUTSIDE RECORDS SUMMARY | 2025-05-23 09:44 | XMS_ITS | Encounter Summary ---
Author Organization Healthcare Address [address] [place] [address] Care Team Providers Care Level Vial Sealer Name Role Phone Mohsen Harris MD Primary Care Provider + Encounter Details Date Type Department Care Team (Late st Contact Info) Description 08/26/2021 Orders Only [facility] at [facility] [address] [place] [address] Bre Nash MD [address] [address] Social History Tobacco Use Types [...] Procedure Name Priority Date/Time Associated Diagnosis Comments LACTATE DEHYDROGENASE, PLASMA Routine 08/26/2021 10:17 AM EDT documented in this encounter Results * Lactate Dehydrogenase, Plasma (08/26/2021 10:17 AM EDT) External LDH Lactate Dehydrogenase SEE BELOW U/L [facility] Comment: TEST NOT PERFORMED Specimen unsuitable for testing due to hemolysis. TEST PERFORMED AT: [facility] [employer] [address] [phone] BRUCE DELA CRUZ M.D. 08/26/2021 10:1 7 AM EDT 08/26/2021 1:23 PM EDT us Bre Nash MD LAB BLOOD ORDERABLES Final Re sult [facility] [address] [place] [address], [place] [phone] documented in this encounter Visit Diagnoses Not on filedocumented in this encounter Care Teams Level Vial Sealer Relationship Specialty Start Date End Date Mohsen Harris MD [address] [place] [address] PCP - General 07/30/21 documented as of this encounter
--- OUTSIDE RECORDS SUMMARY | 2025-05-23 09:44 | XMS_ITS | Encounter Summary ---
Author Organization Healthcare Address [address] [place] [address] Care Team Providers Care Mobile Sales Assistant Name Role Phone Mohsen Harris MD Primary Care Provider + Encounter Details Date Type Department Care Team (Late st Contact Info) Description 08/26/2021 Orders Only [facility] at [facility] [address] [place] [address] Bre Nash MD [address] [address] Social History Tobacco Use Types [...] Procedure Name Priority Date/Time Associated Diagnosis Comments VITAMIN B12/FOLATE PANEL Routine 08/26/2021 10:17 AM EDT documented in this encounter Results * Vitamin B12/Folate Panel (08/26/2021 10:17 AM EDT) External Folate, Serum >20.0 4.6 - 34.8 ng/mL [facility] External Vitamin B12 953 232 - 1,245 pg/mL [facility] 08/26/2021 10:1 7 AM EDT 08/26/2021 11:24 AM EDT us Bre Nash MD LAB BLOOD ORDERABLES Final Re sult Performing Organization Address City/State/[facility] Co de Phone Number [facility] [address] [place] [address], documented in this encounter Visit Diagnoses Not on filedocumented in this encounter Care Teams Mobile Sales Assistant Relationship Specialty Start Date End Date Mohsen Harris MD [address] [phone] PCP - General 07/30/21 documented as of this encounter
[2025-05-23 10:03] LABS: Hematocrit 29.2 % (42.0-52.0); Hemoglobin 10.5 g/dL (14.1-18.0); Immature Granulocytes % 0.3 %; Mean Corpuscular HGB Conc 36.0 g/dL (31.8-35.4); Mean Corpuscular Hemoglobin 35.1 pg (27.0-31.2); Mean Corpuscular Volume 97.7 fl (80-94); Nucleated Red Blood Cells % 0 %; Platelet Count 117 K/mm3 (142-424); Red Blood Count 2.99 M/mm3 (4.60-6.20); Red Cell Distribution Width-SD 53.5 fL; White Blood Count 3.8 K/mm3 (4.8-10.8)
[2025-05-23 10:17] LABS: INR 1.09 (0.9-1.1); Prothrombin Time 12.0 seconds (10.1-12.5)
[2025-05-23 11:17] LABS: Alanine Aminotransferase 40 U/L (12-78); Albumin Level 5.1 g/dl (3.5-5.0); Albumin/Globulin Ratio 1.8 (1.1-1.8); Alkaline Phosphatase 63 U/L (38-126); Anion Gap 18.1 mEq/L (5-15); Aspartate Amino Transferase 42 U/L (17-59); Bilirubin,Total 5.1 mg/dl (0.2-1.3); Blood Urea Nitrogen 14 mg/dl (9-20); Calcium 10.2 mg/dl (8.4-10.2); Carbon Dioxide 24 mmol/L (22.0-30.0); Chloride 100 mmol/L (98-107); Creatinine,Serum 0.70 mg/dl (0.66-1.25); Estimated Glomerular Filt Rate 111 ml/min (>60); GFR (African American) 135 ML/MIN (>60); Globulin 2.9 g/dL (1.3-3.2); Glucose 111 mg/dl (74-100); Potassium 4.1 mmoL/L (3.5-5.1); Sodium 138 mmol/L (136-145); Total Protein,Serum 8.0 g/dl (6.3-8.2)
== END 2025-05-23 23:59 | disposition home or self-care (01) ==
LOC: LAB 09:41
PROVIDERS: PCP Family Medicine; Visit Provider Internal Medicine Gastroenterology
DX: K75.81 Nonalcoholic steatohepatitis (NASH) (principal); K74.60 Unspecified cirrhosis of liver; K74.69 Other cirrhosis of liver; B19.20 Unspecified viral hepatitis C without hepatic coma
CPT/HCPCS: 36415; 80053; 82105; 85025; 85610

== ENCOUNTER 2025-11-06 10:01 | Outpatient (CLI) | payer MEDICARE, OTHER, SELFPAY ==
--- NOTE | 2025-11-06 10:30 | US_ITS ---
FINAL REPORT CLINICAL HISTORY: LACEY COMPARISON: None FINDINGS: Limited sonographic images of the abdomen were obtained. The pancreas is partially obscured. There is fatty infiltration of the liver. The gallbladder is absent. There is no evidence of biliary ductal dilatation.The common duct measures 8 mm. Limited images of the right kidney are unremarkable. The spleen is enlarged measuring 17 cm. There is an echogenic focus contiguous with or arising from the spleen which could represent hemangioma but difficult to fully characterize on ultrasound. IMPRESSION: Fatty liver. Splenomegaly. Echogenic focus contiguous with or arising from the spleen. Recommend pre and post abdomen and pelvis CT to further evaluate. Reviewed, Interpreted and Dictated by Melvin You MD Transcribed by Gisselle Franklin Authenticated and [facility]
[2025-11-06 10:49] LABS: Hematocrit 29.1 % (42.0-52.0); Hemoglobin 10.5 g/dL (14.1-18.0); Immature Granulocytes % 0.2 %; Mean Corpuscular HGB Conc 36.1 g/dL (31.8-35.4); Mean Corpuscular Hemoglobin 35.0 pg (27.0-31.2); Mean Corpuscular Volume 97.0 fl (80-94); Nucleated Red Blood Cells % 0 %; Platelet Count 130 K/mm3 (142-424); Red Blood Count 3.00 M/mm3 (4.60-6.20); Red Cell Distribution Width-SD 54.4 fL; White Blood Count 4.3 K/mm3 (4.8-10.8)
[2025-11-06 10:56] LABS: Albumin Level 5.1 g/dl (3.5-5.0); Chloride 105 mmol/L (98-107); Sodium 137 mmol/L (136-145)
[2025-11-06 10:57] LABS: Potassium 4.2 mmoL/L (3.5-5.1)
[2025-11-06 10:59] LABS: Alanine Aminotransferase 42 U/L (12-78); Albumin/Globulin Ratio 1.6 (1.1-1.8); Alkaline Phosphatase 60 U/L (38-126); Anion Gap 10.2 mEq/L (5-15); Aspartate Amino Transferase 42 U/L (17-59); Bilirubin,Total 4.9 mg/dl (0.2-1.3); Blood Urea Nitrogen 15 mg/dl (9-20); Carbon Dioxide 26 mmol/L (22.0-30.0); Creatinine,Serum 0.80 mg/dl (0.66-1.25); Estimated Glomerular Filt Rate 95 ml/min (>60); GFR (African American) 115 ML/MIN (>60); Globulin 3.1 g/dL (1.3-3.2); Total Protein,Serum 8.2 g/dl (6.3-8.2)
[2025-11-06 11:00] LABS: Ammonia 11 umol/L (9-30); Calcium 9.2 mg/dl (8.4-10.2); Glucose 103 mg/dl (74-100); INR 1.14 (0.9-1.1); Prothrombin Time 12.5 seconds (10.1-12.5)
== END 2025-11-06 23:59 | disposition home or self-care (01) ==
LOC: RAD 10:02
PROVIDERS: PCP Family Medicine; Visit Provider Internal Medicine Gastroenterology
DX: K76.82 Hepatic encephalopathy (principal); K75.81 Nonalcoholic steatohepatitis (NASH); K74.69 Other cirrhosis of liver; B19.20 Unspecified viral hepatitis C without hepatic coma; R16.1 Splenomegaly, not elsewhere classified; R93.89 Abnormal findings on diagnostic imaging of other specified body structures
CPT/HCPCS: 36415; 76705; 80053; 82105; 82140; 85025; 85610